=== PATIENT | female | born 1945 | race Caucasian/White ===

== ENCOUNTER 2018-01-29 12:19 | Observation (INO) | payer MEDICARE, OTHER, SELFPAY ==
[2018-01-29] VITALS (11 sets, daily range): BP systolic 115–152; BP diastolic 67–83; PULSE 60–80; RESP 14–18; TEMP 36.8–37.2; O2SAT 95–99; BMI 27.3; BMI 25.8; BMI 25.9
--- NOTE | 2018-01-29 12:25 | NURSING ---
NO OLD EKGS
--- NOTE | 2018-01-29 13:06 | EKG12_ITS ---
Test Reason : CP Blood Pressure : / mmHG Vent. Rate : 065 BPM Atrial Rate : 065 BPM P-R Int : 200 ms QRS Dur : 086 ms QT Int : 440 ms P-R-T Axes : 044 -07 047 degrees QTc Int : 457 ms Normal sinus rhythm Low voltage QRS Borderline ECG Confirmed by RENAY LAGUERRE, MITESH ([id number]), news video editor AG AGUILAR ([id number]) on 02/01/2018 1:21:33 PM Referred By: Mitesh Niño Confirmed By:MITESH NIÑO MD
--- NOTE | 2018-01-29 13:06 | RAD_ITS ---
STUDY: X-RAY CHEST REASON FOR EXAM: Female, 72 years old. Chest pain. TECHNIQUE: Single AP portable view of the chest. COMPARISON: Comparison is made with prior study dated September 09, 2014. FINDINGS: EKG lead which are seen. Hyperinflation. Scattered calcified granulomas. There is no demonstrated pleural abnormality. Normal size heart. Normal mediastinum and bailey. Normal visualized pulmonary arteries. There is atherosclerotic tortuosity of the aortic arch and descending thoracic aorta. There are degenerative changes of the visualized thoracic spine. Normal visualized ribs, clavicles, and shoulders. There is no demonstrated abnormality of the visualized soft tissue structures of the upper abdomen. RAD/Chest 1 View (Portable) IMPRESSION: Hyperinflation. Scattered calcified granulomas. Electronically Signed: Boris Pina MD at 13:26 EDT Tel [phone], Service support ,
[2018-01-29 13:18] LABS: Absolute Lymphocyte Count 2.32 X10^3/ul (0.83-4.51); Absolute Neutrophil Count 4.1 X10^3/uL (2.0-7.7); Basophil# 0.02 X10^3/uL; Basophil% 0.3 % (0-1); Eosinophil# 0.07 X10^3/uL; Hematocrit 42.7 % (37-47); Hemoglobin 13.9 g/dl (12.0-15.0); Lymphocyte # 2.32 X10^3/ul (4.0); Lymphocyte % 32.6 % (19-41); Mean Corp Hgb Conc 32.6 g/gl (32-36); Mean Corpuscular Hgb 32.8 pg (27.0-32.0); Mean Corpuscular Volume 100.7 fL (81-99); Mean Platelet Vol. 10.2 fl (6.2-12.0); Monocyte# 0.59 X10^3/uL; Monocyte% 8.3 % (0-10); Neutrophil # 4.11 X10^3/uL (2.7-7.7); Neutrophil % 57.8 % (47-70); Platelet Count 269 K/mm3 (150-450); RBC Distribution Width SD 47.4 fl (35.1-43.9); Red Blood Count 4.24 M/mm3 (4.2-5.4); White Blood Count 7.1 K/mm3 (4.4-11.0)
[2018-01-29 13:22] LABS: POSITIVE COUNT NO; POSITIVE DIFFERENTIAL NO; POSITIVE MORPHOLOGY NO
[2018-01-29 13:26] LABS: Anion Gap 8 (5-15); BUN 15 mg/dL (7-18); BUN/Creat Ratio 17.7 RATIO (10-20); Chloride 105 mmol/L (98-107); Creatinine, Serum 0.85 mg/dL (0.55-1.02); EST Glomerular Filtration Rate 70 mL/min (>60); Est Glom Filt Rate - Afr Amer 85 mL/min (>60); Estimated Creatinine Clearance 45.81 ml/min; Glucose 93 mg/dL (74-106); Potassium 3.6 mmol/L (3.5-5.1); Sodium Level 141 mmol/L (136-145)
[2018-01-29] MEDS: Nitroglycerin Oint 1 INCH PACKET TRANSDERM. ×2 (14:23→18:52)
[2018-01-29] MEDS: Acetaminophen 500 MG Tablet 1000 MG PO (15:12)
--- NOTE | 2018-01-29 15:18 | NURSING ---
DR SCHWAB IN ER
--- NOTE | 2018-01-29 15:22 | ED.VISSUMM ---
- ER Visit Summary Date of Service: 01/29/18 Chief Complaint: Chest pain History of Present Illness: The patient is a 72 F with intermittent chest pain for 2-3 days. The episodes last about a half an hour. No shortness of breath. No fever or chills she describes the episode of aching. She has a history of PTCA 3 years ago, as well as hypertension hypercholesterolemia and a strong family history of cardiac disease. Physical Examination: Not appear in acute distress. Moist mucous membranes, no obvious facial deformity No C-spine tenderness supple neck. Regular rate and rhythm without any obvious murmurs Clear lungs bilaterally speaking in full sentences without any obvious respiratory distress Abdomen soft and nontender no guarding or rebound Moves all extremities without any difficulty or pain. Skin does not show any obvious rashes or lesions, no trauma. Alert oriented ?3 with no gross focal deficit Emergency Department Course and Treatment: Patient has an unremarkable workup, normal EKG and first troponin, nitroglycerin was placed 1 inch, her chest pain is gone she developed a slight headache which was treated with Tylenol. I discussed the patient with cardiology, Dr. Rodriguez patient will be admitted for further workup. Disposition: Stable condition Impression: Chest pain This note was generated with [employer] dictation software. It may contain incorrect words, spelling, and punctuation that were not noted in review of the chart prior to signing ED Disposition - Plan for ED Patient: Chief Complaint: Chest Pain Referrals: Luis Lyons DO [Primary Care Provider] -
--- NOTE | 2018-01-29 15:38 | NURSING ---
CALLED TO GIVE OKAY SEND PT UP
--- NOTE | 2018-01-29 16:02 | PCM.HP.STD ---
Problem List (1) Hypertension Status: Chronic Qualifiers: (2) Hyperlipidemia Status: Chronic Qualifiers: (3) Mitral valve prolapse Status: Chronic (4) Atherosclerotic heart disease of [place] coronary artery without angina pectoris Status: Chronic Qualifiers: (5) Angina pectoris Status: Chronic (6) Postsurgical percutaneous transluminal coronary angioplasty (PTCA) status Status: Chronic Comment: PTCA with ALYSSA to proximal LAD 2004; PCI-ALYSSA LAD 09/18/14 @ [facility] (7) Encounter for long-term current use of high risk medication Status: Chronic (8) Palpitations Status: Chronic (9) Ventricular premature depolarization Status: Chronic (10) Atypical chest pain Status: Acute History of Present Illness Date of Admission: 01/29/18 Chief Complaint: Chest pain for last 1 week The patient is a 72 year old F with history of coronary artery disease status post stent in proximal LAD in 08/2014 in [facility] went to see Kristin Aceves in cardiology office from where she was sent to ED for evaluation of chest heaviness, progressively worsening for last 1 week. Patient said she was doing good after cardiac stent in 2014 until she noticed some chest heaviness and chest pounding on mild exertion/walking for last 1 week. She also gets mild shortness of breath along with chest tightness but denies near syncope or syncope. In ED, she was put on nitro ointment which she gave some relief but got headache. Vital signs are stable in ED. EKG shows normal sinus rhythm at [address]-T changes. [] Basic labs in ED is unremarkable. She further states her blood pressure and cholesterol level are controlled on medications. Chest x-ray does not show acute change. Past Medical History Past Medical History (Chronic Problems): Chronic Problems (Last Updated 10/27/17 @ 11:23 by KRISTIN Gutierrez) Hypertension (Chronic) Hyperlipidemia (Chronic) Mitral valve prolapse (Chronic) Atherosclerotic heart disease of [place] coronary artery without angina pectoris (Chronic) Angina pectoris (Chronic) Postsurgical percutaneous transluminal coronary angioplasty (PTCA) status (Chronic) PTCA with ALYSSA to proximal LAD 2004; PCI-ALYSSA LAD 09/18/14 @ [facility] Encounter for long-term current use of high risk medication (Chronic) Palpitations (Chronic) Ventricular premature depolarization (Chronic) Medical History: Medical History (Last Updated 10/27/17 @ 11:23 by KRISTIN Gutierrez) Hypertension (Chronic) I10 Hyperlipidemia (Chronic) E78.5 Mitral valve prolapse (Chronic) I34.1 Atherosclerotic heart disease of [place] coronary artery without angina pectoris (Chronic) I25.10 Angina pectoris (Chronic) I20.9 Palpitations (Chronic) R00.2 Ventricular premature depolarization (Chronic) I49.3 Body mass index (bmi) 27.0-27.9, adult Z68.27 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 Allergies lisinopril Allergy (Verified 01/29/18 12:22) Unknown Home Medications: Ambulatory Orders Medication Instructions Recorded Amlodipine Besylate [Amlodipine 5 mg PO DAILY 09/16/14 Besylate] Aspirin [Aspirin, Baby] 81 mg PO DAILY@0800 09/16/14 Atorvastatin Calcium [Lipitor] 80 mg PO QHS 09/16/14 Escitalopram Oxalate [Lexapro] 10 mg PO DAILY 09/16/14 Trazodone HCl 300 mg PO DAILY 09/16/14 hydrocodone 5 mg-acetaminophen 325 PO 7 Days #30 10/27/17 mg tablet ropinirole 0.5 mg tablet PO 90 Days #180 10/27/17 Amiodarone HCl 200 mg PO QDAY 01/29/18 Surgical History: Surgical History (Last Reviewed 01/29/18 @ 11:24 by Isabela Lares) Postsurgical percutaneous transluminal coronary angioplasty (PTCA) status (Chronic) Z98.61 PTCA with ALYSSA to proximal LAD 2004; PCI-ALYSSA LAD 09/18/14 @ [facility] H/O foot surgery Z98.890 H/O total hip arthroplasty Z96.649 right hip 10/2012 H/O: hysterectomy Z90.710 1969's Smoking Status: Never smoker - *Family History Paternal Family History: Family History (Last Reviewed 01/29/18 @ 11:24 by Isabela Lares) Father CAD (coronary artery disease) Cancer Rheumatoid arthritis Mother Cancer Brother Cancer Review of Systems Constitutional: Denies: Chills, Fever, Weight Change HEENT: Denies: Head Aches, Sinus Congestion, Sinus Drainage Cardiovascular: Reports: Heaviness. Denies: Palpitations Respiratory: Reports: Shortness of breath upon exertion. Denies: Cough, Shortness of breath at rest, Sputum production Gastrointestinal: Denies: Abdominal Pain, Nausea, Vomiting Genitourinary: Denies: Dysuria Musculoskeletal: Denies: Joint Pain, Joint Tenderness Skin: Denies: Rash, Wounds Neurological: Denies: Numbness, Tingling, Focal weakness Psychiatric: Denies: Anxiety, Depression, Homicidal Ideations, Suicidal Ideations Hematologic/ Lymphatic: Denies: Easy Bruising, Easy Bleeding VTE Information - Inpt Only VTE Present on Admission: No VTE Mechan Device Prophylaxis: SCD's VTE Pharm Prophylaxis ordered?: Yes Patient Problems: Active and Suspected Problems (Last Updated 10/27/17 @ 11:23 by KRISTIN Gutierrez) Atypical chest pain (Acute) - Physical Exam General: Alert, Oriented x3, Cooperative HEENT: Atraumatic, PERRLA, EOMI, Normocephalic Neck: Supple, No JVD, Negative Carotid Bruits Lungs: Clear to auscultation, Normal air movement Cardiovascular: Regular rate, Normal S1, Normal S2, No murmurs Abdomen: Bowel Sounds Present, Soft, Non Tender Extremities: No edema, Capillary Refill Less than 3 Seconds Skin: No rashes, No breakdown Musculoskeletal: - - She has orthopedic boot on right leg below knee. She has Achilles tendinopathy and was put on boot for last 3 weeks which will be changed to right below knee cast as per her box loader. Neurological: Cranial nerves II-XII grossly intact Psych/Mental Status: Normal Affect, Appropriate Vital Signs Temp Pulse Resp BP Pulse Ox 98.3 F 80 14 126/78 H 99 01/29/18 12:20 01/29/18 15:37 01/29/18 15:37 01/29/18 15:37 01/29/18 15:37 Assessment/Plan All Active Problems (Last Updated 10/27/17 @ 11:23 by KRISTIN Gutierrez) Atypical chest pain (Acute) The patient is a 72 year old F with history of coronary artery disease status post stent in proximal LAD in 08/2014 in [facility] went to see Kristin Aceves in cardiology office from where she was sent to ED for evaluation of chest heaviness, progressively worsening for last 1 week. Patient said she was doing good after cardiac stent in 2014 until she noticed some chest heaviness and chest pounding on mild exertion/walking for last 1 week. She also gets mild shortness of breath along with chest tightness but denies near syncope or syncope. In ED, she was put on nitro ointment which she gave some relief but got headache. Vital signs are stable in ED. EKG shows normal sinus rhythm at [address]-T changes. [] Basic labs in ED is unremarkable. She further states her blood pressure and cholesterol level are controlled on medications. Chest x-ray does not show acute change. 1. Chest pain possible unstable angina pectoris: Patient is being admitted to PCU for evaluation of possible unstable angina. Serial troponin enzymes. EKG if she gets chest pain. Discussed with coating and embossing unit operator Dr. eugene and he suggested possible cardiac cath tomorrow. Fasting lipid profile tomorrow a.m. Continue medical management for now including aspirin, amiodarone, and atorvastatin. Nitro sublingual as needed for chest pain. Patient complain of headaches and required removal of nitro patch 2. Coronary artery disease status post stent in proximal LAD: 3. Right Achilles tendinopathy: The patient has orthopedic boot on right leg below knee. She has Achilles tendinopathy and was put on boot for last 3 weeks which which is supposed to be changed to right below knee cast as per her box loader in the next 1 weeks. Follow box loader as an outpatient. Other comorbidities include hypertension, dyslipidemia, mild anxiety: Home medication reconciliation done. DVT prophylaxis: On heparin 5000 units every 8 hourly and left leg SCDs. This note was generated with [employer] dictation software. Every effort was made to ensure accuracy, however computerized power plant operators supervisor mistakes may persist. Code Visit OBSV E&M: 27616 Initial observation care L3
--- NOTE | 2018-01-29 16:06 | EKG12_ITS ---
Test Reason : Blood Pressure : / mmHG Vent. Rate : 061 BPM Atrial Rate : 061 BPM P-R Int : 214 ms QRS Dur : 082 ms QT Int : 444 ms P-R-T Axes : 042 -13 051 degrees QTc Int : 446 ms Sinus rhythm with 1st degree A-V block Low voltage QRS Nonspecific T wave abnormality Borderline ECG Confirmed by RENAY LAGUERRE, MITESH ([id number]), online content editor AG AGUILAR ([id number]) on 02/01/2018 2:03:56 PM Referred By: Mitesh Niño Confirmed By:MITESH NIÑO MD
--- NOTE | 2018-01-29 16:13 | HP.PCM_ITS ---
Problem List (1) Hypertension Status: Chronic Qualifiers: (2) Hyperlipidemia Status: Chronic Qualifiers: (3) Mitral valve prolapse Status: Chronic (4) Atherosclerotic heart disease of [place] coronary artery without angina pectoris Status: Chronic Qualifiers: (5) Angina pectoris Status: Chronic (6) Postsurgical percutaneous transluminal coronary angioplasty (PTCA) status Status: Chronic Comment: PTCA with ALYSSA to proximal LAD 2004; PCI-ALYSSA LAD @ [facility] (7) Encounter for long-term current use of high risk medication Status: Chronic (8) Palpitations Status: Chronic (9) Ventricular premature depolarization Status: Chronic (10) Atypical chest pain Status: Acute History of Present Illness Date of Admission: 01/29/18 Chief Complaint: Chest pain for last 1 week The patient is a 72 year old F with history of coronary artery disease status post stent in proximal LAD in 08/2014 in [facility] went to see Kristin Aceves in cardiology office from where she was sent to ED for evaluation of chest heaviness, progressively worsening for last 1 week. Patient said she was doing good after cardiac stent in 2014 until she noticed some chest heaviness and chest pounding on mild exertion/walking for last 1 week. She also gets mild shortness of breath along with chest tightness but denies near syncope or syncope. In ED, she was put on nitro ointment which she gave some relief but got headache. Vital signs are stable in ED. EKG shows normal sinus rhythm at [address]-T changes. [] Basic labs in ED is unremarkable. She further states her blood pressure and cholesterol level are controlled on medications. Chest x-ray does not show acute change. Past Medical History Past Medical History (Chronic Problems): Chronic Problems (Last Updated 10/27/17 @ 11:23 by KRISTIN uGtierrez) Hypertension (Chronic) Hyperlipidemia (Chronic) Mitral valve prolapse (Chronic) Atherosclerotic heart disease of [place] coronary artery without angina pectoris (Chronic) Angina pectoris (Chronic) Postsurgical percutaneous transluminal coronary angioplasty (PTCA) status ( Chronic) PTCA with ALYSSA to proximal LAD 2004; PCI-ALYSSA LAD 09/18/14 @ [facility] Encounter for long-term current use of high risk medication (Chronic) Palpitations (Chronic) Ventricular premature depolarization (Chronic) Medical History: Medical History (Last Updated 10/27/17 @ 11:23 by KRISTIN Gutierrez) Hypertension (Chronic) I10 Hyperlipidemia (Chronic) E78.5 Mitral valve prolapse (Chronic) I34.1 Atherosclerotic heart disease of [place] coronary artery without angina pectoris (Chronic) I25.10 Angina pectoris (Chronic) I20.9 Palpitations (Chronic) R00.2 Ventricular premature depolarization (Chronic) I49.3 Body mass index (bmi) 27.0-27.9, adult Z68.27 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 Allergies lisinopril Allergy (Verified 01/29/18 12:22) Unknown Home Medications: Ambulatory Orders Medication Instructions Recorded Amlodipine Besylate [Amlodipine 5 mg PO DAILY 09/16/14 Besylate] Aspirin [Aspirin, Baby] 81 mg PO DAILY@0800 09/16/14 Atorvastatin Calcium [Lipitor] 80 mg PO QHS 09/16/14 Escitalopram Oxalate [Lexapro] 10 mg PO DAILY 09/16/14 Trazodone HCl 300 mg PO DAILY 09/16/14 hydrocodone 5 mg-acetaminophen 325 PO 7 Days #30 10/27/17 mg tablet ropinirole 0.5 mg tablet PO 90 Days #180 10/27/17 Amiodarone HCl 200 mg PO QDAY 01/29/18 Surgical History: Surgical History (Last Reviewed 01/29/18 @ 11:24 by Isabela Lares) Postsurgical percutaneous transluminal coronary angioplasty (PTCA) status ( Chronic) Z98.61 PTCA with ALYSSA to proximal LAD 2004; PCI-ALYSSA LAD 09/18/14 @ [facility] H/O foot surgery Z98.890 H/O total hip arthroplasty Z96.649 right hip 10/2012 H/O: hysterectomy Z90.710 1969's Smoking Status: Never smoker - *Family History Paternal Family History: Family History (Last Reviewed 01/29/18 @ 11:24 by Isabela Lares) Father CAD (coronary artery disease) Cancer Rheumatoid arthritis Mother Cancer Brother Cancer Review of Systems Constitutional: Denies: Chills, Fever, Weight Change HEENT: Denies: Head Aches, Sinus Congestion, Sinus Drainage Cardiovascular: Reports: Heaviness. Denies: Palpitations Respiratory: Reports: Shortness of breath upon exertion. Denies: Cough, Shortness of breath at rest, Sputum production Gastrointestinal: Denies: Abdominal Pain, Nausea, Vomiting Genitourinary: Denies: Dysuria Musculoskeletal: Denies: Joint Pain, Joint Tenderness Skin: Denies: Rash, Wounds Neurological: Denies: Numbness, Tingling, Focal weakness Psychiatric: Denies: Anxiety, Depression, Homicidal Ideations, Suicidal Ideations Hematologic/ Lymphatic: Denies: Easy Bruising, Easy Bleeding VTE Information - Inpt Only VTE Present on Admission: No VTE Mechan Device Prophylaxis: SCD's VTE Pharm Prophylaxis ordered?: Yes Patient Problems: Active and Suspected Problems (Last Updated 10/27/17 @ 11:23 by KRISTIN Gutierrez) Atypical chest pain (Acute) - Physical Exam General: Alert, Oriented x3, Cooperative HEENT: Atraumatic, PERRLA, EOMI, Normocephalic Neck: Supple, No JVD, Negative Carotid Bruits Lungs: Clear to auscultation, Normal air movement Cardiovascular: Regular rate, Normal S1, Normal S2, No murmurs Abdomen: Bowel Sounds Present, Soft, Non Tender Extremities: No edema, Capillary Refill Less than 3 Seconds Skin: No rashes, No breakdown Musculoskeletal: - - She has orthopedic boot on right leg below knee. She has Achilles tendinopathy and was put on boot for last 3 weeks which will be changed to right below knee cast as per her pipe and boiler covers supervisor. Neurological: Cranial nerves II-XII grossly intact Psych/Mental Status: Normal Affect, Appropriate Vital Signs Temp Pulse Resp BP Pulse Ox 98.3 F 80 14 126/78 H 99 01/29/18 12:20 01/29/18 15:37 01/29/18 15:37 01/29/18 15:37 01/29/18 15:37 Assessment/Plan All Active Problems (Last Updated 10/27/17 @ 11:23 by KRISTIN Gutierrez) Atypical chest pain (Acute) The patient is a 72 year old F with history of coronary artery disease status post stent in proximal LAD in 08/2014 in [facility] went to see Kristin Aceves in cardiology office from where she was sent to ED for evaluation of chest heaviness, progressively worsening for last 1 week. Patient said she was doing good after cardiac stent in 2014 until she noticed some chest heaviness and chest pounding on mild exertion/walking for last 1 week. She also gets mild shortness of breath along with chest tightness but denies near syncope or syncope. In ED, she was put on nitro ointment which she gave some relief but got headache. Vital signs are stable in ED. EKG shows normal sinus rhythm at [address]-T changes. [] Basic labs in ED is unremarkable. She further states her blood pressure and cholesterol level are controlled on medications. Chest x-ray does not show acute change. 1. Chest pain possible unstable angina pectoris: Patient is being admitted to PCU for evaluation of possible unstable angina. Serial troponin enzymes. EKG if she gets chest pain. Discussed with repairer cylinder heads Dr. eugene and he suggested possible cardiac cath tomorrow. Fasting lipid profile tomorrow a.m. Continue medical management for now including aspirin, amiodarone, and atorvastatin. Nitro sublingual as needed for chest pain. Patient complain of headaches and required removal of nitro patch 2. Coronary artery disease status post stent in proximal LAD: 3. Right Achilles tendinopathy: The patient has orthopedic boot on right leg below knee. She has Achilles tendinopathy and was put on boot for last 3 weeks which which is supposed to be changed to right below knee cast as per her pipe and boiler covers supervisor in the next 1 weeks. Follow pipe and boiler covers supervisor as an outpatient. Other comorbidities include hypertension, dyslipidemia, mild anxiety: Home medication reconciliation done. DVT prophylaxis: On heparin 5000 units every 8 hourly and left leg SCDs. This note was generated with [employer] dictation software. Every effort was made to ensure accuracy, however computerized all source analyst mistakes may persist. Code Visit OBSV E&M: 45734 Initial observation care L3
[2018-01-29] MEDS: HYDROcodone Bitartrate/Apap 5/325 Tablet PO (16:52)
--- NOTE | 2018-01-29 17:48 | PCM.CONS.C ---
Reason for Consult Date of Consultation: 01/29/18 Reason for Consultation: Chest discomfort. History of Present Illness: The patient is a 72 year old F with a history of known coronary artery disease who says that over the last few days she has been having chest discomfort described as a heaviness across her chest radiating to the left side of her shoulder associated with exertion such as walking and going away with rest. It was also associated with mild shortness of breath and some chest pounding. She presented to the office where she saw the physician bankruptcy assistant and was sent to the emergency room for further evaluation and management. In the emergency room she was giving nitroglycerin ointment with some relief but there was significant headache associated with it cardiology was called to further evaluate her. She has had no dizziness or diaphoresis no near syncope or syncope she has been compliant with her medications. In the emergency room her electrocardiogram demonstrated normal sinus rhythm with rate of 61 bpm and no acute changes. She does have a history of coronary artery disease status post angioplasty and stenting with a drug-eluting stent to the proximal left anterior descending artery in 2004 and PCI with drug-eluting stent to the LAD in August 2014. [] Past Medical History Allergies/Adverse Reactions: Allergies lisinopril Allergy (Verified 01/29/18 12:22) Unknown Home Medications: Ambulatory Orders Medication Instructions Recorded Amlodipine Besylate [Amlodipine 5 mg PO DAILY 09/16/14 Besylate] Aspirin [Aspirin, Baby] 81 mg PO QHS 09/16/14 Atorvastatin Calcium [Lipitor] 80 mg PO DAILY 09/16/14 Escitalopram Oxalate [Lexapro] 10 mg PO DAILY 09/16/14 Trazodone HCl 300 mg PO DAILY 09/16/14 hydrocodone 5 mg-acetaminophen 325 1 tab PO PRN PRN 7 Days #30 10/27/17 mg tablet ropinirole 0.5 mg tablet 1 mg PO QHS 90 Days #180 10/27/17 Amiodarone HCl 200 mg PO QDAY 01/29/18 Past Medical History (Chronic Problems): Chronic Problems (Last Updated 10/27/17 @ 11:23 by KRISTIN Gutierrez) Hypertension (Chronic) Hyperlipidemia (Chronic) Mitral valve prolapse (Chronic) Atherosclerotic heart disease of [place] coronary artery without angina pectoris (Chronic) Angina pectoris (Chronic) Postsurgical percutaneous transluminal coronary angioplasty (PTCA) status (Chronic) PTCA with ALYSSA to proximal LAD 2004; PCI-ALYSSA LAD 09/18/14 @ [facility] Encounter for long-term current use of high risk medication (Chronic) Palpitations (Chronic) Ventricular premature depolarization (Chronic) Surgical History: no surgical history - *Family History Paternal Family History: Family History (Last Reviewed 01/29/18 @ 11:24 by Isabela Lares) Father CAD (coronary artery disease) Cancer Rheumatoid arthritis Mother Cancer Brother Cancer Smoking Status: Never smoker Alcohol: None Drugs: None Review of Systems - Review of Systems General: Denies: Fever, Night Sweats, Fatigue Cardiovascular: Reports: Chest Discomfort, Chest Discomfort at Rest, Chest Discomfort with Exertion, Chest Pressure, Chest Tightness, Shortness of Breath, Shortness of Breath with Exertion. Denies: Orthopnea, PND, Peripheral Edema, Palpitations, Lightheadedness, Dizziness, Near Syncope, Syncope Respiratory: Denies: Cough, Sputum Production, Hemoptysis Gastrointestinal: Denies: Hematemesis, Hematochezia, Melena Genitourinary: Denies: Dysuria, Hematuria Skin: Denies: Rash Subjectve: Pleasant lady in no apparent distress Objective: Vital Signs Temp Pulse Resp BP Pulse Ox 98.8 F 67 18 115/71 95 01/29/18 16:15 01/29/18 16:15 01/29/18 16:15 01/29/18 16:15 01/29/18 16:15 Oxygen Delivery Method Room Air Weight: 146 lb Body Mass Index (BMI) 25.8 General: Awake, Alert, Oriented x 3 HEENT: PERRL, EOMI, Sclera Non Icteric Neck: Supple, Good ROM, No Lymph Node Enlargement Lungs: Clear to auscultation Cardiovascular: Regular Rhythm, Normal S1, Normal S2, No Murmurs, No Rubs, No Gallops Vascular: No Carotid Bruits, Normal Femoral Pulses, Normal Radial Pulses, Normal Dorsalis Pedal Pulse, Normal Posterior Tibial Pulses Abdomen: Bowel Sounds Present, Soft, Non Tender, No HSM, No Organomegaly Extremities: No Cyanosis, No Clubbing, No edema Neurological: No Focal Motor or Sensory Deficit 01/29/18 16:20: Troponin I < 0.015 Rhythm: EKG: Normal sinus rhythm with no acute changes Assessment/Plan 1. New onset angina. Patient presents with exertional chest discomfort which is relieved by rest as well as sublingual nitroglycerin. My recommendation at this time would be for her to continue the medical therapy with aspirin and atorvastatin and amlodipine and to consider a cardiac catheterization in a.m. The risk benefits and alternatives have been discussed with her she understands and agrees to proceed. Will load with clopidogrel Continue aspirin Will hold beta-romeo for now as patient is noted to be rather bradycardic Oral nitrates. 2. Hypertension Her blood pressure appears to be under decent control at this time on the current medical therapy and no changes will be made. Her last echocardiogram in 2017 demonstrated preserved ejection fraction with no wall motion abnormalities. 3. Hyperlipidemia She will continue with her high intensity statin. It is not clear to me why she is on amiodarone at this time but I will suggest holding it for now. Thank you for allowing me to participate in the care of your patient. Please don't hesitate to call if any issues arise
--- NOTE | 2018-01-29 17:54 | CON.PCM_ITS ---
Reason for Consult Date of Consultation: 01/29/18 Reason for Consultation: Chest discomfort. History of Present Illness: The patient is a 72 year old F with a history of known coronary artery disease who says that over the last few days she has been having chest discomfort described as a heaviness across her chest radiating to the left side of her shoulder associated with exertion such as walking and going away with rest. It was also associated with mild shortness of breath and some chest pounding. She presented to the office where she saw the physician service assistant and was sent to the emergency room for further evaluation and management. In the emergency room she was giving nitroglycerin ointment with some relief but there was significant headache associated with it cardiology was called to further evaluate her. She has had no dizziness or diaphoresis no near syncope or syncope she has been compliant with her medications. In the emergency room her electrocardiogram demonstrated normal sinus rhythm with rate of 61 bpm and no acute changes. She does have a history of coronary artery disease status post angioplasty and stenting with a drug-eluting stent to the proximal left anterior descending artery in 2004 and PCI with drug-eluting stent to the LAD in August 2014. [] Past Medical History Allergies/Adverse Reactions: Allergies lisinopril Allergy (Verified 01/29/18 12:22) Unknown Home Medications: Ambulatory Orders Medication Instructions Recorded Amlodipine Besylate [Amlodipine 5 mg PO DAILY 09/16/14 Besylate] Aspirin [Aspirin, Baby] 81 mg PO QHS 09/16/14 Atorvastatin Calcium [Lipitor] 80 mg PO DAILY 09/16/14 Escitalopram Oxalate [Lexapro] 10 mg PO DAILY 09/16/14 Trazodone HCl 300 mg PO DAILY 09/16/14 hydrocodone 5 mg-acetaminophen 325 1 tab PO PRN PRN 7 Days #30 10/27/17 mg tablet ropinirole 0.5 mg tablet 1 mg PO QHS 90 Days #180 10/27/17 Amiodarone HCl 200 mg PO QDAY 01/29/18 Past Medical History (Chronic Problems): Chronic Problems (Last Updated 10/27/17 @ 11:23 by KRISTIN Gutierrez) Hypertension (Chronic) Hyperlipidemia (Chronic) Mitral valve prolapse (Chronic) Atherosclerotic heart disease of [place] coronary artery without angina pectoris (Chronic) Angina pectoris (Chronic) Postsurgical percutaneous transluminal coronary angioplasty (PTCA) status ( Chronic) PTCA with ALYSSA to proximal LAD 2004; PCI-ALYSSA LAD 09/18/14 @ [facility] Encounter for long-term current use of high risk medication (Chronic) Palpitations (Chronic) Ventricular premature depolarization (Chronic) Surgical History: no surgical history - *Family History Paternal Family History: Family History (Last Reviewed 01/29/18 @ 11:24 by Isabela Lares) Father CAD (coronary artery disease) Cancer Rheumatoid arthritis Mother Cancer Brother Cancer Smoking Status: Never smoker Alcohol: None Drugs: None Review of Systems - Review of Systems General: Denies: Fever, Night Sweats, Fatigue Cardiovascular: Reports: Chest Discomfort, Chest Discomfort at Rest, Chest Discomfort with Exertion, Chest Pressure, Chest Tightness, Shortness of Breath, Shortness of Breath with Exertion. Denies: Orthopnea, PND, Peripheral Edema, Palpitations, Lightheadedness, Dizziness, Near Syncope, Syncope Respiratory: Denies: Cough, Sputum Production, Hemoptysis Gastrointestinal: Denies: Hematemesis, Hematochezia, Melena Genitourinary: Denies: Dysuria, Hematuria Skin: Denies: Rash Subjectve: Pleasant lady in no apparent distress Objective: Vital Signs Temp Pulse Resp BP Pulse Ox 98.8 F 67 18 115/71 95 01/29/18 16:15 01/29/18 16:15 01/29/18 16:15 01/29/18 16:15 01/29/18 16:15 Oxygen Delivery Method Room Air Weight: 146 lb Body Mass Index (BMI) 25.8 General: Awake, Alert, Oriented x 3 HEENT: PERRL, EOMI, Sclera Non Icteric Neck: Supple, Good ROM, No Lymph Node Enlargement Lungs: Clear to auscultation Cardiovascular: Regular Rhythm, Normal S1, Normal S2, No Murmurs, No Rubs, No Gallops Vascular: No Carotid Bruits, Normal Femoral Pulses, Normal Radial Pulses, Normal Dorsalis Pedal Pulse, Normal Posterior Tibial Pulses Abdomen: Bowel Sounds Present, Soft, Non Tender, No HSM, No Organomegaly Extremities: No Cyanosis, No Clubbing, No edema Neurological: No Focal Motor or Sensory Deficit 01/29/18 16:20: Troponin I < 0.015 Rhythm: EKG: Normal sinus rhythm with no acute changes Assessment/Plan 1. New onset angina. Patient presents with exertional chest discomfort which is relieved by rest as well as sublingual nitroglycerin. My recommendation at this time would be for her to continue the medical therapy with aspirin and atorvastatin and amlodipine and to consider a cardiac catheterization in a.m. The risk benefits and alternatives have been discussed with her she understands and agrees to proceed. * Will load with clopidogrel * Continue aspirin * Will hold beta-romeo for now as patient is noted to be rather bradycardic * Oral nitrates. 2. Hypertension * Her blood pressure appears to be under decent control at this time on the current medical therapy and no changes will be made. * Her last echocardiogram in 2017 demonstrated preserved ejection fraction with no wall motion abnormalities. 3. Hyperlipidemia * She will continue with her high intensity statin. * It is not clear to me why she is on amiodarone at this time but I will suggest holding it for now. Thank you for allowing me to participate in the care of your patient. Please don't hesitate to call if any issues arise
[2018-01-29] MEDS: Heparin Injection (Vial) 5,000 UNIT/ML VIAL 5000 UNIT SC ×2 (18:27→20:57)
[2018-01-29] MEDS: Acetaminophen 325 MG Tablet 650 MG PO (18:30)
[2018-01-29] MEDS: Clopidogrel Bisulfate 300 MG Tablet PO (18:52)
[2018-01-29] MEDS: 0.9% NaCl Peripheral Flush Adult/Peds IV (20:46)
[2018-01-29] MEDS: Ketorolac 30 MG/ML Syringe IV (20:46)
[2018-01-29] MEDS: Aspirin 81 MG TAB.CHEW PO (20:57)
[2018-01-29] MEDS: Pramipexole Di-HCl 0.5 MG Tablet PO (20:57)
[2018-01-29] MEDS: traZODone 100 MG Tablet 300 MG PO (21:02)
[2018-01-30] VITALS (12 sets, daily range): BP systolic 110–133; BP diastolic 65–80; PULSE 59–68; RESP 16; TEMP 36.9; O2SAT 93–96
[2018-01-30] MEDS: Clopidogrel Bisulfate 75 MG Tablet PO (04:54)
[2018-01-30] MEDS: Aspirin 81 MG TAB.CHEW PO (04:54)
[2018-01-30] MEDS: amLODIPine 5 MG Tablet PO (04:55)
--- NOTE | 2018-01-30 05:55 | EKG12_ITS ---
Test Reason : AM EKG Blood Pressure : / mmHG Vent. Rate : 061 BPM Atrial Rate : 061 BPM P-R Int : 232 ms QRS Dur : 080 ms QT Int : 458 ms P-R-T Axes : 029 001 063 degrees QTc Int : 461 ms Sinus rhythm with 1st degree A-V block Low voltage QRS Nonspecific T wave abnormality Borderline ECG Confirmed by RENAY LAGUERRE, MITESH ([id number]), editorial clerk AG AGUILAR ([id number] on 02/01/2018 2:03:18 PM Referred By: Mitesh Niño Confirmed By:MITESH NIÑO MD
[2018-01-30 06:09] LABS: Prothrombin Time (Protime)PT. 13.5 SECONDS (11.7-14.9)
[2018-01-30 06:10] LABS: Partial Thromboplast Time 47.9 Seconds (24.1-36.2)
[2018-01-30 06:23] LABS: Absolute Lymphocyte Count 1.69 X10^3/ul (0.83-4.51); Absolute Neutrophil Count 3.3 X10^3/uL (2.0-7.7); Basophil# 0.03 X10^3/uL; Basophil% 0.5 % (0-1); Eosinophils% 1.7 % (0-5); Hematocrit 38.9 % (37-47); Hemoglobin 12.8 g/dl (12.0-15.0); Lymphocyte # 1.69 X10^3/ul (4.0); Lymphocyte % 29.2 % (19-41); Mean Corp Hgb Conc 32.9 g/gl (32-36); Mean Corpuscular Hgb 33.1 pg (27.0-32.0); Mean Corpuscular Volume 100.5 fL (81-99); Mean Platelet Vol. 10.2 fl (6.2-12.0); Monocyte# 0.66 X10^3/uL; Monocyte% 11.4 % (0-10); Platelet Count 253 K/mm3 (150-450); RBC Distribution Width CV 12.9 % (11.6-14.6); RBC Distribution Width SD 47.3 fl (35.1-43.9); Red Blood Count 3.87 M/mm3 (4.2-5.4); White Blood Count 5.8 K/mm3 (4.4-11.0)
[2018-01-30 06:26] LABS: POSITIVE COUNT NO; POSITIVE DIFFERENTIAL NO; POSITIVE MORPHOLOGY NO
[2018-01-30 06:36] LABS: Anion Gap 10 (5-15); BUN 18 mg/dL (7-18); BUN/Creat Ratio 24.3 RATIO (10-20); Calcium,Total 8.2 mg/dL (8.5-10.1); Chloride 109 mmol/L (98-107); Cholesterol 149 mg/dL (200); Creatinine, Serum 0.74 mg/dL (0.55-1.02); EST Glomerular Filtration Rate 82 mL/min (>60); Est Glom Filt Rate - Afr Amer 99 mL/min (>60); Estimated Creatinine Clearance 42.68 ml/min; Glucose 82 mg/dL (74-106); High Density Lipoprotein 69 mg/dL; Potassium 3.6 mmol/L (3.5-5.1); Sodium Level 144 mmol/L (136-145); Thyroid Stim Hormone (TSH) 2.08 uIU/mL (0.358-3.74); Triglycerides 68 mg/dL; Very Low Density Lipoprotein 14 mg/dL (5-40)
--- NOTE | 2018-01-30 08:23 | PCM.PN.CARD ---
Subjectve: The patient is now status post diagnostic cardiac catheterization. She has no new acute complaints. Objective: Vital Signs Temp Pulse Resp BP Pulse Ox 98.4 F 68 16 128/80 H 96 01/30/18 04:15 01/30/18 07:17 01/30/18 04:15 01/30/18 04:15 01/30/18 04:15 Oxygen Delivery Method Room Air Weight: 146 lb Body Mass Index (BMI) 25.8 Intake and Output for Last 24 Hours 01/28/18 01/29/18 01/30/18 23:59 23:59 23:59 Intake Total 480 / 480 270 / 270 Balance 480 / 480 270 / 270 General: Awake, Alert, Oriented x 3, Cooperative, No Acute Distress HEENT: Atraumatic, Normocephalic, PERRL, EOMI, Sclera Non Icteric Oral: Moist Mucosa Neck: Supple, Good ROM Lungs: Clear to auscultation Cardiovascular: Regular Rhythm, Normal S1, Normal S2 Vascular: No Carotid Bruits Abdomen: Bowel Sounds Present, Soft, Non Tender Extremities: No Cyanosis, No Clubbing, No edema Neurological: No Focal Motor or Sensory Deficit Psych/Mental Status: Appropriate, Normal Affect 01/29/18 16:20: Troponin I < 0.015 01/29/18 18:57: Troponin I < 0.015 01/30/18 05:29: Sodium 144, Potassium 3.6, Chloride 109 H, Carbon Dioxide 25.0, Anion Gap 10, BUN 18, Creatinine 0.74, Est GFR (MDRD) Af Amer 99, Est GFR (MDRD) Non-Af 82, BUN/Creatinine Ratio 24.3 H, Glucose 82, Calcium 8.2 L, Triglycerides 68, Cholesterol 149, LDL Cholesterol 66, VLDL Cholesterol 14, HDL Cholesterol 69 01/30/18 05:29: WBC 5.8, RBC 3.87 L, Hgb 12.8, Hct 38.9, MCV 100.5 H, MCH 33.1 H, MCHC 32.9, RDW 12.9, RDW Differential 47.3 H, Plt Count 253, MPV 10.2, Immature Gran % (Auto) 0.200, Neut % (Auto) 57.0, Lymph % (Auto) 29.2, [place] % (Auto) 11.4 H, Eos % (Auto) 1.7, Baso % (Auto) 0.5, Absolute Neuts (auto) 3.3, Total Counted Not Reportable 01/30/18 05:29: PT 13.5, INR 1.0, APTT 47.9 H Rhythm: Sinus rhythm EKG: Sinus rhythm; first-degree AV block; borderline low voltage QRS Cardiac Cath: Please see official report Medical Necessity - Tobacco Use Smoking Status: Never smoker Assessment/Plan 1. CAD status post LAD PCI-remote The patient presented with chest discomfort. Her cardiac enzymes have been negative. Her ECG has demonstrated no new acute ECG changes. She is now status post diagnostic cardiac catheterization. This appear to demonstrate overall preserved left ventricular size, wall motion, and systolic function. The LAD stent is patent without obvious angiographically significant appearing in-stent restenosis. The remainder of her coronary artery anatomy appear to be without obvious angiographically significant appearing stenosis. Thus there is a concern that her ongoing symptoms are not related to her underlying CAD process and/or a cardiovascular process. She should be considered for noncardiovascular evaluation at this time. 2. Mitral valve disorder The patient has been given a diagnosis in the past of mitral valve prolapse/mitral valve regurgitation. She appears to be without acute symptoms related to this at this time. Her last transthoracic echocardiogram performed on 10/31/2016 suggested that her mitral valve appeared to be normal with mild to moderate MR. This can be followed by history, exam, and echocardiogram as deemed appropriate. 3. Hyperlipidemia The patient should continue lipid-lowering medication and adjustment as deemed appropriate. 4. Hypertension The patient's blood pressure can be followed. Her medications can be adjusted as deemed appropriate. Comment: The above was discussed and reviewed with the patient and her spouse. This note was generated with [employer] software. It may contain incorrect words, spelling, and punctuation that were not noted in checking the note before signing.
--- NOTE | 2018-01-30 08:28 | PN.CARD_ITS ---
Subjectve: The patient is now status post diagnostic cardiac catheterization. She has no new acute complaints. Objective: Vital Signs Temp Pulse Resp BP Pulse Ox 98.4 F 68 16 128/80 H 96 01/30/18 04:15 01/30/18 07:17 01/30/18 04:15 01/30/18 04:15 01/30/18 04:15 Oxygen Delivery Method Room Air Weight: 146 lb Body Mass Index (BMI) 25.8 Intake and Output for Last 24 Hours 01/28/18 01/29/18 01/30/18 23:59 23:59 23:59 Intake Total 480 / 480 270 / 270 Balance 480 / 480 270 / 270 General: Awake, Alert, Oriented x 3, Cooperative, No Acute Distress HEENT: Atraumatic, Normocephalic, PERRL, EOMI, Sclera Non Icteric Oral: Moist Mucosa Neck: Supple, Good ROM Lungs: Clear to auscultation Cardiovascular: Regular Rhythm, Normal S1, Normal S2 Vascular: No Carotid Bruits Abdomen: Bowel Sounds Present, Soft, Non Tender Extremities: No Cyanosis, No Clubbing, No edema Neurological: No Focal Motor or Sensory Deficit Psych/Mental Status: Appropriate, Normal Affect 01/29/18 16:20: Troponin I < 0.015 01/29/18 18:57: Troponin I < 0.015 01/30/18 05:29: Sodium 144, Potassium 3.6, Chloride 109 H, Carbon Dioxide 25.0, Anion Gap 10, BUN 18, Creatinine 0.74, Est GFR (MDRD) Af Amer 99, Est GFR (MDRD ) Non-Af 82, BUN/Creatinine Ratio 24.3 H, Glucose 82, Calcium 8.2 L, Triglycerides 68, Cholesterol 149, LDL Cholesterol 66, VLDL Cholesterol 14, HDL Cholesterol 69 01/30/18 05:29: WBC 5.8, RBC 3.87 L, Hgb 12.8, Hct 38.9, MCV 100.5 H, MCH 33.1 H , MCHC 32.9, RDW 12.9, RDW Differential 47.3 H, Plt Count 253, MPV 10.2, Immature Gran % (Auto) 0.200, Neut % (Auto) 57.0, Lymph % (Auto) 29.2, [place] % ( Auto) 11.4 H, Eos % (Auto) 1.7, Baso % (Auto) 0.5, Absolute Neuts (auto) 3.3, Total Counted Not Reportable 01/30/18 05:29: PT 13.5, INR 1.0, APTT 47.9 H Rhythm: Sinus rhythm EKG: Sinus rhythm; first-degree AV block; borderline low voltage QRS Cardiac Cath: Please see official report Medical Necessity - Tobacco Use Smoking Status: Never smoker Assessment/Plan 1. CAD status post LAD PCI-remote The patient presented with chest discomfort. Her cardiac enzymes have been negative. Her ECG has demonstrated no new acute ECG changes. She is now status post diagnostic cardiac catheterization. This appear to demonstrate overall preserved left ventricular size, wall motion, and systolic function. The LAD stent is patent without obvious angiographically significant appearing in-stent restenosis. The remainder of her coronary artery anatomy appear to be without obvious angiographically significant appearing stenosis. Thus there is a concern that her ongoing symptoms are not related to her underlying CAD process and/or a cardiovascular process. She should be considered for noncardiovascular evaluation at this time. 2. Mitral valve disorder The patient has been given a diagnosis in the past of mitral valve prolapse/ mitral valve regurgitation. She appears to be without acute symptoms related to this at this time. Her last transthoracic echocardiogram performed on 10/31/2016 suggested that her mitral valve appeared to be normal with mild to moderate MR. This can be followed by history, exam, and echocardiogram as deemed appropriate. 3. Hyperlipidemia The patient should continue lipid-lowering medication and adjustment as deemed appropriate. 4. Hypertension The patient's blood pressure can be followed. Her medications can be adjusted as deemed appropriate. Comment: The above was discussed and reviewed with the patient and her spouse. This note was generated with [employer] software. It may contain incorrect words, spelling, and punctuation that were not noted in checking the note before signing.
--- NOTE | 2018-01-30 08:41 | CL.D_ITS ---
Patient Name: JACKIE BAUTISTA Study Date: 01/30/2018 Performing: Mitesh Santillan MD Ht: 63 inches 160 cm : 1945 Wt: 145.7 lbs 66 kg Age: 72 Gender: female BSA: 1.69 PROCEDURE(S) PERFORMED [id number]/LV CLINICAL PROFILE AND INDICATIONS Indications: Worsening Angina Heart Failure: None Stress/Imaging Stress/Image Study Performed: No Angina Classification Anginal Classification w/in 2 Weeks: CCS IV CAD Presentations: Unstable angina. CONCLUSIONS Elevated Left Ventricular End Diastolic Pressure Normal LV size, wall motion,and systolic function LVEF: by LV gram 65 % [place] Multivessel CAD (LAD Stent: patent) RECOMMENDATIONS Risk factor modification Medical therapy DESCRIPTION OF PROCEDURE The patient arrived to the procedure lab. The risks and benefits of the procedure as well as a full d escription of our services here and current unavailability of surgical backup were fully explained to the patient and/or their significant other prior to the catheterization. The Timeout was completed, verifying the correct patient and procedure. The patient's procedural site was prepped and draped in the usual fashion. Local anesthetic was given subcutaneously to right radial region with Lidocaine 2% . Using a modified Seldinger technique, arterial access was obtained via the right radial artery, a 6 Fr sheath was inserted. Left Coronary Artery selective angiography was performed in multiple views u sing a 5 Fr. 4.0 [place] catheter. Right Coronary Artery selective angiography was then performed in mu ltiple views using a 5 Fr. 4.0 [place] catheter. Left Ventriculography was performed in BERMEO projection using a 4 Fr. Pigtail catheter. LV to AO pullback pressures were then recorded.The arterial sheath wa s pulled and a TR Band was applied for hemostasis- 15cc air CORONARY ANGIOGRAPHY DOMINANCE: Right Dominant LEFT HEART ASSESSMENT Left Ventricular Ejection Fraction: by LV Gram 65 % Normal LV wall motion Elevated Left Ventricular End Diastolic Pressure LVEDP: 16 mmHg LEFT MAIN: Angiographically normal LEFT ANTERIOR DECENDING ARTERY: PROX LAD: Previously placed stent is patent MID LAD: Mild luminal irregularities CIRCUMFLEX ARTERY: OM 1: Mid - Mild luminal irregularities RIGHT CORONARY ARTERY: Mild luminal irregularities Diffuse: Eccentric: 10-25 % Stenosis PROX RCA: Mild calcification VALVE FINDINGS: Normal Aortic Valve function Normal Mitral Valve function AORTIC ROOT: Angiographically normal COMPLICATIONS No Complications PROCEDURE MEDICATIONS Versed 1 mg IV Fentanyl 50 mcg IV Versed 1 mg IV Fentanyl 50 mcg IV Oxygen: 2 L/min via nasal cannula Heparin diluted in 23cc Heparinized saline. Patient given 10cc IA of this solution. 01/30/2018 08:00: 12 Verapamil 2.5mg, Ntg 100mcgs, 2000 units of Heparin diluted in 23cc Heparinized saline. Patient give n 10cc IA of this solution. 01/30/2018 08:00:12 SUMMARY OF HEMODYNAMIC DATA Time AIR REST ECG 07:40:33 AO 112/73 (90) SA 08:02:38 LV 133/8, 16 08:08:53 LV 130/7, 17 08:08:59 LV 137/10, 19 08:10:07 LVp 135/4, 15 08:10:13 AOp 133/71 (99) 08:10:18 Signed By Mitesh Santillan MD On 01/30/2018 08:41:03 Mitesh Santillan MD
[2018-01-30] MEDS: 0.9% Normal Saline 1,000 ML 75 ML IV (09:16)
[2018-01-30] MEDS: Escitalopram Oxalate 10 MG Tablet PO (09:18)
--- NOTE | 2018-01-30 10:13 | PCM.DC ---
- Discharge Diagnoses Current Active Problems: Current Active and Chronic Problems (Last Updated 10/27/17 @ 11:23 by KRISTIN Gutierrez) Atypical chest pain (Acute) You will use the following diet at home:: No restrictions Your food should be the consistency of: Regular Your liquids should be the consistency of: Regular/Thin Discharge Activity: Return to Normal Activity Weight Bearing Status: Full weight bearing Allergies/Adverse Reactions: Allergies lisinopril Allergy (Verified 01/29/18 12:22) Unknown Medications to take at Discharge Amlodipine Besylate 5 mg PO DAILY 09/16/14 Aspirin [Aspirin, Baby] 81 mg PO QHS 09/16/14 Atorvastatin Calcium [Lipitor] 80 mg PO DAILY 09/16/14 Escitalopram Oxalate [Lexapro] 10 mg PO DAILY 09/16/14 Trazodone HCl 300 mg PO QHS 09/16/14 hydrocodone 5 mg-acetaminophen 325 mg tablet 1 tab PO PRN PRN 7 Days #30 10/27/17 ropinirole 0.5 mg tablet 1 mg PO QHS 90 Days #180 10/27/17 Amiodarone HCl 200 mg PO QDAY 01/29/18 Primary Care Physician: Luis Lyons DO [Primary Care Provider] - Please follow up with your Primary Care Physician in: 1=2 weeks Test Results: Test results from this visit will be discussed in further detail at your follow-up appointment, if applicable.
--- NOTE | 2018-01-30 10:16 | DCINST_ITS ---
- Discharge Diagnoses Current Active Problems: Current Active and Chronic Problems (Last Updated 10/27/17 @ 11:23 by KRISTIN Gutierrez) Atypical chest pain (Acute) You will use the following diet at home:: No restrictions Your food should be the consistency of: Regular Your liquids should be the consistency of: Regular/Thin Discharge Activity: Return to Normal Activity Weight Bearing Status: Full weight bearing Allergies/Adverse Reactions: Allergies lisinopril Allergy (Verified 01/29/18 12:22) Unknown Medications to take at Discharge Amlodipine Besylate 5 mg PO DAILY 09/16/14 Aspirin [Aspirin, Baby] 81 mg PO QHS 09/16/14 Atorvastatin Calcium [Lipitor] 80 mg PO DAILY 09/16/14 Escitalopram Oxalate [Lexapro] 10 mg PO DAILY 09/16/14 Trazodone HCl 300 mg PO QHS 09/16/14 hydrocodone 5 mg-acetaminophen 325 mg tablet 1 tab PO PRN PRN 7 Days #30 ropinirole 0.5 mg tablet 1 mg PO QHS 90 Days #180 10/27/17 Amiodarone HCl 200 mg PO QDAY 01/29/18 Primary Care Physician: Luis Lyons DO [Primary Care Provider] - Please follow up with your Primary Care Physician in: 1=2 weeks Test Results: Test results from this visit will be discussed in further detail at your follow- up appointment, if applicable.
--- NOTE | 2018-01-30 18:20 | PCM.DC.SUM ---
Discharge Date and Diagnosis Date of Admission: 01/29/18 Date of Discharge: 01/30/18 - Primary Discharge Diagnosis #1 chest pain-etiology unclear #2 coronary artery disease #3 hypertension - Secondary Discharge Diagnosis Chronic Problems (Last Updated 10/27/17 @ 11:23 by KRISTIN Gutierrez) Hypertension (Chronic) Hyperlipidemia (Chronic) Mitral valve prolapse (Chronic) Atherosclerotic heart disease of [place] coronary artery without angina pectoris (Chronic) Angina pectoris (Chronic) Postsurgical percutaneous transluminal coronary angioplasty (PTCA) status (Chronic) PTCA with ALYSSA to proximal LAD 2004; PCI-ALYSSA LAD 09/18/14 @ [facility] Encounter for long-term current use of high risk medication (Chronic) Palpitations (Chronic) Ventricular premature depolarization (Chronic) Hospital Course and Treatment Operations: None Procedures: Cardiac catheterization Summary of Care Provided: The patient is a 72 year old F who was seen in the emergency room at [facility] with chief complaint of intermittent chest pain for 2-3 days. This chest pain was precordial in nature and patient had a history of coronary artery disease with stent placement approximately 3 years prior. Workup in the emergency room included an EKG which showed a normal sinus rhythm without evidence of ischemia, troponin was unremarkable, and chest x-ray showed hyperinflation with scattered calcified granulomas. Cardiology was contacted, patient was placed in observation status on PCU and seen in consultation by cardiology who recommended serial enzymes and a cardiac catheterization. Patient's cardiac enzymes remain normal, on 01/30/18, patient underwent a cardiac catheterization which showed no evidence of occlusive coronary disease. The exact etiology of the patient's chest pain was undetermined. On 01/30/18, patient was seen and examined felt to be in stable condition for discharge home Discharge Activity: Return to Normal Activity Weight Bearing Status: Full weight bearing Home Medications: Medications to take at Discharge Amlodipine Besylate 5 mg PO DAILY 09/16/14 Aspirin [Aspirin, Baby] 81 mg PO QHS 09/16/14 Atorvastatin Calcium [Lipitor] 80 mg PO DAILY 09/16/14 Escitalopram Oxalate [Lexapro] 10 mg PO DAILY 09/16/14 Trazodone HCl 300 mg PO QHS 09/16/14 hydrocodone 5 mg-acetaminophen 325 mg tablet 1 tab PO PRN PRN 7 Days #30 10/27/17 ropinirole 0.5 mg tablet 1 mg PO QHS 90 Days #180 10/27/17 Amiodarone HCl 200 mg PO QDAY 01/29/18 Primary Care Physician: Luis Lyons DO [Primary Care Provider] - Please follow up with your Primary Care Physician in: 1=2 weeks Disposition: Home Minutes spent on discharge:: 25 Patient Condition:: Stable Medical Necessity - Tobacco Use Smoking Status: Never smoker Meaningful Use Info Meaningful Use Diagnoses (Choose all that apply): None applicable Code Visit OBSV E&M: 88337 Observation care discharge
--- NOTE | 2018-01-30 18:24 | DS.PCM_ITS ---
Discharge Date and Diagnosis Date of Admission: 01/29/18 Date of Discharge: 01/30/18 - Primary Discharge Diagnosis #1 chest pain-etiology unclear #2 coronary artery disease #3 hypertension - Secondary Discharge Diagnosis Chronic Problems (Last Updated 10/27/17 @ 11:23 by KRISTIN Gutierrez) Hypertension (Chronic) Hyperlipidemia (Chronic) Mitral valve prolapse (Chronic) Atherosclerotic heart disease of [place] coronary artery without angina pectoris (Chronic) Angina pectoris (Chronic) Postsurgical percutaneous transluminal coronary angioplasty (PTCA) status ( Chronic) PTCA with ALYSSA to proximal LAD 2004; PCI-ALYSSA LAD 09/18/14 @ [facility] Encounter for long-term current use of high risk medication (Chronic) Palpitations (Chronic) Ventricular premature depolarization (Chronic) Hospital Course and Treatment Operations: None Procedures: Cardiac catheterization Summary of Care Provided: The patient is a 72 year old F who was seen in the emergency room at [facility] with chief complaint of intermittent chest pain for 2-3 days. This chest pain was precordial in nature and patient had a history of coronary artery disease with stent placement approximately 3 years prior. Workup in the emergency room included an EKG which showed a normal sinus rhythm without evidence of ischemia, troponin was unremarkable, and chest x-ray showed hyperinflation with scattered calcified granulomas. Cardiology was contacted, patient was placed in observation status on PCU and seen in consultation by cardiology who recommended serial enzymes and a cardiac catheterization. Patient's cardiac enzymes remain normal, on 01/30/18, patient underwent a cardiac catheterization which showed no evidence of occlusive coronary disease. The exact etiology of the patient's chest pain was undetermined. On 01/30/18, patient was seen and examined felt to be in stable condition for discharge home Discharge Activity: Return to Normal Activity Weight Bearing Status: Full weight bearing Home Medications: Medications to take at Discharge Amlodipine Besylate 5 mg PO DAILY 09/16/14 Aspirin [Aspirin, Baby] 81 mg PO QHS 09/16/14 Atorvastatin Calcium [Lipitor] 80 mg PO DAILY 09/16/14 Escitalopram Oxalate [Lexapro] 10 mg PO DAILY 09/16/14 Trazodone HCl 300 mg PO QHS 09/16/14 hydrocodone 5 mg-acetaminophen 325 mg tablet 1 tab PO PRN PRN 7 Days #30 ropinirole 0.5 mg tablet 1 mg PO QHS 90 Days #180 10/27/17 Amiodarone HCl 200 mg PO QDAY 01/29/18 Primary Care Physician: Luis Lyons DO [Primary Care Provider] - Please follow up with your Primary Care Physician in: 1=2 weeks Disposition: Home Minutes spent on discharge:: 25 Patient Condition:: Stable Medical Necessity - Tobacco Use Smoking Status: Never smoker Meaningful Use Info Meaningful Use Diagnoses (Choose all that apply): None applicable Code Visit OBSV E&M: 75194 Observation care discharge
== END 2018-01-30 10:15 | disposition home or self-care (01) ==
LOC: ED 13:23 → PCU 15:45
PROVIDERS: Internal Medicine Cardiovascular Disease; Admitting Provider Internal Medicine; Emergency Provider Emergency Medicine; Family Provider Preventive Medicine Occupational Medicine; PCP Preventive Medicine Occupational Medicine; Visit Provider Internal Medicine
DX: R07.89 Other chest pain (principal); I25.10 Atherosclerotic heart disease of native coronary artery without angina pectoris; R06.02 Shortness of breath; R51 Headache; Z95.5 Presence of coronary angioplasty implant and graft; Z79.82 Long term (current) use of aspirin; Z79.899 Other long term (current) drug therapy; E78.5 Hyperlipidemia, unspecified; I10 Essential (primary) hypertension; F41.9 Anxiety disorder, unspecified
CPT/HCPCS: 36415; 71045; 80048; 80061; 84443; 84484; 85025; 85610; 85730; 93005; 93458; 96361; 96372; 96374; 99152; 99153; 99218; 99285; J7030; J7040; Q9967; A4216; C1769; C1894; G0378

== ENCOUNTER → 2018-03-14 09:37 | Outpatient (CLI) | payer MEDICARE, OTHER, SELFPAY | PROVIDERS: Family Provider Preventive Medicine Occupational Medicine; PCP Preventive Medicine Occupational Medicine; Visit Provider Specialist | DX: M16.12 Unilateral primary osteoarthritis, left hip (principal) | CPT/HCPCS: 20610; 77002; J0702 ==

== ENCOUNTER → 2019-07-23 09:22 | Outpatient (CLI) | payer MEDICARE, OTHER, SELFPAY ==
[2018-11-05 09:35] VITALS: BMI 26.6
--- NOTE | 2019-07-23 09:24 | RAD_ITS ---
Procedure: Fluoroscopically guided instillation of anesthetic agent and steroid into the right shoulder. INDICATIONS: Synovitis. CONSENT: The entire procedure, risks, benefits and alternatives (including doing nothing) were discussed with the patient preprocedure. Risks presented included (but were not limited to) infection/abscess/septic joint, bleeding, pain, and reaction to medications. All patient questions were answered satisfactorily. Written consent was obtained, witnessed and placed on the patient''s chart. TECHNIQUE: The patient was taken into the fluoroscopy suite and placed in the supine position with right upper extremity externally rotated. A short time out was observed. Limited and directed fluoroscopy was performed of the right shoulder and an intended percutaneous site identified and marked. The anterior right shoulder soft tissues were then thoroughly prepped and draped in the usual sterile manner. Local superficial and deep anesthesia was obtained utilizing approximately 1.8 cc of 2% lidocaine without epinephrine. Next, a 20-gauge spinal needle was advanced from anterior to posterior approach and tip of the needle placed on bone within the joint capsule. Appropriate needle tip placement was verified by instillation of a small quantity of iodinated contrast. From this needle tip positioning, 4 cc of 1% lidocaine without epinephrine and 2 cc of betamethasone were instilled into the right shoulder joint. All devices were removed, the soft tissues cleansed and a Band-Aid applied. RAD/Inj/Asp Alirio Jt Should/Hip/Knee IMPRESSION: Successful instillation of betamethasone and lidocaine into the right shoulder. Complications: The patient tolerated the procedure well. There was no evident immediate post procedure complication. Electronically Signed: Wm Rubio MD at 11:13 EST , Service support ,
== END ==
PROVIDERS: Family Provider Preventive Medicine Occupational Medicine; PCP Preventive Medicine Occupational Medicine; Referring Provider Specialist; Visit Provider Specialist
DX: M65.811 Other synovitis and tenosynovitis, right shoulder (principal)
CPT/HCPCS: 20610; 77002; J0702

== ENCOUNTER → 2020-01-21 06:44 | Outpatient (CLI) | payer MEDICARE, OTHER, SELFPAY ==
[2020-01-09 10:41] VITALS: BMI 28.1
--- NOTE | 2020-01-21 16:05 | STRESSREP_ITS ---
Stress Test Report Date: 01-21-2020 Procedure: Pharmacologic stress nuclear imaging study Indications: Chest pain; CAD; PCI Consent: Per the patient Procedure: The patient underwent pharmacologic (Regadenoson) evaluation with a peak heart rate of 86 beats per minute (58 %predicted maximal heart rate) and a peak blood pressure of 132/74 mmHg. The baseline ECG demonstrated normal sinus rhythm; low voltage QRS. The peak pharmacologic ECG demonstrated no obvious ECG changes. There were no cardiac dysrhythmias pretest, during pharmacologic infusion, or recovery. There was no complaint of chest discomfort during pharmacologic infusion or recovery. The examination was discontinued secondary to completion of protocol. Impression: 1. Pharmacologic (Regadenoson) evaluation 2. Peak pharmacologic ECG with no obvious ECG changes. 3. There were no cardiac dysrhythmias pretest, during pharmacologic infusion, or recovery. 4. Nuclear images pending Myocardial perfusion imaging study: Technique: The patient was injected with 11.6 millicuries of technetium 99m Cardiolite and subsequently rest SPECT Cardiolite nuclear imaging was obtained in the horizontal long, vertical long, and short axis views. The patient underwent pharmacologic (Regadenoson) evaluation with a peak heart rate of 86 beats per minute (58 % percent predicted maximal heart rate) and a peak blood pressure of 132/74 mmHg. The patient was injected with 32.5 millicuries of technetium 99m Cardiolite and subsequently stress SPECT Cardiolite nuclear imaging was obtained in the horizontal long, vertical long, and short axis views. A gated Cardiolite study at peak stress was obtained. Interpretation: Rest and stress SPECT Cardiolite nuclear imaging status post realignment, normalization, and attenuation correction demonstrate relative uniform tracer uptake and myocardial perfusion appearing within normal limits. There is end systolic thickening and brightening. The gated Cardiolite study demonstrates myocardial thickening and inward wall motion. The reported LVEF is 76 %. Impression: 1. Rest and stress SPECT Cardiolite nuclear imaging demonstrate relative uniform tracer uptake and myocardial perfusion appearing within normal limits. 2. The gated Cardiolite study reports an LVEF of 76 %. This note was generated with [employer] software. It may contain incorrect words, spelling, and punctuation that were not noted in checking the note before signing.
== END ==
PROVIDERS: PCP Preventive Medicine Occupational Medicine; Referring Provider Physician Assistant Medical; Visit Provider Physician Assistant Medical
DX: I25.119 Atherosclerotic heart disease of native coronary artery with unspecified angina pectoris (principal)
CPT/HCPCS: 78452; 93017; A9500; A4216; J2785

== ENCOUNTER → 2020-04-10 10:40 | Outpatient (CLI) | payer MEDICARE, OTHER, SELFPAY ==
[2020-02-25 09:45] VITALS: BMI 27.2
--- NOTE | 2020-04-10 10:41 | RAD_ITS ---
STUDY: X-RAY CHEST REASON FOR EXAM: Female, 74 years old. MCC MEDICATION, CHEST PAIN, MITRAL VALVE PROLAPSE TECHNIQUE: PA and lateral views of the chest. COMPARISON: Comparison is made with prior study dated 01/29/2018. FINDINGS: Hyperinflation. Scattered calcified granulomas. There is no demonstrated pleural abnormality. Normal size heart. Normal mediastinum and bailey. Normal visualized pulmonary arteries. There is atherosclerotic calcification of the aortic arch with tortuosity. There is demineralization of the osseous structures. Normal visualized ribs, clavicles, and shoulders. There is no demonstrated abnormality of the visualized soft tissue structures of the upper abdomen. RAD/Chest PA and Lateral IMPRESSION: Hyperinflation. No acute abnormality is seen. Electronically Signed: Boris Pina, at 13:47 EDT , Service support ,
[2020-04-10 12:36] LABS: AST(SGOT) 14 U/L (15-37); Alanine Aminotransfer ALT/SGPT 32 U/L (13-56); Alkaline Phosphatase 47 U/L (45-117); Bilirubin, Direct 0.17 mg/dL (0.00-0.30); Globulin 3.6 g/dL (2.2-4.2); Protein, Total 7.6 g/dL (6.4-8.2); Thyroid Stim Hormone (TSH) 2.16 uIU/mL (0.358-3.74)
--- NOTE | 2020-04-10 14:29 | PFTCOMP_ITS ---
COMPLETE PULMONARY FUNCTION TEST INTERPRETATION Brief HPI: Patient is a 74 year old female, currently under the care of Dr. Santillan, who presents to [facility] for complete pulmonary function tests secondary to diagnosis of high risk med use. Respiratory therapist reports good effort and reproducible results. Interpretation: Forced expiration spirometry shows no large airways obstructive ventilatory defect with an FEV1 of 127% predicted. There is no significant bronchodilator response by strict ATS criteria. Spirograms are of good quality and plateau normally. The respiratory flow volume loop shows a normal pattern. Lung volumes by body plethysmography show an elevated total lung capacity at 5.71 L, 119% predicted. All other lung volumes are increased symmetrically. Diffusion capacity by carbon monoxide is normal at 106% predicted. The airway resistance is normal. Compared to previous pulmonary function tests from 04/20/2017, there is been normalization of lung volumes with preserved diffusion capacity. Impression: These pulmonary function tests are within normal limits and show significant improvement compared to 2017.
== END ==
PROVIDERS: PCP Preventive Medicine Occupational Medicine; Referring Provider Physician Assistant Medical; Visit Provider Physician Assistant Medical
DX: Z79.899 Other long term (current) drug therapy (principal); I34.1 Nonrheumatic mitral (valve) prolapse; I25.10 Atherosclerotic heart disease of native coronary artery without angina pectoris; E78.00 Pure hypercholesterolemia, unspecified; R00.2 Palpitations
CPT/HCPCS: 36415; 71046; 80076; 84443; 94060; 94726; 94729

== ENCOUNTER 2020-05-25 10:40 | Day surgery (SDC) | payer MEDICARE, OTHER, SELFPAY ==
[2020-02-25 09:45] VITALS: BMI 27.2
[2020-05-25] VITALS (8 sets, daily range): BP systolic 128–151; BP diastolic 66–108; PULSE 65–76; RESP 16–18; TEMP 36.6–36.9; O2SAT 94–100; BMI 25.3
[2020-05-25] MEDS: Lactated Ringers 1,000 ML 100 ML IV (11:30)
[2020-05-25] MEDS: Cefazolin 2 GM in 0.9% Normal Saline 100 ML IV (12:59)
--- NOTE | 2020-05-25 13:20 | RAD_ITS ---
PROCEDURE: Spinal cord stimulator insertion. DATE OF EXAMINATION: 05/25/2020. INDICATION: Female, 74 years old. Back pain. FLUOROSCOPY TIME (if supplied): (1 minute and 13 seconds) minutes/seconds. 8 images were obtained intraoperatively. Intraoperative fluoroscopic services provided for spinal cord insertion. The tip of the electrodes is at the T7-T8 level. RAD/Lumbar Spine 2 or 3 Views IMPRESSION: Intraoperative imaging provided for spinal cord stimulator insertion. Electronically Signed: Boris Pina, at 14:46 EST , Service support ,
[2020-05-25] MEDS: Bupivacaine 0.25% 30 ML Vial (13:24)
[2020-05-25] MEDS: Bacitracin 500 UNITS/GM PACKET (14:12)
--- NOTE | 2020-05-25 15:14 | PCM.OPRPT ---
Report of Operation Date of Procedure: 05/25/20 Description of Surgical Findings:: Pre-Operative Diagnosis: Lumbosacral radiculopathy, lumbosacral degenerative disc disease, lumbosacral spinal stenosis Post-Operative Diagnosis: Lumbosacral radiculopathy, lumbosacral degenerative disc disease, lumbosacral spinal stenosis Surgery/Procedure Performed:: 1. Spinal cord stimulator thoracolumbar leads placement x2 #2 spinal cord stimulator Medtronic intellus generator placement #3 spinal cord stimulator generator pocket creation at the right gluteal region #4 spinal cord stimulator simple programming, 5-intraoperative fluoroscopic interpretation Description of Surgical Findings:: PROCEDURES: 1. Spinal cord stimulator thoracolumbar leads placement x2 #2 spinal cord stimulator Medtronic intellus generator placement #3 spinal cord stimulator generator pocket creation at the right gluteal region #4 spinal cord stimulator simple programming 5-intraoperative fluoroscopic interpretation PREOPERATIVE DIAGNOSES: Lumbosacral radiculopathy, lumbosacral degenerative disc disease, lumbosacral spinal stenosis POSTOPERATIVE DIAGNOSES: Lumbosacral radiculopathy, lumbosacral degenerative disc disease, lumbosacral spinal stenosis ANESTHESIA: MAC COMPLICATIONS: None BLOOD LOSS: Minimal <25 CC Implanted device: Spinal cord stimulator lead [id number] lot number [id number], lead #2 lot number [id number], Medtronic spinal cord stimulator generator intellus serial number [id number] PROCEDURE IN DETAIL: History and physical today was reviewed. Risks and benefits of procedure explained. The patient understood, agreed to procedure, informed consent was obtained. IV inserted per routine protocol. The patient was taken to the operating room, placed in the prone position with a pillow positioned underneath the abdomen. A 2 g of Ancef IV piggyback was infused per anesthesia. The lower back and right gluteal area was prepped and draped in a sterile fashion using iodine x3. The C-arm was brought in position for AP view at the L1-2 vertebral bodies under direct visualization with fluoroscopy on a true AP view the L1-2 interlaminar space was identified skin and subcutaneous tissue and size approximately 10 cc of a mix of 2% lidocaine and 0.25% Marcaine using a 25-gauge regular needle followed by a 25-gauge 3 inch spinal needle towards the interlaminar space at L1-2, the skin and subcutaneous tissue were then incised using an 11-gauge blade was then taken down to the skin and subcutaneous tissue using a 14-gauge 3.5 inch Touhy needle provided by the [employer] kit the needle was passed through the skin towards the interlaminar space at L1-2 and a paramedian approach the needle was then advanced under direct visualization fluoroscopy towards the interlaminar space at L1-2 [id number] technique was then carried to air towards the interlaminar space at L1-2 once the tip of the needle was in the epidural space and loss of resistance was encountered to air and after confirmation of AP as well as oblique view of the spinal cord stimulator lead was then advanced under direct visualization fluoroscopy to be at the tip of the lead at T8 and the bottom of the lead around mid T10 after confirmation of AP as well as lateral view to confirm correct placement of the lead in the posterior compartment of the epidural space the previous procedure was then repeated to a level above at L2-3 interlaminar space the second lead was then inserted under direct visualization with fluoroscopy to be at the mid T8 and upper T11 area to the right of the previous lead, the leads were were then connected to the external neurostimulator and patient was then awakened to confirm satisfactory coverage of the painful area once satisfactory coverage was then achieved the stylette of each needle was then removed and the skin and subcutaneous tissue on to the left of the paramedian needles was then anesthetized with a total of 10 cc of the previous mixture of 0.25% Marcaine and 2% lidocaine using a 25-gauge regular needle the incision was then taken down through the skin and subcutaneous tissue towards the fascia making sure hemostasis was then maintained via cautery, the spinal cord stimulator leads were then passed through the above incision and secured using the a wing anchor and sutured down with a 2-0 silk to the fascia at that level the spinal cord stimulator leads were then tunneled via a tunneler provided by the [employer] kit towards the previously incised spinal cord stimulator battery at the right gluteal region skin and subcutaneous tissue were anesthetized with approximately 10 cc of a mix of 2% lidocaine and 0.25% Marcaine using a 25 gauge regular needle, skin and subcutaneous tissue was then taken down with the 11-gauge blade hemostasis was maintained with Bovie and direct pressure the incision was then taken down to the fascia and the battery was then secured with the 2-0 silk sutures that were the spinal cord stimulator leads the upper lead was then marked the new until spinal cord stimulator battery was then provided Via [email or web address] kit the battery was then reattached of the spinal cord stimulator make ensure that the top lead is attached to the top position from 0-7 electrodes and the bottom from 8-15 electrodes once impedance was then checked to be in the proper average range the intellus battery was then inserted into the pocket and impedance with when checked again the pocket was then inspected to confirm hemostasis in place, the intellus battery was then secured to the fascia using a 2-0 silk to the upper eyes of the battery confirming an upward writing of the intellus facing posterior, once complete confirmation the battery was then placed in the position and the the mid paramedian and the gluteal incisions were then closed primarily through a 3-0 Vicryl in a interrupted fashion followed by a 4-0 chromic to the skin, hemostasis was then maintained during the procedure the skin was then covered with a Steri-Strips and bacitracin patient was then returned into the supine position in a stable condition and returned to recovery in a stable condition patient experienced no signs or symptoms of intrathecal or intravascular injection patient experienced no paresthesia the procedure was completed without any apparent difficulty any complication the patient appeared to tolerate well, motor as well as sensory exam was unchanged from prior to the procedure. ESTIMATED BLOOD LOSS: Minimal less than 25 mL ASSESSMENT AND PLAN: This is a 74-year-old female with lumbosacral radiculopathy lumbosacral degenerative disc disease lumbosacral spinal stenosis,, status post 1. Spinal cord stimulator thoracolumbar leads placement x2 #2 spinal cord stimulator Medtronic intellus generator placement #3 spinal cord stimulator generator pocket creation at the right gluteal region #4 spinal cord stimulator simple programming, 5-intraoperative fluoroscopic interpretation patient will continue her current medications a prescription was provided to the patient for Keflex 500 mg 1 p.o. every 8 hours for 7 days postop instruction were given in writing to the patient as well as verbally and in writing to her . the patient will follow approximately 1 week for reevaluation.
[2020-05-25] MEDS: oxyCODONE 5 MG Tablet PO (16:28)
== END 2020-05-25 16:58 | disposition home or self-care (01) ==
LOC: SDC 10:40 → AC 10:42
PROVIDERS: Anesthesiology; PCP Preventive Medicine Occupational Medicine; Referring Provider Anesthesiology Pain Medicine; Visit Provider Anesthesiology Pain Medicine
PROC: (CPT 63685; principal; 2020-05-25 11:55)
DX: M51.17 Intervertebral disc disorders with radiculopathy, lumbosacral region (principal); M48.07 Spinal stenosis, lumbosacral region; M51.16 Intervertebral disc disorders with radiculopathy, lumbar region; M48.061 Spinal stenosis, lumbar region without neurogenic claudication; Z11.59 Encounter for screening for other viral diseases; I10 Essential (primary) hypertension; M70.61 Trochanteric bursitis, right hip; M16.0 Bilateral primary osteoarthritis of hip; G25.81 Restless legs syndrome; E78.00 Pure hypercholesterolemia, unspecified; I25.10 Atherosclerotic heart disease of native coronary artery without angina pectoris; M81.0 Age-related osteoporosis without current pathological fracture; Z78.0 Asymptomatic menopausal state; Z87.19 Personal history of other diseases of the digestive system; Z86.718 Personal history of other venous thrombosis and embolism; Z79.891 Long term (current) use of opiate analgesic; Z79.899 Other long term (current) drug therapy
CPT/HCPCS: 01992; 63650 ×2; 63685; 95971; 72100; 76000; 87635; C1778; C1820; C9803; J7120; U0003

== ENCOUNTER 2020-06-01 11:58 | Emergency (ER) | payer MEDICARE, OTHER, SELFPAY ==
[2020-05-25 11:15] VITALS: BMI 25.3
[2020-06-01 11:59] VITALS: BP 119/83; PULSE 83; RESP 20; TEMP 36.6; O2SAT 96; BMI 24.7
--- NOTE | 2020-06-01 12:39 | ED.DCSUM_ITS ---
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 Occasionally gets a little short of breath but that is not new and she denies any change in her breathing in the past week. No chest pain. Some chronic abdominal issues, scheduled to have a colonoscopy later this week, and she has chronic low back pain with sciatica down the right leg that she had a spinal stimulator placed 1 week ago and was scheduled to see Dr. Gordon back again today to have it turned on. When they called her to see how she was doing prior to her appointment, she discussed the symptoms and they referred her to the ER for evaluation and to cancel her appointment. - Past Medical History (1) Nonrheumatic mitral (valve) prolapse Status: Chronic (2) Atherosclerotic heart disease of [place] coronary artery without angina pectoris Status: Chronic (3) Essential hypertension Status: Chronic (4) Nonrheumatic mitral (valve) insufficiency Status: Chronic (5) Pure hypercholesterolemia Status: Chronic Past Medical History - Allergies and Home Meds Allergies/Adverse Reactions: Allergies lisinopril Allergy (Verified 06/01/20 12:36) Unknown sotalol Adverse Reaction (Verified 06/01/20 12:36) Upset Stomach Primary Care Physician: Luis Lyons DO [Primary Care Provider] - Doctors: Evan - PM&R Surgical History: - - Coronary stent Smoking Status: Never smoker Review of Systems General: Reports: Chills, Fever, Malaise. Denies: Sweats Eyes: Denies: Visual changes - bilaterally, Diplopia ENT: Denies: Bilateral ear pain, Rhinorrhea, Sore throat Cardiovascular: Denies: Chest pain, Palpitations Respiratory: Reports: Dyspnea - Chronic mild intermittent unchanged, Cough. Denies: Sputum, Orthopnea Gastrointestinal: Reports: Abdominal pain - Chronic unchanged. Denies: Nausea, Vomiting, Diarrhea, Melena, Hematochezia Genitourinary: Denies: Dysuria, Hematuria, Frequency Musculoskeletal: Reports: Myalgias, Back pain - Chronic unchanged with radiation down the right lower extremity. Denies: Swelling Skin: Denies: Rash, Wounds Neurological: Reports: Headache. Denies: Weakness, Numbness Physical Exam Vital Signs/Narrative: Vital Signs Temp Pulse Resp BP Pulse Ox 06/01/20 11:59 97.8 F 83 20 H 119/83 H 96 Inital Vital Signs reviewed: Yes General: Well nourished, Well developed, No Acute Distress - Well-appearing. Conversive in full sentences. Head: Normocephalic, Atraumatic Eyes: Perrl, EOMI ENT: Moist mucous membranes, No rhinorrhea Neck: Supple, Nontender, No lymphadenopathy, No JVD Cardiovascular: Regular rate, Regular rhythm, No murmurs. Negative for: Tachycardia Respiratory: No distress, CTA bilaterally, Chest nontender Abdomen: Soft, Nontender, Nondistended, Normal bowel sounds Back: Nontender, Normal Inspection. Negative for: CVA tenderness Extremities: Nontender, No edema Skin: Normal color, No rash, No Trauma Neurological: Alert, Oriented x3, Cranial nerves II-XII grossly intact, Normal Strength, Normal Sensation, Normal Gait Psychological: Normal affect, Normal Mood Diagnostic/Tx/Re-eval - Medical Decision Making Vital signs are normal, she has no hypoxemia. I think it is reasonable to obtain a send out Covid swab and advised her to quarantine until the results are back. She understands. Discussed reasons to return. ED Disposition - Plan for ED Patient: Disposition: Home or Assisted Living Diagnosis: Suspected COVID-19 virus infection, Upper respiratory tract infection Instructions: ED URI Viral Referrals: Luis Lyons DO [Primary Care Provider] - As Needed Additional Instructions: You were tested for COVID-19, however it is sent to an offsite laboratory, and will likely take 3-5 days to come back. Reference the pamphlet including with your discharge papers for information on setting up an online portal account to check the results yourself.
[2020-06-01 13:25] VITALS: PULSE 96; RESP 18
== END 2020-06-01 13:24 | disposition home or self-care (01) ==
PROVIDERS: Emergency Provider Emergency Medicine; PCP Preventive Medicine Occupational Medicine
DX: U07.1 COVID-19 (principal); J06.9 Acute upper respiratory infection, unspecified; I10 Essential (primary) hypertension; I34.0 Nonrheumatic mitral (valve) insufficiency; I34.1 Nonrheumatic mitral (valve) prolapse; I25.10 Atherosclerotic heart disease of native coronary artery without angina pectoris; E78.00 Pure hypercholesterolemia, unspecified; Z95.5 Presence of coronary angioplasty implant and graft; Z79.82 Long term (current) use of aspirin; Z79.899 Other long term (current) drug therapy
CPT/HCPCS: 87635; 99282; U0003

== ENCOUNTER 2020-11-06 06:57 | Day surgery (SDC) | payer MEDICARE, OTHER, SELFPAY ==
[2020-10-23 14:03] VITALS: BMI 24.2
--- NOTE | 2020-10-28 11:25 | RAD_ITS ---
STUDY: X-RAY CHEST REASON FOR EXAM: Female, 75 years old. pre-operative TECHNIQUE: Frontal and lateral views COMPARISON: 04/10/2020 FINDINGS: The lungs are expanded. There are pulmonary granulomas. Normal size heart. Normal mediastinum and bailey. Normal visualized pulmonary arteries. Normal visualized aortic arch and descending thoracic aorta. Stimulator electrodes are noted at the mid thoracic spine. Degenerative vertebral changes. Normal visualized ribs, clavicles, and shoulders. There is no demonstrated abnormality of the visualized soft tissue structures of the upper abdomen. RAD/Chest PA and Lateral IMPRESSION: No acute pulmonary pathology. Bilateral pulmonary granulomas. Electronically Signed: Alexander Box DO at 16:52 EDT Tel [phone], Service support ,
[2020-10-28 11:54] LABS: Absolute Neutrophil Count 3.7 X10^3/uL (2.0-7.7); Basophil# 0.02 X10^3/uL; Basophil% 0.3 % (0-1); Eosinophil# 0.09 X10^3/uL; Eosinophils% 1.4 % (0-5); Hematocrit 42.1 % (37-47); Hemoglobin 13.4 g/dL (12.0-15.0); Lymphocyte % 31.7 % (19-41); Mean Corp Hgb Conc 31.8 g/dL (32-36); Mean Corpuscular Hgb 32.4 pg (27.0-32.0); Mean Corpuscular Volume 101.7 fL (81-99); Mean Platelet Vol. 10.1 fl (6.2-12.0); Monocyte# 0.46 X10^3/uL; Monocyte% 7.3 % (0-10); NRBC Flagged by Analyzer 0 % (0-5); Neutrophil # 3.71 X10^3/uL (2.7-7.7); Platelet Count 267 K/mm3 (150-450); RBC Distribution Width CV 12.9 % (11.6-14.6); RBC Distribution Width SD 48.3 fl (35.1-43.9); Red Blood Count 4.14 M/mm3 (4.2-5.4); White Blood Count 6.3 K/mm3 (4.4-11.0)
[2020-10-28 12:02] LABS: Prothrombin Time (Protime)PT. 12.6 SECONDS (11.7-14.9)
[2020-10-28 12:03] LABS: Partial Thromboplast Time 28.2 Seconds (24.1-36.2)
[2020-10-28 12:35] LABS: Anion Gap 2 (5-15); BUN 17 mg/dL (7-18); BUN/Creat Ratio 26.4 RATIO (10-20); Calcium,Total 8.6 mg/dL (8.5-10.1); Chloride 108 mmol/L (98-107); Creatinine, Serum 0.64 mg/dL (0.55-1.02); EST Glomerular Filtration Rate 96 mL/min (>60); Est Glom Filt Rate - Afr Amer 116 mL/min (>60); Glucose 95 mg/dL (74-106); Potassium 3.7 mmol/L (3.5-5.1); Sodium Level 140 mmol/L (136-145)
[2020-11-05 09:57] VITALS: BMI 24.2
[2020-11-06] VITALS (17 sets, daily range): BP systolic 98–141; BP diastolic 54–102; PULSE 61–77; RESP 16–18; TEMP 36.6–36.8; O2SAT 94–99; BMI 24.1; BMI 24.2
--- NOTE | 2020-11-06 06:00 | HP_ITS ---
HPI HPI History of Present Illness Surgical H&P: Yes Details: This is a 75-year-old white female who presents today for outpatient cardiovascular follow-up of her history of underlying CAD status post previous PCI, mitral valve disorder with mitral valve prolapse, palpitations but secondary to PVCs, hyperlipidemia, and hypertension. She states intermittent chest pain that occurs randomly. This is sharp on the left side of her chest. This is also a heavy feeling. She feel this has been worse since April, when exposed to COVID-19. She has utilized NTG to assist with pain. This has waken her. This does not necessarily occur with activity. This can radiate into left shoulder. She feels this to be happening more frequently. This can be associated with SOB. She denies arm, jaw, or neck discomfort. Her exercise tolerance is stable. She denies symptoms of lightheadedness, dizziness, or near syncope. She denies claudication issues. She denies orthopnea, PND, fever, chills, cough, blood in urine, blood in stool, or myalgia. She states unchanged SOB with activity. She states feeling heart jump out of my chest. She states her palpitations are unchanged. She states recent syncope when walking from bathroom to bedroom. She did not seek medical attention. She states intermittent bilateral lower extremity edema. She states less activity and more fatigue since last office visit. She states fluctuating blood pressure at home, but notes it to be higher than usual lately. 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 Is patient in pain?: No Allergies lisinopril Allergy (Verified 10/23/20 14:00) Unknown sotalol Adverse Reaction (Verified 10/23/20 14:00) Upset Stomach Medications Amlodipine Besylate 5 mg PO DAILY 09/16/14 [History Confirmed 10/23/20] Aspirin [Aspirin, Baby] 81 mg PO QHS 09/16/14 [History Confirmed 10/23/20] Atorvastatin Calcium [Lipitor] 80 mg PO DAILY 09/16/14 [History Confirmed 10/23/20] ropinirole 0.5 mg tablet 1 mg PO QHS 90 Days #180 10/27/17 [History Confirmed 10/23/20] alendronate 70 mg tablet 70 mg PO QWEEK 11/05/18 [History Confirmed 10/23/20] nitroglycerin 0.4 mg sublingual tablet 0.4 mg SUBLINGUAL Q5M PRN #25 tab 01/09/20 [Rx Confirmed 10/23/20] trazodone 300 mg tablet 150 mg PO QHS tab 01/09/20 [History Confirmed 10/23/20] amiodarone 200 mg tablet 200 mg PO QDAY #90 tab 09/15/20 [Rx Confirmed 10/23/20] calcium carbonate 500 mg calcium (1,250 mg) tablet 1,200 mg PO DAILY tablet 10/23/20 [History Confirmed 10/23/20] escitalopram oxalate 10 mg tablet 10 mg PO DAILY 10/23/20 [History Confirmed 10/23/20] gabapentin 100 mg capsule 100 mg PO TID 10/23/20 [History Confirmed 10/23/20] [facility] Medical History (Updated 06/02/20 @ 00:00 by Taylor Bhardwaj) Nonrheumatic mitral (valve) prolapse (Chronic) Presence of stent in coronary artery (Chronic ~09/18/14) Nonrheumatic mitral (valve) insufficiency (Chronic) Pure hypercholesterolemia (Chronic) Essential hypertension (Chronic) Atherosclerotic heart disease of [place] coronary artery without angina pectoris (Chronic) Angina pectoris (Chronic) Palpitations (Chronic) Ventricular premature depolarization (Chronic) Body mass index (bmi) 27.0-27.9, adult (Chronic) Merino's neuroma (Resolved) Hyperlipidemia (Inactive) Hypertension (Inactive) Surgical History (Updated 05/25/20 @ 15:[address] Rasta Summers MD) Presence of coronary angioplasty implant and graft (Chronic ~09/18/14) H/O foot surgery (Resolved) H/O total hip arthroplasty (Resolved) H/O: hysterectomy (Resolved) History of left hip replacement (Resolved) Postsurgical percutaneous transluminal coronary angioplasty (PTCA) status (Inactive) Family History Father CAD (coronary artery disease) Cancer Rheumatoid arthritis Mother Cancer Brother Cancer prostate Social History (Updated 10/26/20 @ 16:31 by Jr Noguera PUBLIC RECORDS OFFICER, PUBLIC RECORDS OFFICER-C) Smoking Status: Never smoker alcohol intake: never substance use type: does not use caffeine: Yes Type: coffee Number of servings: 1 what type of physical activity do you participate in: walking frequency: 3-4 times per week duration: 15-30 minutes/day seatbelt use: always do you feel safe at home: Yes ROS Const Const: Positive for fatigue; negative for weakness, body ache, fever(s) or chills ENT ENT: Negative for dizziness Cardio Chest Pain: Yes Palpitations: Yes Edema: Bilateral Muscle aches with walking: None Resp Respiratory: Positive for SOB with activity; negative for SOB at rest, SOB orthopnea\SOB lying down or paroxysmal nocturnal dyspnea GI GI: Negative nausea, vomiting blood/hematemesis, bright, red blood in stools or black,tarry stools : Negative for hematuria or frequent nighttime urination/ nocturia Musc Musc: Negative for muscle aches/ myalgia Skin Skin: Negative non-healing lesions or rash Neuro Neuro: Positive for syncope; negative for dizziness, lightheadedness, near syncope, orthostatic symptoms or weakness Endo Endo: Positive for fatigue Allergy Allergy/Immunology: Negative for rash Assessment & Plan 1. Atherosclerosis of [place] coronary artery of [place] heart without angina pectoris I25.10 Plan Patient continues to have chest pain. Exact etiology is unclear. There are typical and atypical features in respect to coronary artery disease. Her heart catheterization January 2018 showed patent previous placed stent and minimal coronary artery disease. Her last stress test in December 2019 was negative for ischemia. It will be reviewed with Dr. Santillan in regards to proceeding with heart catheterization to further rule out coronary artery disease component given unknown etiology of chest pain that appears to be occurring more frequently and secondary symptoms such as fatigue, decreased activity level, syncope, shortness of breath, and currently on antianginal/amlodipine therapy. Patient will proceed with heart catheterization to assess further. Orders Orders: Lipid Profile 10/23/20 Liver Profile 10/23/20 2. Presence of stent in coronary artery Z95.5 PTCA/ALYSSA to proximal LAD 2004; PCI-ALYSSA LAD 09/18/14 @ [facility] Plan She will continue current medical therapy which includes amiodarone, amlodipine, and aspirin. Given her history of coronary artery disease, such medications as beta-romeo and ARB are feasible options. Her most recent echocardiogram in 2016 showed a preserved ejection fraction and thus his medications will be considered on an ongoing basis. 3. Nonrheumatic mitral (valve) insufficiency I34.0 Plan Her most recent echocardiogram from October 2016 showed mild?moderate mitral valve insufficiency. Her shortness of breath and palpitations have not worsened since last office visit. This appears stable on exam. She will continue current medical therapy and we will continue to monitor. 4. Essential hypertension I10 Plan Her blood pressure is slightly elevated today in office. This may be contributory source of her chest pain. However, she acknowledged that she might have lower readings at home. This challenges medication adjustment. We will consider adjusting amlodipine therapy or additional agent such as isosorbide or losartan to assist with further based on long-term response/plan 5. Palpitations R00.2 Plan She does not describe this as worsening. She will continue risk factor and lifestyle modification. She will continue amiodarone therapy to assist with PVCs. Plan Detail Other Orders Orders: Lipid Profile 10/23/20 E78.00 Liver Profile 10/23/20 E78.00 Additional Comments Thank you for allowing us to participate in the patients plan of care, if you have any questions please do not hesitate to call. This note was generated using a voice recognition system and there may be incorrect words, spelling or punctuation that were not noted when reviewing the office note prior to saving. Coding Level of Care Code Off vis,est,level 3 Diagnoses Atherosclerosis of [place] coronary artery of [place] heart without angina pectoris I25.10 ??[place] vs. transplanted heart: [place] heart Presence of stent in coronary artery Z95.5 Nonrheumatic mitral (valve) insufficiency I34.0 Essential hypertension I10 Palpitations R00.2 Coding Level of Care Code Off vis,est,level 3 Diagnoses Atherosclerosis of [place] coronary artery of [place] heart without angina pectoris I25.10 ??[place] vs. transplanted heart: [place] heart Presence of stent in coronary artery Z95.5 Nonrheumatic mitral (valve) insufficiency I34.0 Essential hypertension I10 Palpitations R00.2 Supplemental Info Supplemental Information Transthoracic Echocardiogram from 10/31/2016: Interpretation Summary The study was technically difficult. Left ventricular systolic function is normal. The estimated ejection fraction is 60%. The left atrium is mildly enlarged. Mild?moderate (1?2+) mitral valve insufficiency. Trivial tricuspid valve insufficiency. Moderate focal aortic valve thickening. Right ventricular systolic pressure estimated to be 26 mmHg. Stress Test Report Date: 01-21-2020 Procedure: Pharmacologic stress nuclear imaging study Indications: Chest pain; CAD; PCI Consent: Per the patient Procedure: The patient underwent pharmacologic (Regadenoson) evaluation with a peak heart rate of 86 beats per minute (58 %predicted maximal heart rate) and a peak blood pressure of 132/74 mmHg. The baseline ECG demonstrated normal sinus rhythm; low voltage QRS. The peak pharmacologic ECG demonstrated no obvious ECG changes. There were no cardiac dysrhythmias pretest, during pharmacologic infusion, or recovery. There was no complaint of chest discomfort during pharmacologic infusion or recovery. The examination was discontinued secondary to completion of protocol. Impression: 1. Pharmacologic (Regadenoson) evaluation 2. Peak pharmacologic ECG with no obvious ECG changes. 3. There were no cardiac dysrhythmias pretest, during pharmacologic infusion, or recovery. 4. Nuclear images pending Myocardial perfusion imaging study: Technique: The patient was injected with 11.6 millicuries of technetium 99m Cardiolite and subsequently rest SPECT Cardiolite nuclear imaging was obtained in the horizontal long, vertical long, and short axis views. The patient underwent pharmacologic (Regadenoson) evaluation with a peak heart rate of 86 beats per minute (58 % percent predicted maximal heart rate) and a peak blood pressure of 132/74 mmHg. The patient was injected with 32.5 millicuries of technetium 99m Cardiolite and subsequently stress SPECT Cardiolite nuclear imaging was obtained in the horizontal long, vertical long, and short axis views. A gated Cardiolite study at peak stress was obtained. Interpretation: Rest and stress SPECT Cardiolite nuclear imaging status post realignment, normalization, and attenuation correction demonstrate relative uniform tracer uptake and myocardial perfusion appearing within normal limits. There is end systolic thickening and brightening. The gated Cardiolite study demonstrates myocardial thickening and inward wall motion. The reported LVEF is 76 %. Impression: 1. Rest and stress SPECT Cardiolite nuclear imaging demonstrate relative uniform tracer uptake and myocardial perfusion appearing within normal limits. 2. The gated Cardiolite study reports an LVEF of 76 %. CORONARY ANGIOGRAPHY 01/30/2018: DOMINANCE: Right Dominant LEFT HEART ASSESSMENT Left Ventricular Ejection Fraction: by LV Gram 65 % Normal LV wall motion Elevated Left Ventricular End Diastolic Pressure LVEDP: 16 mmHg LEFT MAIN: Angiographically normal LEFT ANTERIOR DECENDING ARTERY: PROX LAD: Previously placed stent is patent MID LAD: Mild luminal irregularities CIRCUMFLEX ARTERY: OM 1: Mid - Mild luminal irregularities RIGHT CORONARY ARTERY: Mild luminal irregularities Diffuse: Eccentric: 10-25 % Stenosis PROX RCA: Mild calcification VALVE FINDINGS: Normal Aortic Valve function Normal Mitral Valve function AORTIC ROOT: Angiographically normal 24-hour Holter monitor from October 2016: Normal sinus rhythm. Minimum heart rate 66 bpm. Maximum heart rate 109 beats minute. Average heart rate 70 bpm. Ventricular ectopy 2.4%. Supraventricular ectopy 0.0%. The patient kept a 24-hour diary and noted fluttering twice which correlated with PVCs. 30-day event monitor from October 2016 showed sinus rhythm with PVCs. Diagnostics Electrocardiogram 02/25/20 Stress Test Nuclear Medicine 01/21/20 Stress Test 01/21/20 Chest X-Ray 04/10/20 Pulmonary Pulmonary Function Test 04/10/20 COVID (Procedure Consent) Procedure Criteria Procedure Criteria: Yes Elective The surgeon/proceduralist and patient have discussed in detail the risk of exposure to and/or potential harm posed by the COVID-19 virus with having a surgery/procedure at this time versus the risk of? delaying the surgery/procedure. It is not possible to know either the risk of delaying the surgery or procedure or chance of getting an infection with perfect accuracy, but a joint decision was made between the patient and the surgeon/proceduralist ?to proceed at this time with the scheduled surgery/procedure as indicated on the consent form. I have re-examined the patient. There are no clinical changes since date of exam.
--- NOTE | 2020-11-06 10:19 | DCINST_ITS ---
- Discharge Diagnoses Current Active Problems: CAD Reason(s) for Visit for Discharge Instructions: CAD. PCI. Worsening Angina. Syncope. For cardiac cath You will use the following diet at home:: Cardiac Your food should be the consistency of: Regular Discharge Activity: May Not Drive - May not drive for 48 hours, May Shower - May shower in 1 day, May Take a Tub Bath - May not take a tub bath for 7 days May resume sexual activity in: 2 weeks Weight Bearing Status: - - Avoid heavy exertional activity for 2 weeks Call your doctor if your incision/area has: Continuous Slow Oozing, Sudden Increased Bleeding, Increased Pain/ Swelling, Increased Redness, Foul Smelling Discharge, Swelling at the incision site Call your doctor if you observe: Fever of 101 or Higher, Shortness of breath, Dizziness, Fainting spells, Chest pain, Increased palpitations (irregular heartbeat), Uncontrolled pain Change Dressing in (Days):: 1 Remove Dressing in (days):: 1 Cleanse incision/area with: Soap & Water Additional Instructions: [facility] to arrange outpatient follow up Allergies/Adverse Reactions: Allergies lisinopril Allergy (Verified 10/23/20 14:00) Unknown sotalol Adverse Reaction (Verified 10/23/20 14:00) Upset Stomach Medications to take at Discharge Amlodipine Besylate 5 mg PO DAILY 09/16/14 Aspirin [Aspirin, Baby] 81 mg PO QHS 09/16/14 Atorvastatin Calcium [Lipitor] 80 mg PO DAILY 09/16/14 ropinirole 0.5 mg tablet 1 mg PO QHS 90 Days #180 10/27/17 alendronate 70 mg tablet 70 mg PO QWEEK 11/05/18 nitroglycerin 0.4 mg sublingual tablet 0.4 mg SUBLINGUAL Q5M PRN #25 tab 01/09/20 trazodone 300 mg tablet 150 mg PO QHS tab 01/09/20 amiodarone 200 mg tablet 200 mg PO QDAY #90 tab 09/15/20 calcium carbonate 500 mg calcium (1,250 mg) tablet 1,200 mg PO DAILY tablet 10/23/20 escitalopram oxalate 10 mg tablet 10 mg PO DAILY 10/23/20 clopidogrel 75 mg tablet 75 mg PO QDAY #30 tablet 10/27/20 Orders to be completed after discharge: Phase II, Outpatient Cardiac Rehab Location: None Selected Primary Care Physician: Luis Lyons DO [Primary Care Provider] - Test Results: Test results from this visit will be discussed in further detail at your follow- up appointment, if applicable. Please Follow Up With: Mitesh Santillan MD When: Follow up to be arrange Proposed Discharge Date: 11/07/20
--- NOTE | 2020-11-06 10:24 | PCM.DC.SUM ---
Discharge Date and Diagnosis Date of Admission: 11/06/20 Date of Discharge: 11/07/20 - Primary Discharge Diagnosis Acute Problems: CAD - Secondary Discharge Diagnosis Chronic Problems: Chronic Problems (Last Reviewed 01/09/20 @ 10:57 by Kristin Aceves PA, PA) Nonrheumatic mitral (valve) prolapse (Chronic) Presence of stent in coronary artery (Chronic ~09/18/14) PTCA/ALYSSA to proximal LAD 2004; PCI-ALYSSA LAD 09/18/14 @ [facility] Nonrheumatic mitral (valve) insufficiency (Chronic) Pure hypercholesterolemia (Chronic) Essential hypertension (Chronic) Atherosclerotic heart disease of [place] coronary artery without angina pectoris (Chronic) Angina pectoris (Chronic) Encounter for long-term current use of high risk medication (Chronic) Palpitations (Chronic) Ventricular premature depolarization (Chronic) Hospital Course and Treatment Operations: None Procedures: Cardiac catheterization, - - Cardiac Intervention Summary of Care Provided: The patient is a 75 year old with a past medical history of underlying CAD status post LAD PCI who presented in the outpatient setting for ongoing concerning chest discomfort and a history of syncope. Her cardiac history was reviewed. Based upon the ongoing concerns it was recommended she have further evaluation with repeat diagnostic cardiac catheterization. This was performed on 11-06-2020. She was noted to have the LAD stent to be patent, however, just distal to the stent she had an angiographically significant eccentric appearing calcified lesion. She subsequently underwent PTCA/ALYSSA under the direction of Dr. Peters. The patient was subsequently evaluated by Dr. Peters on 11-07-2020. He deemed her stable for release home for continued outpatient cardiovascular follow-up. [] Objective: Please see [id number] Peters. - Physical Exam Vitals/I&O's: Weight: 141 lb Body Mass Index (BMI) 24.2 CONCLUSIONS Elevated Left Ventricular End Diastolic Pressure Normal LV size, wall motion,and systolic function LVEF: by LV gram 65 % [place] Multivessel CAD LAD: stent: patent: distal to the stent: eccentric: calcified: 90 % stenosis RECOMMENDATIONS Medical therapy Risk factor modification Referred for immediate PCI DESCRIPTION OF PROCEDURE The patient arrived to the procedure lab. The risks and benefits of the procedure as well as a full description of our services here and current unavailability of surgical backup were fully explained to the patient and/or their significant other prior to the catheterization. The Timeout was completed, verifying the correct patient and procedure. The patient's procedural site was prepped and draped in the usual fashion. Local anesthetic was given subcutaneously to right radial region with Lidocaine 2%. Using a modified Seldinger technique, and ultrasound guidance,arterial access was obtained via the right radial artery, a 6Fr sheath was inserted. Left Coronary Artery selective angiography was performed in multiple views using a 5 Fr. 4.0 [place] catheter. Right Coronary Artery selective angiography was then performed in multiple views using a 5 Fr. 4.0 [place] catheter. Left Ventriculography was performed in BERMEO projection using a 5 Fr. Pigtail catheter. LV to AO pullback pressures were then recorded.The arterial sheath was pulled and a TR Band was applied for hemostasis 15cc air CORONARY ANGIOGRAPHY LEFT HEART ASSESSMENT Left Ventricular Ejection Fraction: by LV Gram 65 % Normal LV wall motion Elevated Left Ventricular End Diastolic Pressure LVEDP: 17 mmHg LEFT MAIN: Angiographically normal LEFT ANTERIOR DESCENDING ARTERY: PROX LAD: Previously placed stent is patent MID LAD: just distal to the stent: eccentric: calcified: 90 % Stenosis CIRCUMFLEX ARTERY: Mild calcification, Mild luminal irregularities RIGHT CORONARY ARTERY: Mild luminal irregularities PROX RCA: Mild calcification DISTAL RCA: 25 % Stenosis AORTIC ROOT: Angiographically normal PCI Cardiac Cath Report PCI Report: Procedure performed; 1. Successful PCI of high-grade eccentric calcified 90% stenosis/mid LAD distal to prior stent With predilatation multiple times using NC balloon 3 x 15 mm followed by placement of drug-eluting stent in synergy MR drug-eluting stent 3 x 16 mm overlap with the prior stent and postdilated using 3 x 15 mm NC balloon and achievement of 0% stenosis post procedure and maintaining MEMO-3 flow in the LAD. 2. Placement of TR band to the right radial artery arteriotomy site. Consent; Risk and benefits of the procedure explained detail to the patient elected to proceed informed consent obtained. Preprocedure diagnosis 75-year-old patient underwent cardiac catheterization by her primary e commerce manager Dr. Saw marin, patient had symptoms of increasing angina with chest pain and syncopal episode She is known to have history of CAD with prior PCI and stent of the proximal/mid LAD Angiographic views were restarted, patient has preserved LV systolic function Left main normal angiographically, left circumflex is no obstructive atherosclerosis, RCA is large dominant with mid nonobstructive atherosclerosis The target lesion involve severe eccentric stenosis distal to the mid LAD stent 90%. With increasing angina and symptoms of chest pain with syncopal episode. Interventional plan and guide catheters, wires and balloon; We used 6 [place] 3.5 XB guide, engaged the left coronary ostium without difficulty, then will proceed with 0.014 run-through extra floppy 180 cm straight wire Then will proceed with the balloon dilatation using 2.5 x 12 mm emerge MR balloon still the lesion is very calcified and difficult to dilate with rupture of the balloon, we change the plan and then will proceed with the placement of another wire 0.014 BMW universal straight 190 cm wire and then will proceed with the using the cutting balloon which was unable to deliver therefore we changed to 2.5 x 50 mm NC Emerge balloon and we are unable to deliver the stent with that and we proceed with another NC Emerge 3 x 15 mm balloon and were able to dilate the stent as well as the lesion still there is eccentric calcification, then we are able to deliver the Synergy drug-eluting stent 3 x 16 with no evidence of dissection or limitation of flow still were able to maintain MEMO-3 flow and were able to reduce the stenosis to 0. Anticoagulation use in this case is heparin is accepted ACT due to the prior stent and overlapping of the stent and the risk of in-stent thrombosis we will start the patient on Integrilin patient was given 2 doses of Integrilin Renal function creatinine is within normal Followed with 2 mcg of Integrilin infusion. Patient was given a total of 300 Plavix in the Furniture Finisher Helper as well as the regular aspirin and will continue on dual antiplatelets with Plavix and aspirin in addition to the rest of the medication atorvastatin and amlodipine and rest of her cardiac medication. Following this a TR band applied to right radial artery arteriotomy site with no complication in the Furniture Finisher Helper Conclusion recommendations; 1 patient will continue medical treatment with dual antiplatelet as a specified Plavix/aspirin 2. Patient will be admitted to progressive care unit overnight. 2. We will follow up with the primary e commerce manager Dr. Santillan as outpatient for continuation of cardiac care. Elodia Peters MD,[facility] Discharge Diet: Low fat/ Low Cholesterol Discharge Activity: May Not Drive - May not drive for 48 hours, May Shower - May shower in 1 day, May Take a Tub Bath - May not take a tub bath for 7 days May resume sexual activity in: 2 weeks Weight Bearing Status: - - Avoid heavy exertional activity for 2 weeks Call your doctor if your incision/area has: Continuous Slow Oozing, Sudden Increased Bleeding, Increased Pain/ Swelling, Increased Redness, Foul Smelling Discharge, Swelling at the incision site Call your doctor if you observe: Fever of 101 or Higher, Shortness of breath, Dizziness, Fainting spells, Chest pain, Increased palpitations (irregular heartbeat), Uncontrolled pain Change Dressing in (Days):: 1 Remove Dressing in (days):: 1 Cleanse incision/area with: Soap & Water Home Medications: Medications to take at Discharge Amlodipine Besylate 5 mg PO DAILY 09/16/14 Aspirin [Aspirin, Baby] 81 mg PO QHS 09/16/14 Atorvastatin Calcium [Lipitor] 80 mg PO DAILY 09/16/14 ropinirole 0.5 mg tablet 1 mg PO QHS 90 Days #180 10/27/17 alendronate 70 mg tablet 70 mg PO QWEEK 11/05/18 nitroglycerin 0.4 mg sublingual tablet 0.4 mg SUBLINGUAL Q5M PRN #25 tab 01/09/20 trazodone 300 mg tablet 150 mg PO QHS tab 01/09/20 amiodarone 200 mg tablet 200 mg PO QDAY #90 tab 09/15/20 calcium carbonate 500 mg calcium (1,250 mg) tablet 1,200 mg PO DAILY tablet 10/23/20 escitalopram oxalate 10 mg tablet 10 mg PO DAILY 10/23/20 clopidogrel 75 mg tablet 75 mg PO QDAY #30 tablet 10/27/20 Other Amb Orders: Phase II, Outpatient Cardiac Rehab Location: None Selected Primary Care Physician: Luis Lyons DO [Primary Care Provider] - Please Follow Up With: Mitesh Santillan MD When: Follow up to be arrange Disposition: Home Minutes spent on discharge:: 45 Patient Condition:: Stable Medical Necessity - Tobacco Use Smoking Status: Never smoker Meaningful Use Info Meaningful Use Diagnoses (Choose all that apply): None applicable
--- NOTE | 2020-11-06 11:00 | EKG12_ITS ---
Test Reason : PCI Blood Pressure : / mmHG Vent. Rate : 060 BPM Atrial Rate : 060 BPM P-R Int : 216 ms QRS Dur : 078 ms QT Int : 446 ms P-R-T Axes : 026 006 060 degrees QTc Int : 446 ms Sinus rhythm with 1st degree A-V block Low Voltage QRS (Limb Leads) Confirmed by RENAY LAGUERRE, ELBERT ([id number]), restaurant expeditor MARIE GARCIA ([id number]) on 11/09/2020 8:50:11 AM Referred By: Elbert Niño Confirmed By:ELBERT NIÑO MD
--- NOTE | 2020-11-06 11:03 | CL.PCI_ITS ---
PCI Cardiac Cath Report PCI Report: Procedure performed; 1. Successful PCI of high-grade eccentric calcified 90% stenosis/mid LAD distal to prior stent With predilatation multiple times using NC balloon 3 x 15 mm followed by placement of drug-eluting stent in synergy MR drug-eluting stent 3 x 16 mm overlap with the prior stent and postdilated using 3 x 15 mm NC balloon and achievement of 0% stenosis post procedure and maintaining MEMO-3 flow in the LAD. 2. Placement of TR band to the right radial artery arteriotomy site. Consent; Risk and benefits of the procedure explained detail to the patient elected to proceed informed consent obtained. Preprocedure diagnosis 75-year-old patient underwent cardiac catheterization by her primary financial planning advisor Dr. Saw marin, patient had symptoms of increasing angina with chest pain and syncopal episode She is known to have history of CAD with prior PCI and stent of the proximal/mid LAD Angiographic views were restarted, patient has preserved LV systolic function Left main normal angiographically, left circumflex is no obstructive atherosclerosis, RCA is large dominant with mid nonobstructive atherosclerosis The target lesion involve severe eccentric stenosis distal to the mid LAD stent 90%. With increasing angina and symptoms of chest pain with syncopal episode. Interventional plan and guide catheters, wires and balloon; We used 6 [place] 3.5 XB guide, engaged the left coronary ostium without difficulty, then will proceed with 0.014 run-through extra floppy 180 cm straight wire Then will proceed with the balloon dilatation using 2.5 x 12 mm emerge MR balloon still the lesion is very calcified and difficult to dilate with rupture of the balloon, we change the plan and then will proceed with the placement of another wire 0.014 BMW universal straight 190 cm wire and then will proceed with the using the cutting balloon which was unable to deliver therefore we changed to 2.5 x 50 mm NC Emerge balloon and we are unable to deliver the stent with that and we proceed with another NC Emerge 3 x 15 mm balloon and were able to dilate the stent as well as the lesion still there is eccentric calcification, then we are able to deliver the Synergy drug-eluting stent 3 x 16 with no evidence of dissection or limitation of flow still were able to maintain MEMO-3 flow and were able to reduce the stenosis to 0. Anticoagulation use in this case is heparin is accepted ACT due to the prior stent and overlapping of the stent and the risk of in-stent thrombosis we will start the patient on Integrilin patient was given 2 doses of Integrilin Renal function creatinine is within normal Followed with 2 mcg of Integrilin infusion. Patient was given a total of 300 Plavix in the Eight Arm Operator as well as the regular aspirin and will continue on dual antiplatelets with Plavix and aspirin in addition to the rest of the medication atorvastatin and amlodipine and rest of her cardiac medication. Following this a TR band applied to right radial artery arteriotomy site with no complication in the Eight Arm Operator Conclusion recommendations; 1 patient will continue medical treatment with dual antiplatelet as a specified Plavix/aspirin 2. Patient will be admitted to progressive care unit overnight. 2. We will follow up with the primary financial planning advisor Dr. Santillan as outpatient for continuation of cardiac care. Elodia Peters MD,FAC,[facility]
[2020-11-06] MEDS: Acetaminophen 325 MG Tablet 650 MG PO ×2 (11:15→18:58)
[2020-11-06 11:22] LABS: Hematocrit 37.4 % (37-47); Hemoglobin 12.2 g/dL (12.0-15.0); Mean Corp Hgb Conc 32.6 g/dL (32-36); Mean Corpuscular Hgb 32.9 pg (27.0-32.0); Mean Corpuscular Volume 100.8 fL (81-99); Mean Platelet Vol. 9.8 fl (6.2-12.0); Platelet Count 255 K/mm3 (150-450); RBC Distribution Width CV 12.6 % (11.6-14.6); RBC Distribution Width SD 47.3 fl (35.1-43.9); Red Blood Count 3.71 M/mm3 (4.2-5.4)
[2020-11-06] MEDS: 0.9% Normal Saline 1,000 ML 75 ML IV ×2 (11:22→21:12)
--- NOTE | 2020-11-06 11:54 | CRPHASE1 ---
Patient Communication Former Patient:: Phase I PHII Cardiac Rehab Discussed with Patient:: Yes Guide to Cardiac Rehab Given to Patient:: Yes Cardiac Rehab Facility Choice List Given to Patient:: Yes Choice Program Other:: Communication Given to LETICIA Romero [employer]:: Elodia Peters Refer Phase II Cardiac Rehab:: Yes Sessions:: 36 sessions - 3 days/wk, 12 weeks Cardiac Rehabilitation Info Cardiac Rehabilitation Program Information: Cardiac Rehabilitation is important for patients like you who are recovering from a heart problem. Cardiac rehabilitation programs are recognized as integral to the continued care of the patient with coronary heart disease. The cardiac rehabilitation program is designed to optimize a patient's physical, psychological, and social functioning. Health memory care program director work in cardiac rehabilitation programs and assist you with getting the treatments you need to get stronger and healthier - like exercise, healthy eating habits, and medications. Cardiac rehabilitation has been show to help people with heart problems live longer and have better life enjoyment than people who do not go to cardiac rehabilitation. Please contact the Cardiac Rehabilitation Program at [facility] at in two weeks if you have not heard from them.
--- NOTE | 2020-11-06 11:55 | CRPH1.INSTRU ---
General Education CAD and cardiac anatomy and function:: Patient communicates acknowledgment, Family communicates acknowledgment Explanation of diagnoses and procedures:: Patient communicates acknowledgment, Family communicates acknowledgment Sign/Symptoms of MS:: Patient communicates acknowledgment, Family communicates acknowledgment Antiplatelet therapy: Patient communicates acknowledgment, Family communicates acknowledgment Proper use of NTG-SL: Patient communicates acknowledgment, Family communicates acknowledgment Emergency procedures and activation of EMS: Patient communicates acknowledgment, Family communicates acknowledgment Compliance of all prescribed medications: Patient communicates acknowledgment, Family communicates acknowledgment Smoking Patient Nicotine/Smoking Risk Factors Are:: Never smoked Dyslipidemia Patient Dyslipidemia Risk Factors Are:: Total Cholesterol, Triglycerides, HDL, LDL Recommendations Include:: Lipid profile provided, Therapeutic Lifestyle Change dietary guidelines Dyslipidemia Response Code:: Patient communicates acknowledgment, Family communicates acknowledgment Overweight/Obesity Patient Overweight/Obesity Risk Factors Are:: BMI Normal [24-29 & > 65 years old] Recommendations Include:: Weight loss of 5-10%, Reduced calorie diet, Exercise 5-7 times/week Overweight/Obesity:: Patient communicates acknowledgment, Family communicates acknowledgment Hypertension Recommendations Include:: Maintain BP <130/85, DASH dietary guidelines, Decrease/maintain normal body weight Hypertension:: Patient communicates acknowledgment, Family communicates acknowledgment Heart Disease Patient Heart Disease Risk Factors Are:: Previous cardiac event Recommendations Include:: Educated family members of their risk, Educated family members of importance of prevention of heart disease Heart Disease Response Code:: Patient communicates acknowledgment, Family communicates acknowledgment Sedentary Patient Sedentary Risk Factors Are:: Lack of regular exercise Recommendations Include:: Aerobic exercise 5-7 times/week for 20-30 minutes continuously, Benefits of regular exercise, Discussed home walking program, Monitored Outpatient Cardiac Rehab Sedentary Response Code:: Patient communicates acknowledgment, Family communicates acknowledgment Stress Patient Stress Risk Factors Are:: Patient denies stress as a risk factor
--- NOTE | 2020-11-06 16:31 | CL.D_ITS ---
Patient Name: JACKIE BAUTISTA Study Date: 11/06/2020 Performing: Mitesh Santillan MD Ht: 64 inches 163 cm : 1945 Wt: 141.3 lbs 64 kg Age: 75 Gender: female BSA: 1.69 PROCEDURE(S) PERFORMED [id number]/LV [id number] GUIDED ACCESS [id number] W OR WO PTCA, SINGLE CORONARY ARTERY CLINICAL PROFILE AND INDICATIONS Indications: Worsening Angina, Suspected CAD Heart Failure: None Stress/Imaging Date: 01/21/2020Stress Test with SPECT MPI: Negative Angina Classification Anginal Classification w/in 2 Weeks: CCS III CAD Presentations: Other: worsening angina and syncope CONCLUSIONS Elevated Left Ventricular End Diastolic Pressure Normal LV size, wall motion,and systolic function LVEF: by LV gram 65 % [place] Multivessel CAD LAD: stent: patent: distal to the stent: eccentric: calcified: 90 % stenosis RECOMMENDATIONS Medical therapy Risk factor modification Referred for immediate PCI DESCRIPTION OF PROCEDURE The patient arrived to the procedure lab. The risks and benefits of the procedure as well as a full d escription of our services here and current unavailability of surgical backup were fully explained to the patient and/or their significant other prior to the catheterization. The Timeout was completed, verifying the correct patient and procedure. The patient's procedural site was prepped and draped in the usual fashion. Local anesthetic was given subcutaneously to right radial region with Lidocaine 2% . Using a modified Seldinger technique, and ultrasound guidance,arterial access was obtained via the right radial artery, a 6Fr sheath was inserted. Left Coronary Artery selective angiography was perfo rmed in multiple views using a 5 Fr. 4.0 [place] catheter. Right Coronary Artery selective angiography was then performed in multiple views using a 5 Fr. 4.0 [place] catheter. Left Ventriculography was perf ormed in BERMEO projection using a 5 Fr. Pigtail catheter. LV to AO pullback pressures were then recorded.The arterial sheath was pulled and a TR Band was applied for hemostasis 15cc air CORONARY ANGIOGRAPHY LEFT HEART ASSESSMENT Left Ventricular Ejection Fraction: by LV Gram 65 % Normal LV wall motion Elevated Left Ventricular End Diastolic Pressure LVEDP: 17 mmHg LEFT MAIN: Angiographically normal LEFT ANTERIOR DESCENDING ARTERY: PROX LAD: Previously placed stent is patent MID LAD: just distal to the stent: eccentric: calcified: 90 % Stenosis CIRCUMFLEX ARTERY: Mild calcification, Mild luminal irregularities RIGHT CORONARY ARTERY: Mild luminal irregularities PROX RCA: Mild calcification DISTAL RCA: 25 % Stenosis AORTIC ROOT: Angiographically normal COMPLICATIONS No Complications PROCEDURE MEDICATIONS Versed 1 mg IV Fentanyl 50 mcg IV Versed 1 mg IV Fentanyl 50 mcg IV Versed 1 mg IV Versed 1 mg IV Oxygen: 2 L/min via nasal cannula Heparin diluted in 23cc Heparinized saline. Patient given 10cc IA of this solution. 11/06/2020 08:42: 42 Heparin 5000 unit(s) IV 11/06/2020 09:24:34 Heparin 3000 unit(s) IV 11/06/2020 10:03:43 Nitro 200 mcg IC 11/06/2020 09:57:42 Plavix 300 mg PO 11/06/2020 09:17:18 Verapamil 2.5mg, Ntg 100mcgs, 2000 units of Heparin diluted in 23cc Heparinized saline. Patient give n 10cc IA of this solution. 11/06/2020 08:42:42 SUMMARY OF HEMODYNAMIC DATA Time AIR REST ECG 07:14:43 AO 133/77 (103) SA 08:45:55 LV 147/4, 19 08:50:32 LV 149/3, 17 08:50:45 LV 149/-12, 14 08:51:40 LVp 150/-15, 14 08:51:49 AOp 146/67 (102) 08:51:54 Signed By Mitesh Santillan MD On 11/06/2020 16:30:31 Mitesh Santillan MD
--- NOTE | 2020-11-06 16:32 | PCM.PN.CARD ---
Subjectve: The patient is status post diagnostic cardiac catheterization. She appears to be resting comfortably. Objective: Vital Signs Temp Pulse Resp BP Pulse Ox 97.8 F 67 18 105/57 L 97 11/06/20 16:00 11/06/20 16:00 11/06/20 16:00 11/06/20 16:00 11/06/20 16:00 Oxygen Delivery Method Room Air Weight: 140 lb 14.006 oz Body Mass Index (BMI) 24.1 Intake and Output for Last 24 Hours 11/04/20 11/05/20 11/06/20 23:59 23:59 23:59 Intake Total 400 / 400 Balance 400 / 400 General: Awake, Alert, Oriented x 3, Cooperative, No Acute Distress HEENT: Atraumatic, Normocephalic, PERRL, EOMI, Sclera Non Icteric Neck: Supple, Good ROM, No JVD Lungs: Clear to auscultation Cardiovascular: Regular Rhythm, Irregular Rhythm Vascular: Normal Radial Pulses Abdomen: Bowel Sounds Present, Soft Extremities: No edema Neurological: No Focal Motor or Sensory Deficit Psych/Mental Status: Appropriate 11/06/20 11:14: WBC 7.0, RBC 3.71 L, Hgb 12.2, Hct 37.4, MCV 100.8 H, MCH 32.9 H, MCHC 32.6, Plt Count 255, MPV 9.8 Rhythm: Sinus rhythm CONCLUSIONS Elevated Left Ventricular End Diastolic Pressure Normal LV size, wall motion,and systolic function LVEF: by LV gram 65 % [place] Multivessel CAD LAD: stent: patent: distal to the stent: eccentric: calcified: 90 % stenosis RECOMMENDATIONS Medical therapy Risk factor modification Referred for immediate PCI DESCRIPTION OF PROCEDURE The patient arrived to the procedure lab. The risks and benefits of the procedure as well as a full description of our services here and current unavailability of surgical backup were fully explained to the patient and/or their significant other prior to the catheterization. The Timeout was completed, verifying the correct patient and procedure. The patient's procedural site was prepped and draped in the usual fashion. Local anesthetic was given subcutaneously to right radial region with Lidocaine 2%. Using a modified Seldinger technique, and ultrasound guidance,arterial access was obtained via the right radial artery, a 6Fr sheath was inserted. Left Coronary Artery selective angiography was performed in multiple views using a 5 Fr. 4.0 [place] catheter. Right Coronary Artery selective angiography was then performed in multiple views using a 5 Fr. 4.0 [place] catheter. Left Ventriculography was performed in BERMEO projection using a 5 Fr. Pig[place] catheter. LV to AO pullback pressures were then recorded.The arterial sheath was pulled and a TR Band was applied for hemostasis 15cc air CORONARY ANGIOGRAPHY LEFT HEART ASSESSMENT Left Ventricular Ejection Fraction: by LV Gram 65 % Normal LV wall motion Elevated Left Ventricular End Diastolic Pressure LVEDP: 17 mmHg LEFT MAIN: Angiographically normal LEFT ANTERIOR DESCENDING ARTERY: PROX LAD: Previously placed stent is patent MID LAD: just distal to the stent: eccentric: calcified: 90 % Stenosis CIRCUMFLEX ARTERY: Mild calcification, Mild luminal irregularities RIGHT CORONARY ARTERY: Mild luminal irregularities PROX RCA: Mild calcification DISTAL RCA: 25 % Stenosis AORTIC ROOT: Angiographically normal Medical Necessity - Tobacco Use Smoking Status: Never smoker Assessment/Plan 1. CAD status post LAD PCI/stent-remote and now status post additional LAD PTCI/stent The patient presented with symptoms and events concerning for her underlying CAD process. She underwent diagnostic cardiac catheterization. Her LAD stent was patent, however, just distal to the stent it appeared she had developed a new angiographically significant calcified eccentric stenosis. She subsequently underwent PTCA/ALYSSA under the direction of Dr. Peters The patient will continue to be monitored. She will continue medical management as deemed appropriate. Hopefully if the patient remains symptomatically and hemodynamically stable she will be able to be released home tomorrow for continued outpatient cardiovascular follow-up. 2. 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 3. PVCs The patient has history of PVCs. She will continue medical management and follow-up. 4. Hyperlipidemia The patient will continue risk factor evaluation and care and medical management/adjustment as needed. 5. Hypertension The patient's blood pressure will be monitored. Her medications can be adjusted accordingly. Comment: The patient's case has been previously discussed and reviewed with the patient, her spouse, and Dr. Peters. This note was generated using a voice recognition system and there may be incorrect words, spelling or punctuation that were not noted when reviewing the office note prior to saving.
[2020-11-06] MEDS: Atorvastatin Calcium 80 MG Tablet PO (21:09)
[2020-11-06] MEDS: traZODone 50 MG Tablet 150 MG PO (21:09)
[2020-11-06] MEDS: Pramipexole Di-HCl 0.25 MG Tablet PO (21:09)
[2020-11-07 02:53] VITALS: PULSE 60
[2020-11-07 03:30] VITALS: BP 129/67; PULSE 69; RESP 16; TEMP 36.6; O2SAT 95
--- NOTE | 2020-11-07 05:55 | EKG12_ITS ---
Test Reason : AM EKG Blood Pressure : / mmHG Vent. Rate : 064 BPM Atrial Rate : 064 BPM P-R Int : 244 ms QRS Dur : 080 ms QT Int : 446 ms P-R-T Axes : 035 026 079 degrees QTc Int : 460 ms Sinus rhythm with 1st degree A-V block Low voltage QRS Nonspecific T wave abnormality Abnormal ECG Confirmed by RENAY LAGUERRE, ELBERT ([id number]), market editor MARIE GARCIA ([id number]) on 11/11/2020 1:10:32 PM Referred By: Elbert Niño Confirmed By:ELBERT NIÑO MD
[2020-11-07 07:00] VITALS: PULSE 75
[2020-11-07 07:10] VITALS: O2SAT 93
[2020-11-07 07:12] LABS: Absolute Lymphocyte Count 1.56 X10^3/uL (0.83-4.51); Absolute Neutrophil Count 5.1 X10^3/uL (2.0-7.7); Basophil# 0.02 X10^3/uL; Basophil% 0.3 % (0-1); Eosinophil# 0.12 X10^3/uL; Eosinophils% 1.6 % (0-5); Hematocrit 35.9 % (37-47); Hemoglobin 11.7 g/dL (12.0-15.0); Lymphocyte # 1.56 X10^3/ul (0.83-4.51); Lymphocyte % 21.1 % (19-41); Mean Corp Hgb Conc 32.6 g/dL (32-36); Mean Corpuscular Hgb 33.2 pg (27.0-32.0); Mean Platelet Vol. 9.9 fl (6.2-12.0); Monocyte# 0.56 X10^3/uL; Monocyte% 7.6 % (0-10); NRBC Flagged by Analyzer 0 % (0-5); Neutrophil # 5.13 X10^3/uL (2.7-7.7); Neutrophil % 69.1 % (47-70); Platelet Count 234 K/mm3 (150-450); RBC Distribution Width SD 48.8 fl (35.1-43.9); Red Blood Count 3.52 M/mm3 (4.2-5.4); White Blood Count 7.4 K/mm3 (4.4-11.0)
[2020-11-07] MEDS: Acetaminophen 325 MG Tablet 650 MG PO (07:24)
[2020-11-07 07:43] LABS: ALB/GLOB Ratio 1.2 RATIO (0.9-2.4); AST(SGOT) 10 U/L (15-37); Alanine Aminotransfer ALT/SGPT 22 U/L (13-56); Albumin, Serum 3.2 g/dL (3.2-5.0); Alkaline Phosphatase 30 U/L (45-117); Anion Gap 4 (5-15); BUN 16 mg/dL (7-18); BUN/Creat Ratio 24.7 RATIO (10-20); Calcium,Total 7.6 mg/dL (8.5-10.1); Chloride 114 mmol/L (98-107); Creatinine, Serum 0.65 mg/dL (0.55-1.02); EST Glomerular Filtration Rate 95 mL/min (>60); Est Glom Filt Rate - Afr Amer 115 mL/min (>60); Estimated Creatinine Clearance 42.62 ml/min; Globulin 2.7 g/dL (2.2-4.2); Glucose 95 mg/dL (74-106); Potassium 3.7 mmol/L (3.5-5.1); Protein, Total 5.9 g/dL (6.4-8.2); Sodium Level 142 mmol/L (136-145)
[2020-11-07 08:10] VITALS: BP 149/77; PULSE 67; RESP 16; TEMP 36.4; O2SAT 98
[2020-11-07] MEDS: amLODIPine 5 MG Tablet PO (08:16)
[2020-11-07] MEDS: Clopidogrel Bisulfate 75 MG Tablet PO (08:17)
[2020-11-07] MEDS: Escitalopram Oxalate 10 MG Tablet PO (08:17)
[2020-11-07] MEDS: Aspirin E.C. 81 MG Tablet PO (08:18)
[2020-11-07] MEDS: Amiodarone 200 MG Tablet PO (08:18)
--- NOTE | 2020-11-07 09:41 | DCINST_ITS ---
Discharge Diet: Low fat/ Low Cholesterol Discharge Activity: May Not Drive - May not drive for 48 hours, May Shower - May shower in 1 day, May Take a Tub Bath - May not take a tub bath for 7 days Return to work on:: 11/19/20 May resume sexual activity in: 2 weeks Weight Bearing Status: - - Avoid heavy exertional activity for 2 weeks Call your doctor if your incision/area has: Continuous Slow Oozing, Sudden Increased Bleeding, Increased Pain/ Swelling, Increased Redness, Foul Smelling Discharge, Swelling at the incision site Call your doctor if you observe: Fever of 101 or Higher, Shortness of breath, Dizziness, Fainting spells, Chest pain, Increased palpitations (irregular heartbeat), Uncontrolled pain Change Dressing in (Days):: 1 Remove Dressing in (days):: 1 Cleanse incision/area with: Soap & Water Allergies/Adverse Reactions: Allergies lisinopril Allergy (Verified 10/23/20 14:00) Unknown sotalol Adverse Reaction (Verified 10/23/20 14:00) Upset Stomach Medications to take at Discharge Amlodipine Besylate 5 mg PO DAILY 09/16/14 Aspirin [Aspirin, Baby] 81 mg PO QHS 09/16/14 Atorvastatin Calcium [Lipitor] 80 mg PO DAILY 09/16/14 ropinirole 0.5 mg tablet 1 mg PO QHS 90 Days #180 10/27/17 alendronate 70 mg tablet 70 mg PO QWEEK 11/05/18 nitroglycerin 0.4 mg sublingual tablet 0.4 mg SUBLINGUAL Q5M PRN #25 tab 01/09/20 trazodone 300 mg tablet 150 mg PO QHS tab 01/09/20 amiodarone 200 mg tablet 200 mg PO QDAY #90 tab 09/15/20 calcium carbonate 500 mg calcium (1,250 mg) tablet 1,200 mg PO DAILY tablet 10/23/20 escitalopram oxalate 10 mg tablet 10 mg PO DAILY 10/23/20 clopidogrel 75 mg tablet 75 mg PO QDAY #30 tablet 10/27/20 Orders to be completed after discharge: Phase II, Outpatient Cardiac Rehab Location: None Selected Primary Care Physician: Luis Lyons DO [Primary Care Provider] - Test Results: Test results from this visit will be discussed in further detail at your follow- up appointment, if applicable. Please Follow Up With: Moodispaw,Mitesh, MD When: Follow up to be arrange Proposed Discharge Date: 11/07/20 Cardiac Rehabilitation Info Cardiac Rehabilitation Program Information: Cardiac Rehabilitation is important for patients like you who are recovering from a heart problem. Cardiac rehabilitation programs are recognized as integral to the continued care of the patient with coronary heart disease. The cardiac rehabilitation program is designed to optimize a patient's physical, psychological, and social functioning. Health disabilities caregiver work in cardiac rehabilitation programs and assist you with getting the treatments you need to get stronger and healthier - like exercise, healthy eating habits, and medications. Cardiac rehabilitation has been show to help people with heart problems live longer and have better life enjoyment than people who do not go to cardiac rehabilitation. Please contact the Cardiac Rehabilitation Program at [facility] at in two weeks if you have not heard from them.
[2020-11-07 10:00] VITALS: BP 149/77; PULSE 67; RESP 16; TEMP 36.4; O2SAT 98
== END 2020-11-07 09:43 | disposition home or self-care (01) ==
LOC: CLSP 06:59 → PCU 10:53
PROVIDERS: Internal Medicine Interventional Cardiology; Nurse Practitioner Family; PCP Preventive Medicine Occupational Medicine; Referring Provider Internal Medicine Cardiovascular Disease; Visit Provider Internal Medicine Cardiovascular Disease
DX: I25.119 Atherosclerotic heart disease of native coronary artery with unspecified angina pectoris (principal); E78.5 Hyperlipidemia, unspecified; I10 Essential (primary) hypertension; I34.0 Nonrheumatic mitral (valve) insufficiency; I34.1 Nonrheumatic mitral (valve) prolapse; I49.3 Ventricular premature depolarization; E78.00 Pure hypercholesterolemia, unspecified; Z95.5 Presence of coronary angioplasty implant and graft; Z79.82 Long term (current) use of aspirin; Z79.02 Long term (current) use of antithrombotics/antiplatelets; Z79.899 Other long term (current) drug therapy
CPT/HCPCS: 36415; 71046; 76937; 80048; 80053; 85025; 85027; 85610; 85730; 92928; 93005; 93458; 94762; 99152; 99153; C1725; J7030; J7040; Q9967; C1769; C1874; C1887; C1894; C9600; J1327

== ENCOUNTER 2021-03-24 06:50 | Day surgery (SDC) | payer MEDICARE, OTHER, SELFPAY ==
[2021-03-02 11:24] VITALS: BMI 26.0
[2021-03-23 08:37] VITALS: BMI 25.0
--- NOTE | 2021-03-23 12:04 | HP.PCM_ITS ---
History and Physical Date of Admission: 03/24/21 [facility] [id number] [place], [place] [id number] OFFICE VISITDate of Service: 03/02/21 MR#:[id number]: JACKIE BAUTISTA [facility] #:[id number]:[id number] Provider: KRISTIN Valero/Sex: 75/F Loc ation:BMS.WHGStatus:Signed HPI HPI History of Present Illness Details: This is a 75-year-old white female who presents today for outpatient cardiovascular follow-up of her history of underlying CAD status post previous PCI (most recent 10/2020), mitral valve disorder with mitral valve prolapse, palpitations but secondary to PVCs, hyperlipidemia, and hypertension. Pt notes that over the last month she has not been feeling well. She notes that this is similar to what she had prior to her heart cath with stenting in October. She felt good after her stent. She has had chest pain that is similar to what she had prior to her stenting. She tells me that she has needed to use nitroglycerin on an as-needed basis however she does not like to do this because it causes headaches. She does not necessarily have any worsening shortness of breath she just does not feel well. She does not have any palpitations. She does not have any lightheadedness dizziness. She does not have any lower extremity edema. She was unable to complete cardiac rehab due to her back pain. 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 Required: No Is patient in pain?: No Allergies lisinopril Allergy (Verified 03/02/21 11:24) Unknown sotalol Adverse Reaction (Verified 03/02/21 11:24) Upset Stomach Medications aspirin 81 mg PO QHS 09/16/14 [History Confirmed 03/02/21] atorvastatin 80 mg PO DAILY 09/16/14 [History Confirmed 03/02/21] ropinirole 0.5 mg tablet 1 mg PO QHS 90 Days #180 10/27/17 [History Confirmed 03/02/21] alendronate 70 mg tablet 70 mg PO QWEEK 11/05/18 [History Confirmed 03/02/21] nitroglycerin 0.4 mg sublingual tablet 0.4 mg SUBLINGUAL Q5M PRN #25 tab 01/09/20 [Rx Confirmed 03/02/21] trazodone 300 mg tablet 150 mg PO QHS tab 01/09/20 [History Confirmed 03/02/21] amiodarone 200 mg tablet 200 mg PO QDAY #90 tab 09/15/20 [Rx Confirmed 03/02/21] calcium carbonate 500 mg calcium (1,250 mg) tablet 1,200 mg PO DAILY tablet 10/23/20 [History Confirmed 03/02/21] clopidogrel 75 mg tablet 75 mg PO QDAY #30 tablet 10/27/20 [Rx Confirmed 03/02/21] hydrocodone-acetaminophen 5-325mg 5mg-325mg 1 tab PO QHS PRN 11/30/20 [History Confirmed 03/02/21] amlodipine 2.5 mg tablet 2.5 mg PO DAILY #30 tab 03/02/21 [Rx Confirmed 03/02/21] valsartan 160 mg tablet 160 mg PO DAILY 03/02/21 [History Confirmed 03/02/21] [facility] Medical History Angina pectoris Atherosclerotic heart disease of [place] coronary artery without angina pectoris Body mass index (bmi) 27.0-27.9, adult Essential hypertension Hyperlipidemia Hypertension Merino's neuroma Nonrheumatic mitral (valve) insufficiency Nonrheumatic mitral (valve) prolapse Palpitations Presence of stent in coronary artery (~11/06/20) Pure hypercholesterolemia Ventricular premature depolarization Surgical History H/O foot surgery H/O total hip arthroplasty H/O: hysterectomy History of left hip replacement Postsurgical percutaneous transluminal coronary angioplasty (PTCA) status Presence of coronary angioplasty implant and graft (~11/06/20) Family History Father CAD (coronary artery disease) Cancer Rheumatoid arthritis Mother Cancer Brother Cancer prostate Social History Smoking Status: Never smoker alcohol intake: never substance use type: does not use caffeine: Yes Type: coffee Number of servings: 1 what type of physical activity do you participate in: walking frequency: 3-4 times per week duration: 15-30 minutes/day seatbelt use: always do you feel safe at home: Yes ROS Const Const: Positive for fatigue, weakness and headache(s); Negative for frequent falls, excessive sweating, weight gain or weight loss Eyes Eyes: Negative for blind spots, loss of peripheral vision, transient loss of vision, blurry vision, change in vision or double vision ENT ENT: Positive for headache(s); Negative for dizziness, tinnitus, Nosebleed/epistaxis or balance problems Cardio Chest Pain: Yes Palpitations: No Edema: None Muscle aches with walking: None Resp Respiratory: Negative for SOB with activity, SOB at rest, SOB orthopnea\SOB lying down or Cough GI GI: Negative nausea, vomiting, heartburn, bloating, vomiting blood/hematemesis, bright, red blood in stools or black,tarry stools : Negative for hematuria Musc Musc: Negative for muscle aches/ myalgia, muscle weakness, joint pain or balance problems Skin Skin: Negative rash or wounds Neuro Neuro: Positive for headache(s) and weakness; Negative for dizziness, lightheadedness, near syncope, syncope, orthostatic symptoms, frequent falls, confusion, memory loss, restless legs, blurry vision or double vision Maikel Hematologic/Lymphatic: Negative for easy bleeding or easy bruising Endo Endo: Positive for fatigue; Negative for cold intolerance, heat intolerance or excessive sweating Psych Psych: Negative for anxiety or depression Allergy Allergy/Immunology: Negative for rash Cardiology Exam Const Appearance: cooperative, healthy appearing, comfortable, no acute distress and well developed Orientation: alert, awake and oriented x3 Head Head: normal to inspection Ears: hearing grossly normal bilaterally Nose: external nose normal Face and Sinus: face symmetric Mouth: oral mucosae normal, lip normal and moist mucous membranes Eyes General: appearance normal, both eyes and all related structures Eyelids: eyelids normal Conjunctivae: conjunctivae normal Pupils: PERRL EOM: EOM intact bilaterally Neck Neck: normal visual inspection and trachea midline; Negative no JVD Carotids: Negative bruit Chest Chest inspection: normal inspection of the chest Auscultation: Bilateral: Clear to Auscultation Cardio Palpation: normal PMI Rate: regular rate Rhythm: regular rhythm Heart sounds: S1 normal and S2 normal; Negative rub, gallop or murmur GI GI: soft, no hepatosplenomegaly and bowel sounds present Neuro General: patient alert, patient awake, patient oriented x3 and CN's II-XI intact bilaterally Extremities Pulses: Normal: Right Posterior Tibial Pulse, Left Posterior Tibial Pulse, Right Radial Pulse and Left Radial Pulse Lower Extremity Edema: None: Bilateral Psych Psychological: normal affect Assessment and Plan Assessment and Plan (1) Angina pectoris: Status: Chronic Orders: Orders: Left Heart Cath/COR/LV Percut 03/02/21 Basic Metabolic Profile (BMP) 03/02/21 Partial Thromboplast Time 03/02/21 Prothrombin Time w/INR 03/02/21 CBC W/Diff, Automated 03/02/21 Plan - Kristin Aceves PA, PA: Patient symptoms are concerning for angina. Did review case with Dr. Santillan. As her symptoms are similar and she recently had stenting would like to pursue a diagnostic heart catheterization to assure that her stent did not restenosis as it has in the past. For her angina hesitant to start her on Imdur as she does complain of headaches with this. Cannot start her on Ranexa due to interaction with trazodone. We will start her on amlodipine. She was advised that if her symptoms are concerning she should go to the em ergency room. Patient Instructions: I will call you with a date and time of your heart cath Nothing to eat or drink after midnight You will need a company driver, if you have a stent you will spend the night In the morning with a sip of water take: amiodarone, ASA, Clopidogrel, valsartan I am starting you on ranexa to help with the chest pain (2) Presence of stent in coronary artery: Status: Chronic Comment: Successful PCI of high-grade eccentric calcified 90% stenosis/mid LAD distal to prior stent...With predilatation multiple times using NC balloon 3 x 15 mm followed by placement of drug-eluting stent in synergy MR drug-eluting stent 3 x 16 mm overlap with the prior stent and postdilated using 3 x 15 mm NC balloon and achievement of 0% stenosis post procedure and maintaining MEMO-3 flow in the LAD per cardiac cath 11/06/20 - PCI-ALYSSA LAD 09/18/14 @ [facility]; PTCA/ALYSSA to proximal LAD 2004 Orders: Orders: 12 Lead EKG performed by BMS 03/02/21 Left Heart Cath/COR/LV Percut 03/02/21 Basic Metabolic Profile (BMP) 03/02/21 Partial Thromboplast Time 03/02/21 Prothrombin Time w/INR 03/02/21 CBC W/Diff, Automated 03/02/21 Monica FOSTER, PA: Patient does have a history of in-stent stenosis. Her symptoms are concerning for this with her recent heart catheterization and stenting that she had. Would like to pursue a diagnostic heart catheterization. Do not feel that a stress test would be reasonable as she had a false negative stress test prior to her heart catheterization. (3) Essential hypertension: Status: Chronic Orders: Orders: Left Heart Cath/COR/LV Percut 03/02/21 Basic Metabolic Profile (BMP) 03/02/21 Partial Thromboplast Time 03/02/21 Prothrombin Time w/INR 03/02/21 CBC W/Diff, Automated 03/02/21 Monica - Kristin FOSTER, PA: Blood pressure is stable however will monitor this closely as I am adding amlodipine for her chest discomfort. (4) Pure hypercholesterolemia: Status: Chronic Orders: Orders: Left Heart Cath/COR/LV Percut 03/02/21 Basic Metabolic Profile (BMP) 03/02/21 Partial Thromboplast Time 03/02/21 Prothrombin Time w/INR 03/02/21 CBC W/Diff, Automated 03/02/21 Monica FOSTER PA: Patient will continue with current dose of statin. (5) Nonrheumatic mitral (valve) insufficiency: Status: Chronic Orders: Orders: Left Heart Cath/COR/LV Percut 03/02/21 Basic Metabolic Profile (BMP) 03/02/21 Partial Thromboplast Time 03/02/21 Prothrombin Time w/INR 03/02/21 CBC W/Diff, Automated 03/02/21 Monica FOSTER PA: Stable, will continue to monitor with echocardiograms as deemed appropriate. Plan Details Other Medications: New: amlodipine 2.5 mg PO DAILY 30 tabs 0RF Other Orders: Orders: 12 Lead EKG performed by BMS 03/02/21 R00.2 Left Heart Cath/COR/LV Percut 03/02/21 I25.10 Partial Thromboplast Time 03/02/21 R07.89 Prothrombin Time w/INR 03/02/21 I49.3 CBC W/Diff, Automated 03/02/21 I49.3 Follow Up: 3 Months (mmm) Coding Level of Care Code Off vis,est,level 4 Diagnoses Angina pectoris I20.9 Presence of stent in coronary artery Z95.5 Essential hypertension I10 Pure hypercholesterolemia E78.00 Nonrheumatic mitral (valve) insufficiency I34.0 Coding Level of Care Code Off vis,est,level 4 Diagnoses Angina pectoris I20.9 Presence of stent in coronary artery Z95.5 Essential hypertension I10 Pure hypercholesterolemia E78.00 Nonrheumatic mitral (valve) insufficiency I34.0 Supplemental Info Supplemental Information Transthoracic echocardiogram: 03-13-2014 Interpretation Summary The estimated ejection fraction is 65 %. Stage 1 diastolic dysfunction. Mild (1+) mitral valve insufficiency. Mild (1+) tricuspid valve insufficiency. Right ventricular systolic pressure estimated to be 29 mmHg. There is no comparison study available. Stress Test Report Date: 01-21-2020 Procedure: Pharmacologic stress nuclear imaging study Indications: Chest pain; CAD; PCI Consent: Per the patient Procedure: The patient underwent pharmacologic (Regadenoson) evaluation with a peak heart rate of 86 beats per minute (58 %predicted maximal heart rate) and a peak blood pressure of 132/74 mmHg. The baseline ECG demonstrated normal sinus rhythm; low voltage QRS. The peak pharmacologic ECG demonstrated no obvious ECG changes. There were no cardiac dysrhythmias pretest, during pharmacologic infusion, or recovery. There was no complaint of chest discomfort during pharmacologic infusion or recovery. The examination was discontinued secondary to completion of protocol. Impression: 1. Pharmacologic (Regadenoson) evaluation 2. Peak pharmacologic ECG with no obvious ECG changes. 3. There were no cardiac dysrhythmias pretest, during pharmacologic infusion, or recovery. 4. Nuclear images pending Myocardial perfusion imaging study: Technique: The patient was injected with 11.6 millicuries of technetium 99m Cardiolite and subsequently rest SPECT Cardiolite nuclear imaging was obtained in the horizontal long, vertical long, and short axis views. The patient underwent pharmacologic (Regadenoson) evaluation with a peak heart rate of 86 beats per minute (58 % percent predicted maximal heart rate) and a peak blood pressure of 132/74 mmHg. The patient was injected with 32.5 millicuries of technetium 99m Cardiolite and subsequently stress SPECT Cardiolite nuclear imaging was obtained in the horizontal long, vertical long, and short axis views. A gated Cardiolite study at peak stress was obtained. Interpretation: Rest and stress SPECT Cardiolite nuclear imaging status post realignment, normalization, and attenuation correction demonstrate relative uniform tracer uptake and myocardial perfusion appearing within normal limits. There is end systolic thickening and brightening. The gated Cardiolite study demonstrates myocardial thickening and inward wall motion. The reported LVEF is 76 %. Impression: 1. Rest and stress SPECT Cardiolite nuclear imaging demonstrate relative uniform tracer uptake and myocardial perfusion appearing within normal limits. 2. The gated Cardiolite study reports an LVEF of 76 %. Cardiac catheterization: 11-06-2020 CONCLUSIONS Elevated Left Ventricular End Diastolic Pressure Normal LV size, wall motion,and systolic function LVEF: by LV gram 65 % [place] Multivessel CAD LAD: stent: patent: distal to the stent: eccentric: calcified: 90 % stenosis RECOMMENDATIONS Medical therapy Risk factor modification Referred for immediate PCI DESCRIPTION OF PROCEDURE The patient arrived to the procedure lab. The risks and benefits of the procedure as well as a full description of our services here and current unavailability of surgical backup were fully explained to the patient and/or their significant other prior to the catheterization. The Timeout was completed, verifying the correct patient and procedure. The patient's procedural site was prepped and draped in the usual fashion. Local anesthetic was given subcutaneously to right radial region with Lidocaine 2%. Using a modified Seldinger technique, and ultrasound guidance,arterial access was obtained via the right radial artery, a 6Fr sheath was inserted. Left Coronary Artery selective angiography was performed in multiple views using a 5 Fr. 4.0 [place] catheter. Right Coronary Artery selective angiography was then performed in multiple views using a 5 Fr. 4.0 [place] catheter. Left Ventriculography was performed in BERMEO projection using a 5 Fr. [place] catheter. LV to AO pullback pressures were then recorded.The arterial sheath was pulled and a TR Band was applied for hemostasis 15cc air CORONARY ANGIOGRAPHY LEFT HEART ASSESSMENT Left Ventricular Ejection Fraction: by LV Gram 65 % Normal LV wall motion Elevated Left Ventricular End Diastolic Pressure LVEDP: 17 mmHg LEFT MAIN: Angiographically normal LEFT ANTERIOR DESCENDING ARTERY: PROX LAD: Previously placed stent is patent MID LAD: just distal to the stent: eccentric: calcified: 90 % Stenosis CIRCUMFLEX ARTERY: Mild calcification, Mild luminal irregularities RIGHT CORONARY ARTERY: Mild luminal irregularities PROX RCA: Mild calcification DISTAL RCA: 25 % Stenosis AORTIC ROOT: Angiographically normal PCI Cardiac Cath Report: 11/06/2020 PCI Report: Procedure performed; 1. Successful PCI of high-grade eccentric calcified 90% stenosis/mid LAD distal to prior stent With predilatation multiple times using NC balloon 3 x 15 mm followed by kerry cement of drug-eluting stent in synergy MR drug-eluting stent 3 x 16 mm overlap with the prior stent and postdilated using 3 x 15 mm NC balloon and achievement of 0% stenosis post procedure and maintaining MEMO-3 flow in the LAD. 2. Placement of TR band to the right radial artery arteriotomy site. Consent; Risk and benefits of the procedure explained detail to the patient elected to proceed informed consent obtained. Preprocedure diagnosis 75-year-old patient underwent cardiac catheterization by her primary indoor sports centre manager Dr. Saw marin, patient had symptoms of increasing angina with chest pain and syncopal episode She is known to have history of CAD with prior PCI and stent of the proximal/mid LAD Angiographic views were restarted, patient has preserved LV systolic function Left main normal angiographically, left circumflex is no obstructive atherosclerosis, RCA is large dominant with mid nonobstructive atherosclerosis The target lesion involve severe eccentric stenosis distal to the mid LAD stent 90%. With increasing angina and symptoms of chest pain with syncopal episode. Interventional plan and guide catheters, wires and balloon; We used 6 [place] 3.5 XB guide, engaged the left coronary ostium without difficulty, then will proceed with 0.014 run-through extra floppy 180 cm straight wire Then will proceed with the balloon dilatation using 2.5 x 12 mm emerge MR balloon still the lesion is very calcified and difficult to dilate with rupture of the balloon, we change the plan and then will proceed with the placement of another wire 0.014 BMW universal straight 190 cm wire and then will proceed with the using the cutting balloon which was unable to deliver therefore we changed to 2.5 x 50 mm NC Emerge balloon and we are unable to deliver the stent with that and we proceed with another NC Emerge 3 x 15 mm balloon and were able to dilate the stent as well as the lesion still there is eccentric calcification, then we are able to deliver the Synergy drug-eluting stent 3 x 16 with no evidence of dissection or limitation of flow still were able to maintain MEMO-3 flow and were able to reduce the stenosis to 0. Anticoagulation use in this case is heparin is accepted ACT due to the prior stent and overlapping of the stent and the risk of in-stent thrombosis we will start the patient on Integrilin patient was given 2 doses of Integrilin Renal function creatinine is within normal Followed with 2 mcg of Integrilin infusion. Patient was given a total of 300 Plavix in the Motor Brakeman as well as the regular aspirin and will continue on dual antiplatelets with Plavix and aspirin in addition to the rest of the medication atorvastatin and amlodipine and rest of her cardiac medication. Following this a TR band applied to right radial artery arteriotomy site with no complication in the Motor Brakeman Conclusion recommendations; 1 patient will continue medical treatment with dual antiplatelet as a specified Plavix/aspirin 2. Patient will be admitted to progressive care unit overnight. 2. We will follow up with the primary indoor sports centre manager Dr. Santillan as outpatient for continuation of cardiac care. Elodia Peters MD,[facility] Labs: No Data to Display Diagnostics: Electrocardiogram Stress Test NM Stress Test Cardiac Catheterization Chest X-Ray Pulmonary: Pulmonary Function Test 03/03/21 0849<Electronically signed by Kristin FOSTER>Date Kristin FOSTER Cosigner Signature:Date (if applicable) CC: Dr. Luis Lyons, DO ~ Assessment & Plan Addt'l Comments I have re-examined the patient. There are no clinical changes since date of exam.
[2021-03-24] VITALS (17 sets, daily range): BP systolic 97–149; BP diastolic 55–101; PULSE 61–85; RESP 16–18; TEMP 36.6–36.7; O2SAT 93–100; BMI 25.0
--- NOTE | 2021-03-24 10:30 | EKG12_ITS ---
Test Reason : MORNING EKG Blood Pressure : / mmHG Vent. Rate : 068 BPM Atrial Rate : 068 BPM P-R Int : 206 ms QRS Dur : 088 ms QT Int : 428 ms P-R-T Axes : 022 010 056 degrees QTc Int : 455 ms Normal sinus rhythm Normal ECG When compared with ECG of 24-MAR-2021 22:08, MANUAL COMPARISON REQUIRED, DATA IS UNCONFIRMED Confirmed by MELVIN LAGUERRE, BRANDON ([id number]), business editor HARVEY PORTER ([id number]) on 03/25/2021 1:02:14 PM Referred By: Mitesh Santillan Confirmed By:KERRY CHARLES MD
--- NOTE | 2021-03-24 10:39 | CRPHASE1 ---
Patient Communication Former Patient:: Phase I PHII Cardiac Rehab Discussed with Patient:: Yes Guide to Cardiac Rehab Given to Patient:: Yes Cardiac Rehab Facility Choice List Given to Patient:: Yes Choice Program [facility] PHII:: Communication Given to CR, Refer to [facility] Technical Service Rep:: Vanessa Rae Phase II Cardiac Rehab:: Yes Sessions:: 36 sessions - 3 days/wk, 12 weeks Cardiac Rehabilitation Info Cardiac Rehabilitation Program Information: Cardiac Rehabilitation is important for patients like you who are recovering from a heart problem. Cardiac rehabilitation programs are recognized as integral to the continued care of the patient with coronary heart disease. The cardiac rehabilitation program is designed to optimize a patient's physical, psychological, and social functioning. Health healthcare account manager work in cardiac rehabilitation programs and assist you with getting the treatments you need to get stronger and healthier - like exercise, healthy eating habits, and medications. Cardiac rehabilitation has been show to help people with heart problems live longer and have better life enjoyment than people who do not go to cardiac rehabilitation. Please contact the Cardiac Rehabilitation Program at [facility] at in two weeks if you have not heard from them.
--- NOTE | 2021-03-24 10:40 | CRPH1.INSTRU ---
General Education CAD and cardiac anatomy and function:: Patient communicates acknowledgment Explanation of diagnoses and procedures:: Patient communicates acknowledgment Sign/Symptoms of [place]:: Patient communicates acknowledgment Antiplatelet therapy: Patient communicates acknowledgment Proper use of NTG-SL: Patient communicates acknowledgment Emergency procedures and activation of EMS: Patient communicates acknowledgment Compliance of all prescribed medications: Patient communicates acknowledgment - Patient previously instructed on 11/06/2020 by CR staff with previous PCI.
--- NOTE | 2021-03-24 11:00 | CL.D_ITS ---
Patient Name: JACKIE BAUTISTA Study Date: 03/24/2021 Performing: Mitesh Santillan MD Ht: 62 inches 157 cm : 1945 Wt: 136.9 lbs 62 kg Age: 75 Gender: female BSA: 1.62 PROCEDURE(S) PERFORMED IC70-YVS/COR/LV [id number], SINGLE CORONARY ARTERY CLINICAL PROFILE AND INDICATIONS Indications: Worsening Angina Heart Failure: None Stress/Imaging Stress/Image Study Performed: No Angina Classification Anginal Classification w/in 2 Weeks: CCS IV CAD Presentations: Unstable angina. CONCLUSIONS Elevated Left Ventricular End Diastolic Pressure Normal LV size, wall motion,and systolic function LVEF: by LV gram 65 % [place] Multivessel CAD RECOMMENDATIONS Risk factor modification Medical therapy Referred for immediate PCI DESCRIPTION OF PROCEDURE The patient arrived to the procedure lab. The risks and benefits of the procedure as well as a full d escription of our services here and current unavailability of surgical backup were fully explained to the patient and/or their significant other prior to the catheterization. The Timeout was completed, verifying the correct patient and procedure. The patient's procedural site was prepped and draped in the usual fashion. Local anesthetic was given subcutaneously to right radial region with Lidocaine 2% . Using a modified Seldinger technique, arterial access was obtained via the right radial artery, a 6 Fr sheath was inserted. Left Coronary Artery selective angiography was performed in multiple views u sing a 5 Fr. 4.0 [place] catheter. Right Coronary Artery selective angiography was then performed in mu ltiple views using a 5 Fr. 4.0 [place] catheter. Left Ventriculography was performed in BERMEO projection using a 5 Fr. Pigtail catheter. LV to AO pullback pressures were then recorded.The arterial sheath was pulled and a TR Band was applied for hemostasis CORONARY ANGIOGRAPHY DOMINANCE: Right Dominant LEFT HEART ASSESSMENT Left Ventricular Ejection Fraction: by LV Gram 65 % Normal LV wall motion Elevated Left Ventricular End Diastolic Pressure LVEDP: 17 mmHg LEFT MAIN: Angiographically normal LEFT ANTERIOR DESCENDING ARTERY: PROX LAD: Previously placed stent has an instent hazy: 75 % restenosis MID LAD: Previously placed stent has an instent eccentric: 25 % restenosis CIRCUMFLEX ARTERY: Mild luminal irregularities RIGHT CORONARY ARTERY: Mild luminal irregularities AORTIC ROOT: Angiographically normal COMPLICATIONS No Complications PROCEDURE MEDICATIONS Versed 1 mg IV Fentanyl 50 mcg IV Fentanyl 50 mcg IV Versed 1 mg IV Versed 1 mg IV Oxygen: 2 L/min via nasal cannula Heparin given IA 03/24/2021 08:24:12 Heparin 4000 unit(s) IV 03/24/2021 09:20:58 Verapamil 2.5mg, Ntg 100mcgs, 3000 units of Heparin given IA 03/24/2021 08:24:12 SUMMARY OF HEMODYNAMIC DATA Time AIR REST ECG 07:10:12 ECG 07:46:04 AO 167/77 (115) SA 08:17:43 LV 154/-15, 12 08:36:34 LV 148/-9, 17 08:36:40 LV 154/-10, 19 08:37:28 LVp 149/-12, 20 08:37:36 AOp 152/68 (107) 08:37:41 AO 154/73 (110) 08:37:44 Signed By Mitesh Santillan MD On 03/24/2021 10:59:34 Mitesh Santillan MD
[2021-03-24] MEDS: 0.9% Normal Saline 1,000 ML 60 ML IV (11:06)
--- NOTE | 2021-03-24 11:57 | CL.I_ITS ---
Patient Name: JACKIE BAUTISTA Study Date: 03/24/2021 Performing: Caty Rae MD Ht: 62 inches 157 cm : 1945 Wt: 136.9 lbs 62 kg Age: 75 Gender: female BSA: 1.62 PROCEDURE(S) PERFORMED [id number], SINGLE CORONARY ARTERY CLINICAL PROFILE AND CO-MORBIDITIES Indications: Worsening Angina Heart Failure: None Stress/Imaging Stress/Image Study Performed: No Angina Classification Anginal Classification w/in 2 Weeks: CCS IV CAD Presentations: Unstable angina. CONCLUSIONS Successful PCI with PTCA to the ISR of proximal LAD RECOMMENDATIONS DESCRIPTION OF PROCEDURE The patient arrived to the procedure lab. The risks and benefits of the procedure as well as a full d escription of our services here and current unavailability of surgical backup were fully explained to the patient and/or their significant other prior to the catheterization. The Timeout was completed, verifying the correct patient and procedure. The patient's procedural site was prepped and draped in the usual fashion. Local anesthetic was given subcutaneously to right radial region with Lidocaine 2% Using a modified Seldinger technique,arterial access was obtained via the right radial artery, a 6Fr sheath was inserted. Left Coronary Artery selective angiography was performed in multiple views usin g a 5 Fr. 4.0 [place] catheter. Right Coronary Artery selective angiography was then performed in multi ple views using a 5 Fr. 4.0 [place] catheter. Left Ventriculography was performed in BERMEO projection usi ng a 5 Fr. Pigtail catheter. LV to AO pullback pressures were then recorded.The images were reviewed and options discussed. A decision was then made to proceed with an Intervention, IVUS o r other adjunct procedure. XB 3.0 Guide catheter was inserted and engaged into the LCA. Angiogram performed pre balloon dila tation. [employer] Guide wire was advanced to the LAD. 3.0 x 12 [place] Balloon catheter was advanced across lesion in the LAD, proximal. PTCA balloon inflated at 10 atms for 20 secs. PTCA balloon inflated at 1 0 atms for 32 secs. PTCA balloon inflated at 6 atms for 10 secs. PTCA balloon inflated at 12 atms for 67 secs. 3.0 x 12 [place] Emerge Balloon catheter was advanced across lesion in the LAD, proximal. PTCA b alloon inflated at 22 atms for 88 secs. Angiogram performed post balloon dilatation. 3.0 X 10 [place] Cutting balloon catheter was advanced to the lesion in the LAD, proximal. 3.0 X 10 [place] Cutti ng balloon catheter was advanced to the lesion in the LAD, proximal. 3.0 [place] Emerge Balloon catheter w as advanced across lesion in the LAD, proximal. PTCA balloon inflated at 12 atms for 8 secs. PTCA bal loon inflated at 20 atms for 11 secs. Angiogram performed post balloon dilatation. PTCA balloon inflated at 12 atms for 8 secs. PTCA balloon inflated at 20 atms for 19 secs. PTCA balloon in flated at 12 atms for 6 secs. PTCA balloon inflated at 18 atms for 14 secs. Angiogram performed post balloon dilatation. 3.0 x 10 [place] Cutting balloon catheter was advanced to the lesion in the LAD , proximal. 3.0 x 10 [place] Cutting balloon catheter was advanced to the lesion in the LAD, proxim al. Angiogram performed post balloon dilatation. The arterial sheath was pulled and a TR Band was a pplied for hemostasis INTERVENTION INFORMATION LESION SITE: LAD (Proximal) Lesion Complexity: High/C, chronic total occlusion: No, lesion at bifurcation: No, thrombus present: No, lesion length: 28 mm, culprit lesion: Yes, Previously treated lesion: Yes, In-stent restenosis: Y es, Timeframe of previous treatment: >2 years, Previously treated with a stent: Yes Stent Type: with stent type unknown Pre Stenosis: 80 % Pre intervention MEMO flow: 3 PROCEDURE: Balloon Angioplasty, Cutting Balloon Angioplasty The lesion was predilated multiple times with initially a compliant balloon and then a noncompliant b alloon and then with a cutting balloon. The proximal part of the prior stent did not fully expand.So we felt that it will be better to treat this lesion with just PTCA and cutting balloon angioplasty wi thout deploying another stent that would also end up being underexpanded increasing the risk of stent thrombosis. If patient has restenosis then she may need CABG. Post Stenosis: 30 % Post intervention MEMO flow: 3 Lesion Devices: Cardinal 6 Fr XB3.0 100cm Guide Catheter Us .014 BMW [place] Straight 190cm [place] [employer] EMERGE MR 3.00x12 BALLOON [place] [employer] [place] EMERGE MR 3.00x12 BALLOON [place] [employer] [place] cutting balloon 3.0x10 COMPLICATIONS No Complications PROCEDURE MEDICATIONS Versed 1 mg IV Fentanyl 50 mcg IV Fentanyl 50 mcg IV Versed 1 mg IV Versed 1 mg IV Oxygen: 2 L/min via nasal cannula Heparin given IA 03/24/2021 08:24:12 Heparin 4000 unit(s) IV 03/24/2021 09:20:58 Verapamil 2.5mg, Ntg 100mcgs, 3000 units of Heparin given IA 03/24/2021 08:24:12 SUMMARY OF HEMODYNAMIC DATA Time AIR REST ECG 07:10:12 ECG 07:46:04 AO 167/77 (115) SA 08:17:43 LV 154/-15, 12 08:36:34 LV 148/-9, 17 08:36:40 LV 154/-10, 19 08:37:28 LVp 149/-12, 20 08:37:36 AOp 152/68 (107) 08:37:41 AO 154/73 (110) 08:37:44 Signed By Caty Rae MD On 03/24/2021 11:56:33 Caty Rae MD
[2021-03-24] MEDS: Acetaminophen 325 MG Tablet 650 MG PO ×2 (12:08→20:07)
--- NOTE | 2021-03-24 12:43 | NURSING ---
VS machine did not go off as programed to obtain pt VS
--- NOTE | 2021-03-24 15:47 | EKG12_ITS ---
Test Reason : CP Blood Pressure : / mmHG Vent. Rate : 062 BPM Atrial Rate : 062 BPM P-R Int : 216 ms QRS Dur : 074 ms QT Int : 430 ms P-R-T Axes : 037 004 081 degrees QTc Int : 436 ms Sinus rhythm with 1st degree A-V block with Premature atrial complexes Low voltage QRS Borderline ECG When compared with ECG of 07-NOV-2020 05:31, Premature atrial complexes are now Present Nonspecific T wave abnormality, improved in Anterior leads Confirmed by MELVIN LAGUERRE, BRANDON ([id number]), news copy editor HARVEY PORTER ([id number]) on 03/25/2021 1:02:48 PM Referred By: Mitesh Santillan Confirmed By:KERRY CHARLES MD
[2021-03-24] MEDS: Nitroglycerin (INPATIENT USE) 0.4 MG TAB.SUBL SL ×4 (16:03→21:52)
--- NOTE | 2021-03-24 17:58 | PCM.PN.CARD ---
Subjective Subjective This is a 75-year-old white female who is now status post diagnostic cardiac catheterization and LAD PTCA/cutting balloon (no stent). Since her procedure earlier this morning she states she had one episode where she felt her chest discomfort. She did undergo evaluation with an ECG that demonstrated no new acute ECG changes. She did receive nitroglycerin sublingual x1 and stated she felt better. She has had no other new acute symptoms. Objective Data Vital Signs: Vital Signs Temp Pulse Resp BP Pulse Ox 97.8 F 65 18 100/61 93 03/24/21 14:00 03/24/21 16:40 03/24/21 14:00 03/24/21 16:40 03/24/21 14:00 Oxygen Delivery Method Room Air Weight: 136 lb 15.994 oz Body Mass Index (BMI) 25.0 Intake & Output: Intake and Output for Last 24 Hours 03/22/21 03/23/21 03/24/21 23:59 23:59 23:59 Intake Total 559 / 559 Balance 559 / 559 Cardiology Labs/Tests Rhythm: Sinus rhythm Cardiac Cath: . .CONCLUSIONS Elevated Left Ventricular End Diastolic Pressure Normal LV size, wall motion,and systolic function LVEF: by LV gram 65 % [place] Multivessel CAD RECOMMENDATIONS Risk factor modification Medical therapy Referred for immediate PCI DESCRIPTION OF PROCEDURE The patient arrived to the procedure lab. The risks and benefits of the procedure as well as a full description of our services here and current unavailability of surgical backup were fully explained to the patient and/or their significant other prior to the catheterization. The Timeout was completed, verifying the correct patient and procedure. The patient's procedural site was prepped and draped in the usual fashion. Local anesthetic was given subcutaneously to right radial region with Lidocaine 2%. Using a modified Seldinger technique, arterial access was obtained via the right radial artery, a 6Fr sheath was inserted. Left Coronary Artery selective angiography was performed in multiple views using a 5 Fr. 4.0 [place] catheter. Right Coronary Artery selective angiography was then performed in multiple views using a 5 Fr. 4.0 [place] catheter. Left Ventriculography was performed in BERMEO projection using a 5 Fr. Pigtail catheter. LV to AO pullback pressures were then recorded.The arterial sheath was pulled and a TR Band was applied for hemostasis CORONARY ANGIOGRAPHY DOMINANCE: Right Dominant LEFT HEART ASSESSMENT Left Ventricular Ejection Fraction: by LV Gram 65 % Normal LV wall motion Elevated Left Ventricular End Diastolic Pressure LVEDP: 17 mmHg LEFT MAIN: Angiographically normal LEFT ANTERIOR DESCENDING ARTERY: PROX LAD: Previously placed stent has an instent hazy: 75 % restenosis MID LAD: Previously placed stent has an instent eccentric: 25 % restenosis CIRCUMFLEX ARTERY: Mild luminal irregularities RIGHT CORONARY ARTERY: Mild luminal irregularities AORTIC ROOT: Angiographically normal PCI: LAD PTCA/cutting balloon (3.0x10 [place] Cutting Balloon)/no stent Physical Exam Const alert, oriented x3 and no apparent distress Orientation / Consciousness: awake HEENT normocephalic, head/scalp atraumatic and hearing grossly normal bilaterally Eyes PERRL, EOMs intact bilaterally and conjunctivae normal Neck full ROM, supple and no JVD Resp clear to auscultation bilaterally Cardio regular rate, regular rhythm, S1 normal heart sound and S2 normal heart sound GI normal to inspection, nondistended, normoactive bowel sounds Extremity no pedal edema Peripheral Pulses: Yes radial pulses present right (No bruit: No hematoma) 2+ Skin no rashes or lesions noted Psych mental status grossly normal Assessment & Plan Assessment/Plan (1) Angina pectoris: PLAN: The patient presented based upon concerns of symptoms of angina pectoris. She underwent reevaluation with diagnostic cardiac catheterization. Based upon the findings she subsequently underwent LAD PTCA/cutting balloon (no stent). She is going to continue medical management. Depending upon her symptoms this may include the addition of nitrates. If she has recurrence of her LAD lesion then, based upon a previous conversation with Dr. Rae, she will need to be considered for CT surgery consultation for possible CABG to the LAD system. At the same time she does need to be considered for further noncardiac evaluation of chest discomfort which could come from a gastrointestinal etiology such as esophageal spasm which would also be relieved with nitrates. (2) Atherosclerotic heart disease of [place] coronary artery without angina pectoris: QUALIFIERS: [place] vs. transplanted heart: [place] heart Qualified Code(s): I25.10 - Atherosclerotic heart disease of [place] coronary artery without angina pectoris PLAN: Again she did undergo evaluation of her CAD status as noted above. She will continue to be monitored. She will continue medical therapy. (3) Presence of stent in coronary artery: PLAN: Her LAD stent was open. There was an element of concern of in-stent restenosis. Thus she underwent PCI/Cutting Balloon angioplasty-no stent. She received what appeared to be a good angiographic result. She is, continue medical management. (4) Pure hypercholesterolemia: PLAN: She should continue risk factor evaluation care as deemed appropriate. (5) Essential hypertension: PLAN: Her blood pressure will be monitored. She will continue medical therapy. Addt'l Comments Of note, she states she was told by her other physicians that she should remain off of amlodipine therapy as they were concerned that she was not tolerating this from a gastrointestinal standpoint. The patient's case was discussed and reviewed with the patient with her spouse present. This note was generated using a voice recognition system and there may be incorrect words, spelling or punctuation that were not noted when reviewing the office note prior to saving.
[2021-03-24] MEDS: traZODone 50 MG Tablet 150 MG PO (21:37)
[2021-03-24] MEDS: Atorvastatin Calcium 80 MG Tablet PO (21:37)
[2021-03-24] MEDS: Pramipexole Di-HCl 0.25 MG Tablet PO (21:37)
--- NOTE | 2021-03-24 21:38 | NURSING ---
pt stated she feels like she is getting the chest heaviness to the center of her chest, rating it a 3/10
--- NOTE | 2021-03-24 22:35 | EKG12_ITS ---
Test Reason : CP ADMIT Blood Pressure : / mmHG Vent. Rate : 060 BPM Atrial Rate : 060 BPM P-R Int : 216 ms QRS Dur : 082 ms QT Int : 462 ms P-R-T Axes : 034 -13 063 degrees QTc Int : 462 ms Sinus rhythm with 1st degree A-V block Otherwise normal ECG When compared with ECG of 07-NOV-2020 05:31, No significant change was found Confirmed by MELVIN LAGUERRE, BRANDON ([id number]), assistant editor HARVEY PORTER ([id number]) on 03/25/2021 1:03:01 PM Referred By: Mitesh Santillan Confirmed By:KERRY CHARLES MD
[2021-03-24] MEDS: Mag Hydrox/Al Hydrox/Simeth 30 ML UDC PO (22:47)
[2021-03-24] MEDS: HYDROcodone Bitartrate/Apap 5/325 Tablet PO (22:50)
[2021-03-25 02:00] VITALS: PULSE 54
[2021-03-25 03:00] VITALS: BP 105/53; RESP 16; TEMP 36.4; O2SAT 96
[2021-03-25 06:50] LABS: Absolute Lymphocyte Count 1.89 X10^3/uL (0.83-4.51); Absolute Neutrophil Count 4.3 X10^3/uL (2.0-7.7); Basophil# 0.02 X10^3/uL; Basophil% 0.3 % (0-1); Eosinophil# 0.11 X10^3/uL; Eosinophils% 1.6 % (0-5); Hematocrit 37.7 % (37-47); Hemoglobin 12.1 g/dL (12.0-15.0); Lymphocyte # 1.89 X10^3/ul (0.83-4.51); Lymphocyte % 27.8 % (19-41); Mean Corp Hgb Conc 32.1 g/dL (32-36); Mean Corpuscular Hgb 32.4 pg (27.0-32.0); Mean Corpuscular Volume 100.8 fL (81-99); Monocyte% 7.4 % (0-10); NRBC Flagged by Analyzer 0 % (0-5); Neutrophil # 4.25 X10^3/uL (2.7-7.7); Neutrophil % 62.6 % (47-70); Platelet Count 239 K/mm3 (150-450); RBC Distribution Width CV 12.8 % (11.6-14.6); RBC Distribution Width SD 47.7 fl (35.1-43.9); Red Blood Count 3.74 M/mm3 (4.2-5.4); White Blood Count 6.8 K/mm3 (4.4-11.0)
[2021-03-25 07:00] VITALS: PULSE 61
[2021-03-25 07:25] VITALS: O2SAT 96
[2021-03-25 07:26] LABS: ALB/GLOB Ratio 1.3 RATIO (0.9-2.4); AST(SGOT) 13 U/L (15-37); Alanine Aminotransfer ALT/SGPT 27 U/L (13-56); Albumin, Serum 3.4 g/dL (3.2-5.0); Alkaline Phosphatase 29 U/L (45-117); Anion Gap 6 (5-15); BUN 17 mg/dL (7-18); BUN/Creat Ratio 30.1 RATIO (10-20); Calcium,Total 8.1 mg/dL (8.5-10.1); Chloride 111 mmol/L (98-107); Creatinine, Serum 0.56 mg/dL (0.55-1.02); EST Glomerular Filtration Rate 111 mL/min (>60); Est Glom Filt Rate - Afr Amer 135 mL/min (>60); Estimated Creatinine Clearance 39.04 ml/min; Globulin 2.7 g/dL (2.2-4.2); Glucose 92 mg/dL (74-106); Potassium 3.8 mmol/L (3.5-5.1); Protein, Total 6.1 g/dL (6.4-8.2); Sodium Level 143 mmol/L (136-145)
--- NOTE | 2021-03-25 08:23 | CT_ITS ---
EXAM: CT ANGIOGRAPHY CHEST WITH INTRAVENOUS CONTRAST : 1945 CLINICAL INDICATION: chest pain TECHNIQUE: Helically acquired angiography images were obtained of the chest with intravenous contrast. This CT exam was performed using one or more of the following dose reduction techniques: automated exposure control, adjustment of the mA and/or kV according to patient size, and/or use of iterative reconstruction technique. This report was created using [employer] Prep report generation technology. MIP reconstructed images were created and reviewed. CONTRAST: IV 100mL Isovue-370 COMPARISON: None. FINDINGS: PULMONARY ARTERIES: Unremarkable. Normal in caliber. No evidence of pulmonary embolism. AORTA: Unremarkable. Normal in caliber. No evidence of dissection. GREAT VESSELS OF AORTIC ARCH: Unremarkable. Normal in caliber. No evidence of dissection. LUNGS AND PLEURAL SPACES: Unremarkable. No mass. No consolidation or edema. No pleural effusion or thickening. No pneumothorax. HEART: Unremarkable. Heart size is normal. No pericardial effusion. No signs of right heart strain, ratio of right ventricle to left ventricle measures less than 1. MEDIASTINUM: Unremarkable. No mediastinal or hilar adenopathy. Esophagus is unremarkable. No hiatal hernia. THYROID: Unremarkable. No thyroid lesions. BONES/JOINTS: Unremarkable. No suspicious lytic or blastic abnormality. CT/CTA Chest W/WO Contrast IMPRESSION: Negative CTA chest. Individualized dose optimization techniques were used for this CT. at 0929 Reported and signed by: Braden Kearney MD Electronically Signed: Braden Kearney MD at 9:28 EDT Tel , Service support ,
[2021-03-25 08:40] VITALS: BP 139/69; PULSE 68; RESP 18; TEMP 36.6; O2SAT 98
[2021-03-25] MEDS: Aspirin 81 MG TAB.CHEW PO (08:45)
[2021-03-25] MEDS: Amiodarone 200 MG Tablet PO (08:45)
[2021-03-25] MEDS: Clopidogrel Bisulfate 75 MG Tablet PO (08:45)
[2021-03-25] MEDS: Losartan Potassium 50 MG Tablet PO (08:45)
[2021-03-25 09:30] VITALS: PULSE 64
[2021-03-25] MEDS: Pantoprazole Sodium 40 MG Tablet PO (09:49)
--- NOTE | 2021-03-25 10:05 | PCM.DC ---
Discharge Instructions Diet Discharge Diet: Low fat / Low cholesterol Activity Discharge Activity: Return to Normal Activity May shower in (days): 1 May resume sexual activity in: 1-2 weeks Lifting Restrictions: Not lift anything greater than 10 pounds for 3 days. Additional Activity Instructions:: No tub baths for 5 days. Dressing / Incision Call your doctor if your incision/area has: Continuous Slow Oozing, Sudden Increased Bleeding, Increased Pain/ Swelling, Increased Redness, Foul Smelling Discharge and Swelling at the incision site Call your doctor if you observe: Fever of 101 or Higher, Shortness of breath and Chest pain Remove Dressing in: 1 day Cleanse incision/area with: Soap & Water Follow Up Care Please Follow Up With: [facility] When: 04/13/2021 at 9:00 AM with Kristin Pacheco Physician Electric Container Tester. Test Results: Test results from this visit will be discussed in further detail at your follow-up appointment, if applicable. Discharge Plan Admission Primary Reason for Your Visit: [facility] Attending Provider: Mitesh Santillan Primary Care Provider: Luis Lyons Instructions Patient Instructions: CAD Discharge Orders/Prescriptions Prescriptions: New pantoprazole 40 mg Tablet,Delayed Release (Dr/Ec) 40 mg PO DAILY Qty: 30 RF: 11 Continued ropinirole 0.5 mg tablet 1 mg PO QHS 90 Days Qty: 180 RF: 0 alendronate 70 mg tablet 70 mg PO QWEEK RF: 0 nitroglycerin 0.4 mg tablet, sublingual 0.4 mg sublingual Q5M PRN (Reason: chest pain) Qty: 25 RF: 3 hydrocodone-acetaminophen 5-325 mg tablet 1 tab PO QHS PRN (Reason: Pain, Moderate) RF: 0 calcium carbonate [Calcium 500] 500 mg calcium (1,250 mg) tablet 1,200 mg PO DAILY RF: 0 clopidogrel [Plavix] 75 mg tablet 75 mg PO QDAY Qty: 30 RF: 11 valsartan 160 mg tablet 160 mg PO DAILY RF: 0 atorvastatin 80 MG tablet 80 mg PO DAILY RF: 0 aspirin 81 MG tablet,chewable 81 mg PO QHS RF: 0 trazodone 300 mg tablet 150 mg PO QHS RF: 0 amiodarone 200 mg tablet 200 mg PO QDAY Qty: 90 RF: 3 Discontinued amlodipine 2.5 mg tablet 2.5 mg PO DAILY Qty: 30 RF: 0 omeprazole 20 mg capsule,delayed release(DR/EC) 20 mg PO DAILY Qty: 90 RF: 3 Referrals / Follow Up: Luis Lyons DO [Primary Care Provider] - Kristin Aceves PA [PHYSICIAN RELINER] - 04/13/21 9:00 am Disposition Disposition (needs filled in before D/C Order can be placed): Home, Self Care
--- NOTE | 2021-03-25 11:08 | DS.PCM_ITS ---
Providers Primary Care Physician: Dr. Luis Lyons DO Reason For Visit: LISINOPRIL,SOTODOL Diagnosis Discharge Diagnosis (1) Angina pectoris: Status: Chronic Code(s): I20.9 - Angina pectoris, unspecified (2) Atherosclerotic heart disease of [place] coronary artery without angina pectoris: Status: Chronic Code(s): I25.10 - Atherosclerotic heart disease of [place] coronary artery without angina pectoris Qualifiers: [place] vs. transplanted heart: [place] heart Qualified Code(s): I25.10 - Atherosclerotic heart disease of [place] coronary artery without angina pectoris (3) Presence of stent in coronary artery: Status: Chronic Code(s): Z95.5 - Presence of coronary angioplasty implant and graft (4) Pure hypercholesterolemia: Status: Chronic Code(s): E78.00 - Pure hypercholesterolemia, unspecified (5) Essential hypertension: Status: Chronic Code(s): I10 - Essential (primary) hypertension Medications at Discharge Home Medications aspirin 81 mg PO QHS 09/16/14 atorvastatin 80 mg PO DAILY 09/16/14 ropinirole 0.5 mg tablet 1 mg PO QHS 90 Days #180 10/27/17 alendronate 70 mg tablet 70 mg PO QWEEK 11/05/18 nitroglycerin 0.4 mg sublingual tablet 0.4 mg SUBLINGUAL Q5M PRN #25 tab 01/09/20 trazodone 300 mg tablet 150 mg PO QHS tab 01/09/20 amiodarone 200 mg tablet 200 mg PO QDAY #90 tab 09/15/20 calcium carbonate 500 mg calcium (1,250 mg) tablet 1,200 mg PO DAILY tablet 0 10/23/20 clopidogrel 75 mg tablet 75 mg PO QDAY #30 tablet 10/27/20 hydrocodone-acetaminophen 5-325mg 5mg-325mg 1 tab PO QHS PRN 11/30/20 valsartan 160 mg tablet 160 mg PO DAILY 03/02/21 pantoprazole 40 mg PO DAILY #30 tab 03/25/21 Hospital Course Procedures Cardiac catheterization and - (Cardiac intervention: PTCA/cutting balloon angioplasty to the LAD in-stent restenosis) Summary of Care Provided Minutes Spent on Discharge: 45 Hospital Course: The patient presented to [facility] based upon concerns of worsening chest discomfort/worsening angina pectoris for reevaluation of her underlying CAD status with diagnostic cardiac catheteriz ation. Her cardiac catheterization was performed. There was concern of an element of LAD in-stent restenosis. She underwent PTCA/cutting balloon angioplasty under the direction of Dr. Rae with good angiographic results. She was monitored in the hospital following that procedure. During her hospitalization she did have, in the supine position, recurrent episodes of her chest discomfort. She was evaluated during those times. She had an ECG follow-up. She had no new acute ECG changes. She was treated with one episode with nitroglycerin sublingual x1 which she thought gave her some improvement. Another episode she did not feel the nitroglycerin sublingual x1 assisted her. She was treated with a GI cocktail. She felt that improved her symptoms and she was able to rest comfortably in sleep. She had follow-up ECG again this morning which demonstrated no acute ECG changes. Based upon her chest discomfort she did undergo further evaluation with a chest CTA to evaluate for any obvious great vessel disease and/or thromboembolic disease-noting she had a history of a remote DVT. This was reported as negative for any great vessel disease or thromboembolic disease or any other acute changes. From a cardiovascular standpoint the patient was noted that if her LAD stent had any concerns of future in-stent restenosis it may no longer be amenable to revascularization therapy from a percutaneous standpoint and she would need to be considered for CABG which may include a DAVID graft to the LAD. She will need to continue cardiovascular risk factor modification medical therapy as deemed appropriate. From a noncardiac standpoint there were concerns that her recurrent symptoms, which she noted predominantly in the supine position, may be related to underlying gastrointestinal and/or esophageal etiologies noting how she improved especially after a GI cocktail. She stated that she has been evaluated with EGD a long time ago and was told she had some evidence of irritation. She was transiently on either an H2 antagonist or PPI. She does not recall the name of the medication she took at the time. At the present time it was felt she could have a trial of a PPI. It was also thought that depending upon her response to medical therapy she should have follow-up with her PCP as well as possible gastroenterology for reassessment of GI related etiologies that may be related to her chest discomfort. Overall was felt the patient could be released home for continued outpatient cardiovascular follow-up. Physical Exam Const alert, oriented x3 and no apparent distress Orientation / Consciousness: awake HEENT normocephalic, head/scalp atraumatic and hearing grossly normal bilaterally Eyes PERRL, EOMs intact bilaterally and conjunctivae normal Neck full ROM, supple and no JVD Resp clear to auscultation bilaterally Cardio regular rate, regular rhythm, S1 normal heart sound and S2 normal heart sound GI normal to inspection, nondistended, normoactive bowel sounds Extremity no pedal edema Peripheral Pulses: Yes radial pulses present right (No bruits: No hematoma) 2+ Skin no rashes or lesions noted Psych mental status grossly normal Weight / BMI Weight Weight: 137 lb 2.04 oz Body Mass Index (BMI) 25.0 ABG / Lab / Microbiology Data Result Diagrams: 03/25/21 06:10 03/25/21 06:10 Laboratory: Laboratory Results - last 24 hr 03/25/21 06:10: WBC 6.8, RBC 3.74 L, Hgb 12.1, Hct 37.7, MCV 100.8 H, MCH 32.4 H , MCHC 32.1, RDW Std Deviation 47.7 H, RDW Coeff of Adeola 12.8, Plt Count 239, MPV 10.0, Immature Gran % (Auto) 0.300, Neut % (Auto) 62.6, Lymph % (Auto) 27.8, [place] % (Auto) 7.4, Eos % (Auto) 1.6, Baso % (Auto) 0.3, Absolute Neuts (auto) 4.3, Absolute Lymphs (auto) 1.89, Nucleated RBC % 0 03/25/21 06:10: Sodium 143, Potassium 3.8, Chloride 111 H, Carbon Dioxide 26.0, Anion Gap 6, BUN 17, Creatinine 0.56, Estim Creat Clear Calc 39.04, Est GFR (MDRD) Af Amer 135, Est GFR (MDRD) Non-Af 111, BUN/Creatinine Ratio 30.1 H, Glucose 92, Calcium 8.1 L, Total Bilirubin 0.50, AST 13 L, ALT 27, Alkaline Phosphatase 29 L, Total Protein 6.1 L, Albumin 3.4, Globulin 2.7, Albumin/Globulin Ratio 1.3 Radiography Diagnostic Testing: Radiology Impression Chest CTA 03/25/21 08:23 IMPRESSION: Negative CTA chest. Individualized dose optimization techniques were used for this CT. at 0929 Reported and signed by: Braden Kearney MD Electronically Signed: Braden Kearney MD at 9:28 EDT Tel , Service support , D/C Instructions Discharge Diet: Low fat / Low cholesterol May shower in (days): 1 May resume sexual activity in: 1-2 weeks Additional Activity Instructions: No tub baths for 5 days. Call your doctor if your incision/area has: Continuous Slow Oozing, Sudden Increased Bleeding, Increased Pain/ Swelling, Increased Redness, Foul Smelling Discharge and Swelling at the incision site Call your doctor if you observe: Fever of 101 or Higher, Shortness of breath and Chest pain Cleanse incision/area with: Soap & Water Please Follow Up With: [facility] When: 04/13/2021 at 9:00 AM with Kristin Pacheco Physician Wire Preparation Machine Tender. Meaningful Use Info Meaningful Use Diagnoses (Choose all that apply): None applicable Discharge Plan Admission Primary Reason for Your Visit: [facility] Attending Provider: Mitesh Santillan Primary Care Provider: Luis Lyons Instructions Patient Instructions: CAD Discharge Orders/Prescriptions Prescriptions: New pantoprazole 40 mg Tablet,Delayed Release (Dr/Ec) 40 mg PO DAILY Qty: 30 RF: 11 Continued ropinirole 0.5 mg tablet 1 mg PO QHS 90 Days Qty: 180 RF: 0 alendronate 70 mg tablet 70 mg PO QWEEK RF: 0 nitroglycerin 0.4 mg tablet, sublingual 0.4 mg sublingual Q5M PRN (Reason: chest pain) Qty: 25 RF: 3 hydrocodone-acetaminophen 5-325 mg tablet 1 tab PO QHS PRN (Reason: Pain, Moderate) RF: 0 calcium carbonate [Calcium 500] 500 mg calcium (1,250 mg) tablet 1,200 mg PO DAILY RF: 0 clopidogrel [Plavix] 75 mg tablet 75 mg PO QDAY Qty: 30 RF: 11 valsartan 160 mg tablet 160 mg PO DAILY RF: 0 atorvastatin 80 MG tablet 80 mg PO DAILY RF: 0 aspirin 81 MG tablet,chewable 81 mg PO QHS RF: 0 trazodone 300 mg tablet 150 mg PO QHS RF: 0 amiodarone 200 mg tablet 200 mg PO QDAY Qty: 90 RF: 3 Discontinued amlodipine 2.5 mg tablet 2.5 mg PO DAILY Qty: 30 RF: 0 omeprazole 20 mg capsule,delayed release(DR/EC) 20 mg PO DAILY Qty: 90 RF: 3 Referrals / Follow Up: Luis Lyons DO [Primary Care Provider] - Kristin Aceves PA [PHYSICIAN LACE AND TEXTILES RESTORER] - 04/13/21 9:00 am Disposition Disposition (needs filled in before D/C Order can be placed): Home, Self Care
== END 2021-03-25 12:42 | disposition home or self-care (01) ==
LOC: CLSP 06:53 → PCU 12:10
PROVIDERS: Specialist; PCP Preventive Medicine Occupational Medicine; Referring Provider Internal Medicine Cardiovascular Disease; Visit Provider Internal Medicine Cardiovascular Disease
DX: I25.119 Atherosclerotic heart disease of native coronary artery with unspecified angina pectoris (principal); I10 Essential (primary) hypertension; E78.5 Hyperlipidemia, unspecified; I34.1 Nonrheumatic mitral (valve) prolapse; E78.00 Pure hypercholesterolemia, unspecified; G57.60 Lesion of plantar nerve, unspecified lower limb; Z95.5 Presence of coronary angioplasty implant and graft; Z79.82 Long term (current) use of aspirin; Z79.02 Long term (current) use of antithrombotics/antiplatelets; Z79.899 Other long term (current) drug therapy
CPT/HCPCS: 36415; 71275; 80053; 80299; 85025; 92920; 93005; 93458; 99152; 99153; C1725; J0153; J7030; J7040; Q9967; A4216; C1769; C1887; C1894; J2405

== ENCOUNTER 2021-09-03 06:07 | Outpatient (CLI) | payer MEDICARE, OTHER, SELFPAY ==
--- NOTE | 2021-09-03 08:15 | STRESSREP_ITS ---
Stress Test Report Date: 09-03-2021 Procedure: Pharmacologic stress nuclear imaging study Indications: Chest pain; CAD; PCI Consent: Per the patient Procedure: The patient underwent pharmacologic (Regadenoson 0.4mg ) evaluation with a peak heart rate of 103 beats per minute (71%predicted maximal heart rate) and a peak blood pressure of 148/82 mmHg. The baseline ECG demonstrated sinus rhythm. The peak pharmacologic ECG demonstrated no obvious ECG changes. There were no cardiac dysrhythmias pretest, during pharmacologic infusion, or recovery. There was no complaint of chest discomfort during pharmacologic infusion or recovery. The examination was discontinued secondary to completion of protocol. Impression: 1. Pharmacologic (Regadenoson) evaluation 2. Peak pharmacologic ECG with no obvious ECG change. 3. There were no cardiac dysrhythmias pretest, during pharmacologic infusion, or recovery. 4. Nuclear images pending Myocardial perfusion imaging study: Technique: The patient was injected with 11.1 millicuries of technetium 99m Cardiolite and subsequently rest SPECT Cardiolite nuclear imaging was obtained in the horizontal long, vertical long, and short axis views. The patient underwent pharmacologic (Regadenoson) evaluation with a peak heart rate of 103 beats per minute (71% percent predicted maximal heart rate) and a peak blood pressure of 148/82 mmHg. The patient was injected with 32.8 millicuries of technetium 99m Cardiolite and subsequently stress SPECT Cardiolite nuclear imaging was obtained in the horizontal long, vertical long, and short axis views. A gated Cardiolite study at peak stress was obtained. Interpretation: Rest and stress SPECT Cardiolite nuclear imaging status post realignment, normalization, and attenuation correction demonstrate relative uniform tracer uptake and myocardial perfusion appearing within normal limits. There is end systolic thickening and brightening. The gated Cardiolite study demonstrates myocardial thickening and inward wall motion. The reported LVEF is 71%. Impression: 1. Rest and stress SPECT Cardiolite nuclear imaging demonstrate relative uniform tracer uptake and myocardial perfusion appearing within normal limits. 2. The gated Cardiolite study reports an LVEF of 71%. This note was generated with [employer] software. It may contain incorrect words, spelling, and punctuation that were not noted in checking the note before signing.
== END 2021-09-03 23:59 | disposition home or self-care (01) ==
LOC: CVS 06:08
PROVIDERS: PCP Preventive Medicine Occupational Medicine; Referring Provider Physician Assistant Medical; Visit Provider Physician Assistant Medical
DX: I20.9 Angina pectoris, unspecified (principal); R07.9 Chest pain, unspecified
CPT/HCPCS: 78452; 93017; A9500; A4216; J2785

== ENCOUNTER → 2021-11-17 | Outpatient (CLI) | payer MEDICARE, OTHER, SELFPAY ==
--- NOTE | 2021-11-17 13:05 | PFTCOMP_ITS ---
COMPLETE PULMONARY FUNCTION TEST INTERPRETATION Brief HPI: Patient is a 76 year old female, currently under the care of Kristin Aceves, who presents to [facility] for complete pulmonary function tests secondary to diagnosis of high risk med use. Respiratory therapist reports good effort and reproducible results. Interpretation: Forced expiration spirometry shows no large airways obstructive ventilatory defect with an FEV1 of 142% predicted. There is no significant bronchodilator response by strict ATS criteria. Spirograms are of good quality and plateau normally. The respiratory flow volume loop shows a normal pattern. Lung volumes by body plethysmography show a normal total lung capacity at 4.37 L, 100% predicted. All other lung volumes are within normal limits. Diffusion capacity by carbon monoxide is normal at 103% predicted. The airway resistance is normal. Compared to previous pulmonary function tests from 04/10/2020, there has been improvement in air trapping with some decrease in DLCO. Impression: These pulmonary function tests are within normal limits.
== END | disposition home or self-care (01) ==
LOC: PSN 08:10
PROVIDERS: PCP Preventive Medicine Occupational Medicine; Visit Provider Physician Assistant Medical
DX: I49.3 Ventricular premature depolarization (principal); Z79.899 Other long term (current) drug therapy
CPT/HCPCS: 93225; 93226; 94060; 94726; 94729

== ENCOUNTER 2021-11-24 09:33 | Emergency (ER) | payer MEDICARE, OTHER, SELFPAY ==
[2021-11-24 09:34] VITALS: BP 159/115; PULSE 85; RESP 20; TEMP 36.4; O2SAT 99; BMI 26.6
[2021-11-24 09:38] VITALS: RESP 13
--- NOTE | 2021-11-24 10:20 | RAD_ITS ---
STUDY: X-RAY CHEST REASON FOR EXAM: Female, 76 years old. Syncope TECHNIQUE: Single AP portable view of the chest. COMPARISON: Comparison is made with prior study dated 10/28/2020. FINDINGS: EKG electrodes are seen. Spinal cord stimulator electrodes are seen. These are unchanged. Hyperinflation. The lungs are clear. There is no demonstrated pleural abnormality. Normal size heart. Normal mediastinum and bailey. Normal visualized pulmonary arteries. There is atherosclerotic tortuosity of the aortic arch and descending thoracic aorta. Normal visualized thoracic spine. Prior fusion in the lower cervical spine. There is no demonstrated abnormality of the visualized soft tissue structures of the upper abdomen. RAD/Chest 1 View (Portable) IMPRESSION: Hyperinflation. The lungs are clear. Electronically Signed: Boris Pina MD at 10:44 EDT ,
[2021-11-24 10:30] LABS: Absolute Lymphocyte Count 1.23 X10^3/uL (0.83-4.51); Absolute Neutrophil Count 4.8 X10^3/uL (2.0-7.7); Basophil# 0.02 X10^3/uL; Basophil% 0.3 % (0-1); Eosinophil# 0.06 X10^3/uL; Eosinophils% 0.9 % (0-5); Hematocrit 39.8 % (37-47); Hemoglobin 13.2 g/dL (12.0-15.0); Lymphocyte # 1.23 X10^3/ul (0.83-4.51); Lymphocyte % 19.1 % (19-41); Mean Corp Hgb Conc 33.2 g/dL (32-36); Mean Corpuscular Hgb 33.6 pg (27.0-32.0); Mean Corpuscular Volume 101.3 fL (81-99); Mean Platelet Vol. 9.7 fl (6.2-12.0); Monocyte# 0.28 X10^3/uL; Monocyte% 4.3 % (0-10); NRBC Flagged by Analyzer 0 % (0-5); Neutrophil # 4.82 X10^3/uL (2.7-7.7); Neutrophil % 74.9 % (47-70); Platelet Count 274 K/mm3 (150-450); RBC Distribution Width CV 12.2 % (11.6-14.6); RBC Distribution Width SD 46.3 fl (35.1-43.9); Red Blood Count 3.93 M/mm3 (4.2-5.4); White Blood Count 6.4 K/mm3 (4.4-11.0)
[2021-11-24 10:44] LABS: Anion Gap 3 (5-15); BUN 16 mg/dL (7-18); BUN/Creat Ratio 23.4 RATIO (10-20); Calcium,Total 8.9 mg/dL (8.5-10.1); Chloride 110 mmol/L (98-107); Creatinine, Serum 0.68 mg/dL (0.55-1.02); EST Glomerular Filtration Rate 89 mL/min (>60); Est Glom Filt Rate - Afr Amer 108 mL/min (>60); Estimated Creatinine Clearance 38.44 ml/min; Glucose 103 mg/dL (74-106); Potassium 4.1 mmol/L (3.5-5.1); Sodium Level 141 mmol/L (136-145); Troponin-I HS < 3 pg/mL (3.0-54.0)
--- NOTE | 2021-11-24 11:08 | EDS_ITS ---
HPI History of Present Illness Chief Complaint: Dizziness Informant: patient Narrative Narrative: Patient presents from outpatient procedures department for syncopal episode. Status post lumbar ablation by Dr. Gordon under anesthesia. Denies chest pain states feels fluttering. This was done under general anesthesia. This done an hour prior to arrival. Patient states she is getting ready to be discharged when she felt lightheaded and had a syncopal episode. History of coronary disease with 1 stent then followed by Dr. Santillan. Prior similar symptoms: No PFSH PFSH Medical History Angina pectoris Atherosclerotic heart disease of [place] coronary artery without angina pectoris Body mass index (bmi) 27.0-27.9, adult Essential hypertension Hyperlipidemia Hypertension Merino's neuroma Nonrheumatic mitral (valve) insufficiency Nonrheumatic mitral (valve) prolapse Palpitations Presence of stent in coronary artery (~11/06/20) Pure hypercholesterolemia Ventricular premature depolarization Home Medications aspirin 81 mg PO QHS 09/16/14 [History Last Taken 03/24/21] atorvastatin 80 mg PO DAILY 09/16/14 [History Last Taken 01/29/18] ropinirole 0.5 mg tablet 0.5 mg PO BID 90 Days #180 10/27/17 [History Last Taken 01/28/18] alendronate 70 mg tablet 70 mg PO QWEEK 11/05/18 [History Last Taken Unknown] nitroglycerin 0.4 mg sublingual tablet 0.4 mg SUBLINGUAL Q5M PRN #25 tab 01/09/20 [Rx Last Taken Unknown] trazodone 300 mg tablet 150 mg PO QHS tab 01/09/20 [History Last Taken Unknown] calcium carbonate 500 mg calcium (1,250 mg) tablet 1,200 mg PO DAILY tablet 10/23/20 [History Last Taken Unknown] amiodarone 200 mg tablet 200 mg PO QDAY #90 tab 06/25/21 [Rx Last Taken Unknown] omeprazole 20 mg capsule,delayed release 20 mg PO DAILY 08/25/21 [History Last Taken Unknown] oxycodone-acetaminophen 1 tab PO BID 11/24/21 [History Last Taken Unknown] valsartan 160 mg PO DAILY 11/24/21 [History Last Taken Unknown] Allergy/AdvReac Type Severity Reaction Status Date / Time amlodipine Allergy allergy Verified 11/24/21 09:34 lisinopril Allergy Unknown Verified 11/24/21 09:34 isosorbide AdvReac Intermediate STEPHENS Verified 11/24/21 09:34 sotalol AdvReac Upset Verified 11/24/21 09:34 Stomach Family History Father CAD (coronary artery disease) Cancer Rheumatoid arthritis Mother Cancer Brother Cancer prostate Surgical History H/O foot surgery H/O total hip arthroplasty H/O: hysterectomy History of left hip replacement History of percutaneous transluminal coronary angioplasty (~03/24/21) Postsurgical percutaneous transluminal coronary angioplasty (PTCA) status Presence of coronary angioplasty implant and graft (~11/06/20) Social History Smoking Status: Never smoker alcohol intake: never substance use type: does not use caffeine: Yes Type: coffee Number of servings: 1 what type of physical activity do you participate in: walking frequency: 3-4 times per week duration: 15-30 minutes/day seatbelt use: always do you feel safe at home: Yes ROS ROS ED Constitutional Constitutional ED: Denies chills, fever(s) or sweats Eyes Eyes: Denies change in vision ENT ENT ED: Denies dysphagia or sore throat Cardiovascular Cardiovascular: Reports palpitations; Denies chest pain, leg edema or racing heartbeat Respiratory/Chest Respiratory/Chest: Denies cough, dyspnea or dyspnea on exertion Gastrointestinal Gastrointestinal: Denies abdominal pain, diarrhea, nausea or vomiting Genitourinary Genitourinary ED: Denies dysuria, hematuria or urinary frequency Musculoskeletal Musculoskeletal: Denies back pain, extremity pain or neck pain Integumentary Denies rash or wounds Neurologic Neurologic: Denies headache(s), paresthesias or weakness EXAM Physical Exam Narrative Exam Narrative: Nontoxic, had shaking of the legs during my evaluation however states she was cold. Const Vital Signs: 11/24/21 09:34 11/24/21 09:37 11/24/21 09:38 Temperature 97.5 F L Temperature Source Oral Pulse Rate 85 Respiratory Rate 20 H 13 Respiratory Effort Non-Labored Blood Pressure 159/115 H Blood Pressure Mean 129 Pulse Ox 99 Oxygen Delivery Method Room Air 11/24/21 11:46 Temperature Temperature Source Pulse Rate 74 Respiratory Rate 16 Respiratory Effort Blood Pressure 146/82 H Blood Pressure Mean 103 Pulse Ox 98 Oxygen Delivery Method Room Air Positive well nourished and well developed General Appearance ED: well developed and NAD HEENT Reports moist mucous membranes normocephalic and atraumatic Eyes PERRL, EOMs intact bilaterally and conjunctivae normal General Eye ED: Yes normal appearance of both eyes Neck no lymphadenopathy and supple General: Negative for tenderness Chest Wall Chest: Negative for tenderness Resp normal respiratory effort and normal air movement Effort and Inspection: symmetric chest movement; Negative for respiratory distress Cardio regular rate, regular rhythm and no murmurs Peripheral Pulses: pulses 2+ throughout GI normal to inspection, nondistended, normoactive bowel sounds and non-tender Palpation: Negative for guarding or rebound tenderness present Back/Spine no CVA tenderness and no thoracic nor lumbar tenderness Extremity normal to inspection General Extremety ED: Negative for edema or tenderness General Extremity: Negative for edema Neuro oriented x3 and no sensory deficits noted Sensorium / Orientation: awake and alert Skin no rashes or lesions noted and no wounds MDM MDM MDM Narrative Medical decision making narrative: Normal sinus rhythm on the monitor. Patient was cold and shivering, he was turned up extra blankets. I check labs stable troponin negative. Reevaluation he had improving symptoms. Ordered for ambulation per nursing she was slight unsteady. Plan was to admit the patient, however reevaluate patient, she was standing in the room states she is feeling much better and wanted to go home. Therefore with her clinically improving, she discharged home with return precautions. All questions were answered. Lab Data Attestation: I reviewed the patient's lab results. Labs: Laboratory Results - last 24 hr 11/24/21 11/24/21 10:18 10:18 WBC 6.4 RBC 3.93 L Hgb 13.2 Hct 39.8 MCV 101.3 H MCH 33.6 H MCHC 33.2 RDW Std Deviation 46.3 H RDW Coeff of Ade[place] 12.2 Plt Count 274 MPV 9.7 Immature Gran % (Auto) 0.500 Neut % (Auto) 74.9 H Lymph % (Auto) 19.1 [place] % (Auto) 4.3 Eos % (Auto) 0.9 Baso % (Auto) 0.3 Absolute Neuts (auto) 4.8 Absolute Lymphs (auto) 1.23 Nucleated RBC % 0 Sodium 141 Potassium 4.1 Chloride 110 H Carbon Dioxide 28.0 Anion Gap 3 L BUN 16 Creatinine 0.68 Estim Creat Clear Calc 38.44 Est GFR (MDRD) Af Amer 108 Est GFR (MDRD) Non-Af 89 BUN/Creatinine Ratio 23.4 H Glucose 103 Calcium 8.9 Troponin I High Sens < 3 L Radiography Diagnostic Testing: Clinical Impression(s) from Imaging Studies Chest X-Ray 11/24/21 10:20 IMPRESSION: Hyperinflation. The lungs are clear. Electronically Signed: Boris Pina MD at 10:44 EDT , Discharge Plan Triage Chief Complaint: Dizziness ED Provider: Aram Marin Dx/Rx/DC Orders Clinical Impression: CAD (coronary artery disease), Syncope Instructions: ED Fainting, Uncertain Cause Prescriptions: No Action ropinirole 0.5 mg tablet 0.5 mg PO BID 90 Days Qty: 180 RF: 0 alendronate 70 mg tablet 70 mg PO QWEEK RF: 0 nitroglycerin 0.4 mg tablet, sublingual 0.4 mg sublingual Q5M PRN (Reason: chest pain) Qty: 25 RF: 3 calcium carbonate [Calcium 500] 500 mg calcium (1,250 mg) tablet 1,200 mg PO DAILY RF: 0 omeprazole 20 mg capsule,delayed release(DR/EC) 20 mg PO DAILY RF: 0 atorvastatin 80 MG tablet 80 mg PO DAILY RF: 0 aspirin 81 MG tablet,chewable 81 mg PO QHS RF: 0 trazodone 300 mg tablet 150 mg PO QHS RF: 0 oxycodone-acetaminophen 5-325 mg Tablet 1 tab PO BID RF: 0 valsartan 160 mg tablet 160 mg PO DAILY RF: 0 amiodarone 200 mg tablet 200 mg PO QDAY Qty: 90 RF: 3 Primary Care Provider: Luis Lyons Referrals: Mitesh Santillan MD [STAFF PHYSICIAN] - 3-5 Days Luis Lyons DO [Primary Care Provider] - Activity Restrictions/Additional Instructions: labs troponin negative. Symptoms likely from sedated medications. Follow-up with Dr. Santillan, return if any worsening symptoms. Disposition Disposition: Home, Self Care Discharge Date/Time: 11/24/21 12:52
[2021-11-24 11:46] VITALS: BP 146/82; PULSE 74; RESP 16; O2SAT 98
--- NOTE | 2021-11-24 11:56 | ED.RN ---
pt was dizzy and unsteady. provider aware.
[2021-11-24 12:41] VITALS: BP 147/75; PULSE 71; RESP 16; O2SAT 98
== END 2021-11-24 12:52 | disposition home or self-care (01) ==
PROVIDERS: Emergency Provider Emergency Medicine; PCP Preventive Medicine Occupational Medicine; Visit Provider Emergency Medicine
DX: R55 Syncope and collapse (principal); I25.10 Atherosclerotic heart disease of native coronary artery without angina pectoris; I10 Essential (primary) hypertension; E78.5 Hyperlipidemia, unspecified; G57.60 Lesion of plantar nerve, unspecified lower limb; Z95.1 Presence of aortocoronary bypass graft; E78.00 Pure hypercholesterolemia, unspecified; I34.1 Nonrheumatic mitral (valve) prolapse; Z79.82 Long term (current) use of aspirin; Z79.899 Other long term (current) drug therapy
CPT/HCPCS: 71045; 80048; 84484; 85025; 99285

== ENCOUNTER → 2022-05-20 | Outpatient (CLI) | payer MEDICARE, OTHER, SELFPAY ==
[2022-05-20 15:50] LABS: Absolute Lymphocyte Count 2.44 X10^3/uL (0.83-4.51); Absolute Neutrophil Count 3.2 X10^3/uL (2.0-7.7); Basophil# 0.03 X10^3/uL; Basophil% 0.5 % (0-1); Eosinophil# 0.12 X10^3/uL; Eosinophils% 1.9 % (0-5); Hematocrit 38.3 % (37-47); Hemoglobin 12.5 g/dL (12.0-15.0); Lymphocyte # 2.44 X10^3/ul (0.83-4.51); Lymphocyte % 37.9 % (19-41); Mean Corp Hgb Conc 32.6 g/dL (32-36); Mean Corpuscular Hgb 32.4 pg (27.0-32.0); Mean Corpuscular Volume 99.2 fL (81-99); Mean Platelet Vol. 9.8 fl (6.2-12.0); Monocyte# 0.62 X10^3/uL; Monocyte% 9.6 % (0-10); NRBC Flagged by Analyzer 0 % (0-5); Neutrophil # 3.22 X10^3/uL (2.7-7.7); Neutrophil % 49.9 % (47-70); Platelet Count 284 K/mm3 (150-450); RBC Distribution Width CV 11.9 % (11.6-14.6); RBC Distribution Width SD 43.5 fl (35.1-43.9); Red Blood Count 3.86 M/mm3 (4.2-5.4); White Blood Count 6.4 K/mm3 (4.4-11.0)
[2022-05-20 16:57] LABS: ALB/GLOB Ratio 1.2 RATIO (0.9-2.4); AST(SGOT) 9 U/L (15-37); Alanine Aminotransfer ALT/SGPT 17 U/L (13-56); Albumin, Serum 3.5 g/dL (3.2-5.0); Alkaline Phosphatase 34 U/L (45-117); Anion Gap 4 (5-15); BUN 18 mg/dL (7-18); BUN/Creat Ratio 32.4 RATIO (10-20); Calcium,Total 8.5 mg/dL (8.5-10.1); Chloride 108 mmol/L (98-107); Creatinine, Serum 0.56 mg/dL (0.55-1.02); EST Glomerular Filtration Rate 113 mL/min (>60); Est Glom Filt Rate - Afr Amer 137 mL/min (>60); Glucose 95 mg/dL (74-106); Potassium 3.8 mmol/L (3.5-5.1); Protein, Total 6.5 g/dL (6.4-8.2); Sodium Level 141 mmol/L (136-145); Thyroid Stim Hormone (TSH) < 0.01 uIU/mL (0.358-3.74)
== END | disposition home or self-care (01) ==
LOC: LAB 14:14
PROVIDERS: PCP Preventive Medicine Occupational Medicine; Visit Provider Physician Assistant Medical
DX: I49.3 Ventricular premature depolarization (principal); R00.2 Palpitations; I25.10 Atherosclerotic heart disease of native coronary artery without angina pectoris; E78.00 Pure hypercholesterolemia, unspecified; I34.0 Nonrheumatic mitral (valve) insufficiency; I10 Essential (primary) hypertension; Z79.899 Other long term (current) drug therapy
CPT/HCPCS: 36415; 80053; 83735; 84443; 85025

== ENCOUNTER → 2022-07-26 | Outpatient (CLI) | payer MEDICARE, OTHER, SELFPAY ==
[2022-07-26 12:29] LABS: Thyroid Stim Hormone (TSH) 2.93 uIU/mL (0.358-3.74)
== END | disposition home or self-care (01) ==
LOC: LAB 11:26
PROVIDERS: PCP Preventive Medicine Occupational Medicine; Referring Provider Physician Assistant Medical; Visit Provider Physician Assistant Medical
DX: E05.80 Other thyrotoxicosis without thyrotoxic crisis or storm (principal); T46.2X5A Adverse effect of other antidysrhythmic drugs, initial encounter
CPT/HCPCS: 36415; 84443

== ENCOUNTER → 2022-09-01 | Outpatient (CLI) | payer MEDICARE, OTHER, SELFPAY ==
--- NOTE | 2022-09-01 07:52 | RDU_ITS ---
Reason For Study: HTN Right Renal Artery Left Renal Artery Right renal artery ostium Left renal artery ostium 100.1/25.5 144.0/36.4 RSV/EDV. PSV/EDV. Right renal artery proximal Left renal artery proximal PSV/EDV 91.3/21.1 PSV/EDV. 135.2/34.2 . Right renal artery mid 150.6/36.4 Left renal artery mid 126.4/36.4 PSV/EDV. PSV/EDV . Right renal artery distal Left renal artery distal 127.1/37.6 130.8/41.3 PSV/EDV. PSV/EDV. Right RAR 2.2. Left RAR 2.0. Right Renal Parenchyma Left Renal Parenchyma Upper Pole Medula 34.1/10.2 Left upper pole medulla 24.3/8.8 PSV/EDV. PSV/EDV . Right upper pole medulla EDR .3 . Left upper pole medulla EDR .36 . Right upper pole medulla R.I. .7 . Left upper pole medulla R.I. .64 . [place] Cortx 29.2/8.4 PSV/EDV. UP Cortex 35.0/9.1 PSV/EDV. Right upper pole cortex EDR .29 . Left upper pole cortex EDR .26 . Right upper pole cortex R.I. .71 . Left upper pole cortex R.I. .74 . Right lower Pole medulla 37.2/10.8 Left lower Pole medulla 38.2/10.8 PSV/EDV . PSV/EDV . Right lower pole medulla EDR .29 . Left lower pole medulla EDR .28 . Right lower pole medulla R.I. .71 . Left lower pole medulla R.I. .72 . Lower Pole Cortex 35.4/10.2 Lower Pole Cortx 17.4/5.8 PSV/EDV. PSV/EDV. Left lower pole cortex EDR .34 . Right lower pole cortex EDR .29 . Left lower pole cortex R.I. .66 . Right lower pole cortex R.I. .71 . Left Renal Hilar Right Renal Hilar LT Hilar avg 47.1/12.4 PSV/EDV . Right Hilar avg 53.5/17.9 PSV/EDV. Left hilar acceleration time 50 Right hilar acceleration time 50 m/sec. m/sec. Left Renal Dimensions Right Renal Dimensions Left kidney size 10.19 cm . Right kidney size 10.2 cm . Left cortical dimension 1.78 cm . Right cortical dimension 1.88 cm . Aorta Proximal abdominal aorta 1.61 x 1.67 cm . Proximal abdominal aorta peak systolic velocity is 68.6 cm/sec . Distal abdominal aorta 1.19 x 1.18 cm . Distal abdominal aorta peak systolic velocity is 70.5 cm/sec . Normal renal veins bilat. VL/Renal Artery Duplex Ultrasound Interpretation Summary Right renal artery patent with normal velocities and no evidence of stenosis. Left renal artery patent with normal velocities and no evidence of stenosis. Right renal vein patent Left renal vein patent Right kidney normal in size Left kidney normal in size Ordering Physician: Kristin Aceves Performed By: Sherwin Juárez, RVT
[2022-09-01 09:25] LABS: Anion Gap 7 (5-15); BUN 22 mg/dL (7-18); Calcium,Total 8.5 mg/dL (8.5-10.1); Chloride 108 mmol/L (98-107); Creatinine, Serum 0.73 mg/dL (0.55-1.02); EST Glomerular Filtration Rate 82 mL/min (>60); Est Glom Filt Rate - Afr Amer 99 mL/min (>60); Glucose 88 mg/dL (74-106); Sodium Level 145 mmol/L (136-145)
[2022-09-07 22:07] LABS: Aldosterone, Serum 4.4 ng/dL (0.0-30.0)
[2022-09-09 18:57] LABS: Renin, Plasma 0.601 ng/mL/hr (0.167-5.380)
== END | disposition home or self-care (01) ==
PROVIDERS: PCP Preventive Medicine Occupational Medicine; Referring Provider Physician Assistant Medical; Visit Provider Physician Assistant Medical
DX: I10 Essential (primary) hypertension (principal)
CPT/HCPCS: 36415; 80048; 82088; 84244; 93975

== ENCOUNTER 2023-01-11 06:58 | Day surgery (SDC) | payer MEDICARE, OTHER, SELFPAY ==
--- NOTE | 2023-01-05 09:55 | RAD_ITS ---
STUDY: X-RAY CHEST REASON FOR EXAM: Female, 77 years old. Pre-op TECHNIQUE: PA and lateral views of the chest. COMPARISON: November 24, 2021 FINDINGS: The lungs are clear and expanded. There are granulomatous calcifications. There is no demonstrated pleural abnormality. There are coronary endovascular stent(s) present. Normal mediastinum and bailey. Normal visualized pulmonary arteries. Normal visualized aortic arch and descending thoracic aorta. There is demineralization of the osseous structures. There is an increased kyphosis of the thoracic spine. There are diffuse degenerative changes of the visualized thoracic spine. Stimulator device extends to the mid thoracic spine. Normal visualized ribs, clavicles, and shoulders. There is no demonstrated abnormality of the visualized soft tissue structures of the upper abdomen. RAD/Chest PA and Lateral IMPRESSION: Degenerative changes, as described above. No demonstrated acute cardiopulmonary process. Electronically Signed: Zachary Lake MD at 18:39 EDT ,
[2023-01-05 11:00] LABS: Hematocrit 40.4 % (37-47); Hemoglobin 13.2 g/dL (12.0-15.0); Mean Corp Hgb Conc 32.7 g/dL (32-36); Mean Corpuscular Hgb 33.8 pg (27.0-32.0); Mean Corpuscular Volume 103.3 fL (81-99); Mean Platelet Vol. 9.7 fl (6.2-12.0); Platelet Count 278 K/mm3 (150-450); RBC Distribution Width SD 48.9 fl (35.1-43.9); Red Blood Count 3.91 M/mm3 (4.2-5.4); White Blood Count 6.3 K/mm3 (4.4-11.0)
[2023-01-05 11:57] LABS: Anion Gap 4 (5-15); BUN 16 mg/dL (7-18); BUN/Creat Ratio 20.8 RATIO (10-20); Calcium,Total 9.3 mg/dL (8.5-10.1); Chloride 110 mmol/L (98-107); Creatinine, Serum 0.77 mg/dL (0.55-1.02); EST Glomerular Filtration Rate 78 mL/min (>60); Est Glom Filt Rate - Afr Amer 94 mL/min (>60); Glucose 97 mg/dL (74-106); Potassium 4.5 mmol/L (3.5-5.1); Sodium Level 141 mmol/L (136-145)
[2023-01-10 07:37] VITALS: BMI 24.7
--- NOTE | 2023-01-11 08:22 | CL.IE_ITS ---
Patient: JACKIE BAUTISTA Study Date: 01/11/2023 Performing: Sterling Rodriguez MD : 1945 Age: 77 Gender: female PROCEDURES PERFORMED LP01-([id number])INSERTION OF LOOP RECORDER INDICATIONS Palpitations R00.2, Ventricular premature depolarization I49.3 PROCEDURE DETAILS The patient was brought to the Catheterization Lab in the postabsorptive nonsedated state. Informed consent was obtained prior to the procedure. Local anesthetic was given subcutaneously to the left upper chest area with Lidocaine 2%. Incision was made to the left upper chest. ICM Loop Recorder was inserted. Steri-strips applied to Lt chest area. The patient tolerated the procedure well. Estimated Blood Loss: 2 ml's IMPLANTED / EX-PLANTED DEVICES IMPLANTED DEVICE(S): ICM Loop Recorder - Network Operations Lead: [email or web address], Model # [id number] DX [id number] , Serial # [id number] DEVICE PARAMETERS CONCLUSIONS / RECOMMENDATIONS Device Conclusions: Successful implantation of a patient activated loop recorder. Device Recommendations: Follow up with Primary Care Physician PROCEDURE MEDICATIONS Fentanyl 50 mcg IV Versed 1 mg IV Oxygen: 2 L/min via nasal cannula Antibiotic given in appropriate timeframe. Ancef 1 Gm IV @ 01/11/2023 07:56:40 Signed By Sterling Rodriguez MD On 01/11/2023 08:21:21 Sterling Rodriguez MD
== END 2023-01-11 09:50 | disposition home or self-care (01) ==
PROVIDERS: Physician Assistant Medical; PCP Preventive Medicine Occupational Medicine; Referring Provider Internal Medicine Cardiovascular Disease; Visit Provider Internal Medicine Cardiovascular Disease
DX: I49.3 Ventricular premature depolarization (principal); R00.2 Palpitations; I25.10 Atherosclerotic heart disease of native coronary artery without angina pectoris; Z95.5 Presence of coronary angioplasty implant and graft; Z79.82 Long term (current) use of aspirin; E78.00 Pure hypercholesterolemia, unspecified; I10 Essential (primary) hypertension; I34.0 Nonrheumatic mitral (valve) insufficiency; Z82.49 Family history of ischemic heart disease and other diseases of the circulatory system
CPT/HCPCS: 33285; 36415; 71046; 80048; 85027; 99152; 99153; J7040

== ENCOUNTER 2023-01-20 10:52 | Day surgery (SDC) | payer MEDICARE, OTHER, SELFPAY ==
[2023-01-19 07:28] VITALS: BMI 24.7
--- NOTE | 2023-01-19 19:17 | PCM.HP.BLA ---
History and Physical Shala Gupta is a 77-year-old white female who presents today for a a loop recorder explant and reimplant. She has a history of underlying CAD status post previous PCI (most recent 10/2020), mitral valve disorder with mitral valve prolapse, palpitations but secondary to PVCs, hyperlipidemia, and hypertension. She underwent a diagnostic heart catheterization which then revealed that she required stenting to her ISR of proximal LAD. She underwent on 01/13/2023. She presented back to the office on 01/18/2023 with concerns over an infection at the insertion site. She was started on antx and will have the device explanted and reimplanted today. Pt notes that she does have palpitations, these occur a few times a month. They can last up to 15 minutes. She does feel lightheaded and weak with these. this is different that what she had noted. In the past she did have a 30 day event monitor which did demonstrate PVCs. She has had not had any chest pain. Her Bp has been controlled. She complains that her nose feels cold to where she needs to put a face make to make warm. [facility] Medical History Angina pectoris Atherosclerotic heart disease of [place] coronary artery without angina pectoris Body mass index (bmi) 27.0-27.9, adult Essential hypertension Hyperlipidemia Hypertension Merino's neuroma Nonrheumatic mitral (valve) insufficiency Nonrheumatic mitral (valve) prolapse Palpitations Presence of stent in coronary artery (~11/06/20) Pure hypercholesterolemia Ventricular premature depolarization Surgical History H/O foot surgery H/O total hip arthroplasty H/O: hysterectomy History of left hip replacement History of percutaneous transluminal coronary angioplasty (~03/24/21) Postsurgical percutaneous transluminal coronary angioplasty (PTCA) status Presence of coronary angioplasty implant and graft (~11/06/20) Family History Father CAD (coronary artery disease) Cancer Rheumatoid arthritisMother CancerBrother Cancer prostate Social History Smoking Status: Never smoker alcohol intake: never substance use type: does not use caffeine: Yes Type: coffee Number of servings: 1 what type of physical activity do you participate in: walking frequency: 3-4 times per week duration: 15-30 minutes/day seatbelt use: always do you feel safe at home: Yes ROS Const Const: Negative for fatigue, weakness, headache(s), frequent falls, excessive sweating, weight gain or weight loss Eyes Eyes: Negative for blind spots, loss of peripheral vision, transient loss of vision, blurry vision, change in vision or double vision ENT ENT: Positive for dizziness; Negative for headache(s), tinnitus, Nosebleed/epistaxis or balance problems Cardio Chest Pain: No Palpitations: Yes Edema: None Muscle aches with walking: None Resp Respiratory: Negative for SOB with activity, SOB at rest, SOB orthopnea\SOB lying down or Cough GI GI: Negative nausea, vomiting, heartburn, bloating, vomiting blood/hematemesis, bright, red blood in stools or black,tarry stools : Negative for hematuria Musc Musc: Negative for muscle aches/ myalgia, muscle weakness, joint pain or balance problems Skin Skin: Negative rash or wounds Neuro Neuro: Positive for dizziness, lightheadedness and near syncope; Negative for syncope, orthostatic symptoms, frequent falls, headache(s), weakness, confusion, memory loss, restless legs, blurry vision or double vision Maikel Hematologic/Lymphatic: Negative for easy bleeding or easy bruising Endo Endo: Negative for fatigue, cold intolerance, heat intolerance or excessive sweating Psych Psych: Negative for anxiety or depression Allergy Allergy/Immunology: Negative for rash Cardiology Exam Const Appearance: cooperative, healthy appearing, comfortable, no acute distress and well developed Orientation: alert, awake and oriented x3 Head Head: normal to inspection Ears: hearing grossly normal bilaterally Nose: external nose normal Face and Sinus: face symmetric Mouth: oral mucosae normal, lip normal and moist mucous membranes Eyes General: appearance normal, both eyes and all related structures Eyelids: eyelids normal Conjunctivae: conjunctivae normal Pupils: PERRL EOM: EOM intact bilaterally Neck Neck: normal visual inspection and trachea midline; Negative no JVD Carotids: Negative bruit Chest Chest inspection: normal inspection of the chest Auscultation: Bilateral: Clear to Auscultation Cardio Palpation: normal PMI Rate: regular rate Rhythm: regular rhythm Heart sounds: S1 normal and S2 normal; Negative rub, gallop or murmur GI GI: soft, no hepatosplenomegaly and bowel sounds present Neuro General: patient alert, patient awake, patient oriented x3 and CN's II-XI intact bilaterally Extremities Pulses: Normal: Right Posterior Tibial Pulse, Left Posterior Tibial Pulse, Right Radial Pulse and Left Radial Pulse Lower Extremity Edema: None: Bilateral Psych Psychological: normal affect Supplemental Info Supplemental Information Transthoracic echocardiogram: 03-13-2014 Interpretation Summary The estimated ejection fraction is 65 %. Stage 1 diastolic dysfunction. Mild (1+) mitral valve insufficiency. Mild (1+) tricuspid valve insufficiency. Right ventricular systolic pressure estimated to be 29 mmHg. There is no comparison study available. Stress Test Report Date: 09-03-2021 Procedure: Pharmacologic stress nuclear imaging study Indications: Chest pain; CAD; PCI Consent: Per the patient Procedure: The patient underwent pharmacologic (Regadenoson 0.4mg ) evaluation with a peak heart rate of 103 beats per minute (71%predicted maximal heart rate) and a peak blood pressure of 148/82 mmHg. The baseline ECG demonstrated sinus rhythm. The peak pharmacologic ECG demonstrated no obvious ECG changes. There were no cardiac dysrhythmias pretest, during pharmacologic infusion, or recovery. There was no complaint of chest discomfort during pharmacologic infusion or recovery. The examination was discontinued secondary to completion of protocol. Impression: 1. Pharmacologic (Regadenoson) evaluation 2. Peak pharmacologic ECG with no obvious ECG change. 3. There were no cardiac dysrhythmias pretest, during pharmacologic infusion, or recovery. 4. Nuclear images pending Myocardial perfusion imaging study: Technique: The patient was injected with 11.1 millicuries of technetium 99m Cardiolite and subsequently rest SPECT Cardiolite nuclear imaging was obtained in the horizontal long, vertical long, and short axis views. The patient underwent pharmacologic (Regadenoson) evaluation with a peak heart rate of 103 beats per minute (71% percent predicted maximal heart rate) and a peak blood pressure of 148/82 mmHg. The patient was injected with 32.8 millicuries of technetium 99m Cardiolite and subsequently stress SPECT Cardiolite nuclear imaging was obtained in the horizontal long, vertical long, and short axis views. A gated Cardiolite study at peak stress was obtained. Interpretation: Rest and stress SPECT Cardiolite nuclear imaging status post realignment, normalization, and attenuation correction demonstrate relative uniform tracer uptake and myocardial perfusion appearing within normal limits. There is end systolic thickening and brightening. The gated Cardiolite study demonstrates myocardial thickening and inward wall motion. The reported LVEF is 71%. Impression: 1. Rest and stress SPECT Cardiolite nuclear imaging demonstrate relative uniform tracer uptake and myocardial perfusion appearing within normal limits. 2. The gated Cardiolite study reports an LVEF of 71%. Cardiac catheterization: 11-06-2020 CONCLUSIONS Elevated Left Ventricular End Diastolic Pressure Normal LV size, wall motion,and systolic function LVEF: by LV gram 65 % [place] Multivessel CAD LAD: stent: patent: distal to the stent: eccentric: calcified: 90 % stenosis RECOMMENDATIONS Medical therapy Risk factor modification Referred for immediate PCI DESCRIPTION OF? PROCEDURE The patient arrived to the procedure lab. The risks and benefits of the procedure as well as a full description of our services here and current unavailability of surgical backup were fully explained to the patient and/or their significant other prior to the catheterization. The Timeout was completed, verifying the correct patient and procedure. The patient's procedural site was prepped and draped in the usual fashion. Local anesthetic was given subcutaneously to right radial region with Lidocaine 2%. Using a modified Seldinger technique, and ultrasound guidance,arterial access was obtained via the right radial artery, a 6Fr sheath was inserted.? Left Coronary Artery selective angiography was performed in multiple views using a 5 Fr. 4.0 [place] catheter. Right Coronary Artery selective angiography was then performed in multiple views using a 5 Fr. 4.0 [place] catheter. Left Ventriculography was performed in BERMEO projection using a 5 Fr. Pigtail catheter. LV to AO pullback pressures were then recorded.The arterial sheath was pulled and a TR Band was applied for hemostasis 15cc air CORONARY ANGIOGRAPHY LEFT HEART ASSESSMENT Left Ventricular Ejection Fraction: by LV Gram 65 % Normal LV wall motion Elevated Left Ventricular End Diastolic Pressure LVEDP: 17 mmHg LEFT MAIN: Angiographically normal LEFT ANTERIOR DESCENDING ARTERY: PROX LAD: Previously placed stent is patent MID LAD: just distal to the stent: eccentric: calcified: 90 % Stenosis CIRCUMFLEX ARTERY: Mild calcification, Mild luminal irregularities RIGHT CORONARY ARTERY: Mild luminal irregularities PROX RCA: Mild calcification DISTAL RCA: 25 % Stenosis AORTIC ROOT: Angiographically normal PCI Cardiac Cath Report: 11/06/2020 PCI Report: Procedure performed; 1.? Successful PCI of high-grade eccentric calcified 90% stenosis/mid LAD distal to prior stent With predilatation multiple times using NC balloon 3 x 15 mm followed by placement of drug-eluting stent in synergy MR drug-eluting stent 3 x 16 mm overlap with the prior stent and postdilated using 3 x 15 mm NC balloon and achievement of 0% stenosis post procedure and maintaining MEMO-3 flow in the LAD. 2.? Placement of TR band to the right radial artery arteriotomy site. Consent; Risk and benefits of the procedure explained detail to the patient elected to proceed informed consent obtained. Preprocedure diagnosis 75-year-old patient underwent cardiac catheterization by her primary records management specialist Dr. Saw marin, patient had symptoms of increasing angina with chest pain and syncopal episode She is known to have history of CAD with prior PCI and stent of the proximal/mid LAD Angiographic views were restarted, patient has preserved LV systolic function Left main normal angiographically, left circumflex is no obstructive atherosclerosis, RCA is large dominant with mid nonobstructive atherosclerosis The target lesion involve severe eccentric stenosis distal to the mid LAD stent 90%.? With increasing angina and symptoms of chest pain with syncopal episode. Interventional plan and guide catheters, wires and balloon; We used 6 [place] 3.5 XB guide, engaged the left coronary ostium without difficulty, then will proceed with 0.014 run-through extra floppy 180 cm straight wire Then will proceed with the balloon dilatation using 2.5 x 12 mm emerge MR balloon still the lesion is very calcified and difficult to dilate with rupture of the balloon, we change the plan and then will proceed with the placement of another wire 0.014 BMW universal straight 190 cm wire and then will proceed with the using the cutting balloon which was unable to deliver therefore we changed to 2.5 x 50 mm NC Emerge balloon and we are unable to deliver the stent with that and we proceed with another NC Emerge 3 x 15 mm balloon and were able to dilate the stent as well as the lesion still there is eccentric calcification, then we are able to deliver the Synergy drug-eluting stent 3 x 16 with no evidence of dissection or limitation of flow still were able to maintain MEMO-3 flow and were able to reduce the stenosis to 0. Anticoagulation use in this case is heparin is accepted ACT due to the prior stent and overlapping of the stent and the risk of in-stent thrombosis we will start the patient on Integrilin patient was given 2 doses of Integrilin Renal function creatinine is within normal Followed with 2 mcg of Integrilin infusion. Patient was given a total of 300 Plavix in the Fret Saw Operator as well as the regular aspirin and will continue on dual antiplatelets with Plavix and aspirin in addition to the rest of the medication atorvastatin and amlodipine and rest of her cardiac medication. Following this a TR band applied to right radial artery arteriotomy site with no complication in the Fret Saw Operator Conclusion recommendations; 1 patient will continue medical treatment with dual antiplatelet as a specified Plavix/aspirin 2.? Patient will be admitted to progressive care unit overnight. 2.? We will follow up with the primary records management specialist Dr. Santillan as outpatient for continuation of cardiac care. Elodia Peters MD,[facility] Cardiac catheterization March 24, 2021 Elevated Left Ventricular End Diastolic Pressure Normal LV size, wall motion,and systolic function LVEF: by LV gram 65 % [place] Multivessel CAD RECOMMENDATIONS Risk factor modification Medical therapy Referred for immediate PCI DESCRIPTION OF PROCEDURE The patient arrived to the procedure lab. The risks and benefits of the procedure as well as a full description of our services here and current unavailability of surgical backup were fully explained to the patient and/or their significant other prior to the catheterization. The Timeout was completed, verifying the correct patient and procedure. The patient's procedural site was prepped and draped in the usual fashion. Local anesthetic was given subcutaneously to right radial region with Lidocaine 2%. Using a modified Seldinger technique, arterial access was obtained via the right radial artery, a 6Fr sheath was inserted. Left Coronary Artery selective angiography was performed in multiple views using a 5 Fr. 4.0 [place] catheter. Right Coronary Artery selective angiography was then performed in multiple views using a 5 Fr. 4.0 [place] catheter. Left Ventriculography was performed in BERMEO projection using a 5 Fr. Pigtail catheter. LV to AO pullback pressures were then recorded.The arterial sheath was pulled and a TR Band was applied for hemostasis CORONARY ANGIOGRAPHY DOMINANCE: Right Dominant LEFT HEART ASSESSMENT Left Ventricular Ejection Fraction: by LV Gram 65 % Normal LV wall motion Elevated Left Ventricular End Diastolic Pressure LVEDP: 17 mmHg LEFT MAIN: Angiographically normal LEFT ANTERIOR DESCENDING ARTERY: PROX LAD: Previously placed stent has an instent hazy: 75 % restenosis MID LAD: Previously placed stent has an instent eccentric: 25 % restenosis CIRCUMFLEX ARTERY: Mild luminal irregularities RIGHT CORONARY ARTERY: Mild luminal irregularities AORTIC ROOT: Angiographically normal PCI LESION SITE: LAD (Proximal) Lesion Complexity: High/C, chronic total occlusion: No, lesion at bifurcation: No, thrombus present: No, lesion length: 28 mm, culprit lesion: Yes, Previously treated lesion: Yes, In-stent restenosis: Yes, Timeframe of previous treatment: >2 years, Previously treated with a stent: Yes Stent Type: with stent type unknown Pre Stenosis: 80 % Pre intervention MEMO flow: 3 PROCEDURE: Balloon Angioplasty, Cutting Balloon Angioplasty The lesion was predilated multiple times with initially a compliant balloon and then a noncompliant balloon and then with a cutting balloon. The proximal part of the prior stent did not fully expand.So we felt that it will be better to treat this lesion with just PTCA and cutting balloon angioplasty without deploying another stent that would also end up being underexpanded increasing the risk of stent thrombosis. If patient has restenosis then she may need CABG. Post Stenosis: 30 % Post intervention MEMO flow: 3 Lesion Devices: Cardinal 6 Fr XB3.0 100cm Guide Catheter Us .014 BMW [place] Straight 190cm Francisco Sci EMERGE MR 3.00x12 BALLOON Francisco Sci [place] EMERGE MR 3.00x12 BALLOON [employer] Sci [place] cutting balloon 3.0x10 Assessment and Plan Assessment and Plan (1) Palpitations: (2) Ventricular premature depolarization: With her palpitations and her negative monitors would like to obtain a loop recorder to further evaluate for underlying atrial fibrillation and or ventricular tachycardia.
== END 2023-01-20 23:59 | disposition home or self-care (01) ==
LOC: CLSP 10:55
PROVIDERS: PCP Preventive Medicine Occupational Medicine; Referring Provider Internal Medicine Cardiovascular Disease; Visit Provider Internal Medicine Cardiovascular Disease
DX: R00.2 Palpitations (principal); I49.3 Ventricular premature depolarization; I10 Essential (primary) hypertension; Z79.82 Long term (current) use of aspirin; I34.1 Nonrheumatic mitral (valve) prolapse; E78.5 Hyperlipidemia, unspecified; I25.10 Atherosclerotic heart disease of native coronary artery without angina pectoris; Z95.5 Presence of coronary angioplasty implant and graft; Z79.02 Long term (current) use of antithrombotics/antiplatelets; E78.00 Pure hypercholesterolemia, unspecified

== ENCOUNTER → 2023-12-29 | Outpatient (CLI) | payer MEDICARE, OTHER, SELFPAY ==
[2023-12-29 14:51] LABS: Absolute Lymphocyte Count 3.11 X10^3/uL (0.83-4.51); Absolute Neutrophil Count 2.8 X10^3/uL (2.0-7.7); Basophil# 0.03 X10^3/uL; Basophil% 0.5 % (0-1); Eosinophils% 1.5 % (0-5); Hematocrit 34.1 % (37-47); Lymphocyte # 3.11 X10^3/ul (0.83-4.51); Lymphocyte % 46.9 % (19-41); Mean Corp Hgb Conc 32.3 g/dL (32-36); Mean Corpuscular Hgb 31.8 pg (27.0-32.0); Mean Corpuscular Volume 98.6 fL (81-99); NRBC Flagged by Analyzer 0 % (0-5); Neutrophil # 2.78 X10^3/uL (2.7-7.7); Neutrophil % 41.9 % (47-70); Platelet Count 285 K/mm3 (150-450); RBC Distribution Width CV 13.1 % (11.6-14.6); RBC Distribution Width SD 46.4 fl (35.1-43.9); Red Blood Count 3.46 M/mm3 (4.2-5.4); White Blood Count 6.6 K/mm3 (4.4-11.0)
[2023-12-29 15:39] LABS: Anion Gap 6 (5-15); BUN 26 mg/dL (7-18); BUN/Creat Ratio 27.2 RATIO (10-20); Chloride 104 mmol/L (98-107); Creatinine, Serum 0.96 mg/dL (0.55-1.02); EST Glomerular Filtration Rate 60 mL/min (>60); Est Glom Filt Rate - Afr Amer 73 mL/min (>60); Glucose 99 mg/dL (74-106); Potassium 3.9 mmol/L (3.5-5.1); Sodium Level 136 mmol/L (136-145)
== END | disposition home or self-care (01) ==
LOC: LAB 14:00
PROVIDERS: PCP Preventive Medicine Occupational Medicine; Referring Provider Nurse Practitioner Gerontology; Visit Provider Nurse Practitioner Gerontology
DX: I10 Essential (primary) hypertension (principal); R42 Dizziness and giddiness
CPT/HCPCS: 36415; 80048; 85025

== ENCOUNTER → 2024-11-27 | Outpatient (CLI) | payer MEDICARE, OTHER, SELFPAY ==
[2024-11-27 12:52] LABS: Hematocrit 36.1 % (37-47); Hemoglobin 11.8 g/dL (12.0-15.0); Mean Corp Hgb Conc 32.7 g/dL (32-36); Mean Corpuscular Volume 97.8 fL (81-99); Mean Platelet Vol. 10.4 fl (6.2-12.0); Platelet Count 253 K/mm3 (150-450); RBC Distribution Width CV 12.5 % (11.6-14.6); RBC Distribution Width SD 44.9 fl (35.1-43.9); Red Blood Count 3.69 M/mm3 (4.2-5.4); White Blood Count 5.9 K/mm3 (4.4-11.0)
[2024-11-27 13:35] LABS: Anion Gap 10 (5-15); BUN 16 mg/dL (4-19); BUN/Creat Ratio 26.8 RATIO (10-20); Calcium,Total 9.2 mg/dL (7.6-11.0); Carbon Dioxide 24.9 mmol/L (21.0-32.0); Chloride 107 mmol/L (98-108); EST Glomerular Filtration Rate 92 (>60); Glucose 98 mg/dL (70-99); Potassium 4.1 mmol/L (3.3-5.1); Sodium Level 142 mmol/L (133-145)
== END | disposition home or self-care (01) ==
LOC: BIMLAB 11:28
PROVIDERS: PCP Preventive Medicine Occupational Medicine; Referring Provider Internal Medicine Cardiovascular Disease; Visit Provider Internal Medicine Cardiovascular Disease
DX: Z95.818 Presence of other cardiac implants and grafts (principal); R00.2 Palpitations
CPT/HCPCS: 36415; 80048; 85027

== ENCOUNTER 2024-12-04 10:23 | Day surgery (SDC) | payer MEDICARE, OTHER, SELFPAY ==
--- NOTE | 2024-11-25 09:08 | HP.PCM_ITS ---
History and Physical Date of Admission: 12/04/24 Shala Gupta is a 79-year-old white female who presents today to have her Loop Recorder explanted. She has a history of underlying CAD status post previous PCI (most recent 10/2020), mitral valve disorder with mitral valve prolapse, palpitations but secondary to PVCs, hyperlipidemia, and hypertension. She underwent a diagnostic heart catheterization which then revealed that she required stenting to her ISR of proximal LAD. She underwent a ILR, however she did develop an infection and needed to have this removed. She did have a second one placed. From a cardiac standpoint, the patient is doing well. She denies any palpitations, chest pain, pressure or heaviness. She denies SOB, Orthopnea, and PND. She does not have bleeding issues; no blood in urine, stool or nosebleeds. She does acknowledge a decrease in energy level. She denies myalgias, or claudication. She does not have edema, or sudden weight gain. She does acknowledge lightheadedness with quick positional changes. She denies dizziness, syncopal or near syncopal episodes, and headaches. Intake Vital Signs See EMR Allergies See EMR Medications See EMR [facility] Medical History Infection and inflammatory reaction due to other cardiac and vascular devices, implants and grafts, initial encounter Implantable loop recorder present Nonrheumatic mitral (valve) prolapse Presence of stent in coronary artery (~11/06/20) Nonrheumatic mitral (valve) insufficiency Pure hypercholesterolemia Essential hypertension Merino's neuroma Body mass index (bmi) 27.0-27.9, adult Hypertension Hyperlipidemia Atherosclerotic heart disease of [place] coronary artery without angina pectoris Angina pectoris Palpitations Ventricular premature depolarization Surgical History History of total left knee replacement (TKR) (~08/2023) History of percutaneous transluminal coronary angioplasty (~03/24/21) Presence of coronary angioplasty implant and graft (~11/06/20) History of left hip replacement H/O total hip arthroplasty H/O foot surgery H/O: hysterectomy Postsurgical percutaneous transluminal coronary angioplasty (PTCA) status Family History Father CAD (coronary artery disease) Cancer Rheumatoid arthritisMother CancerBrother Cancer prostate Social History Smoking Status: Never smoker alcohol intake: never substance use type: does not use caffeine: Yes Type: coffee Number of servings: 1 what type of physical activity do you participate in: walking frequency: 3-4 times per week duration: 15-30 minutes/day seatbelt use: always do you feel safe at home: Yes ROS Const Const: Positive for fatigue; Negative for weakness, fever(s), headache(s), chills, frequent falls, weight gain or weight loss Eyes Eyes: Negative for blind spots, loss of peripheral vision, transient loss of vision, blurry vision, change in vision, double vision, floaters or tunnel vision ENT ENT: Negative for headache(s), dizziness, Nosebleed/epistaxis, balance problems or neck pain Cardio Chest Pain: No Palpitations: No Edema: None Muscle aches with walking: None Resp Respiratory: Negative for SOB with activity, SOB at rest or SOB orthopnea\SOB lying down GI GI: Negative nausea, vomiting, heartburn, bloating, vomiting blood/hematemesis, bright, red blood in stools or black,tarry stools Musc Musc: Negative for muscle aches/ myalgia, muscle weakness, joint pain or balance problems Neuro Neuro: Positive for lightheadedness (with positional changes); Negative for dizziness, near syncope, syncope, orthostatic symptoms, frequent falls, headache(s), weakness, blurry vision or double vision Maikel Hematologic/Lymphatic: Negative for easy bleeding or easy bruising Endo Endo: Positive for fatigue Cardiology Exam Const Appearance: cooperative, healthy appearing, comfortable, no acute distress and well developed Nutritional Appearance: average body habitus Orientation: alert, awake and oriented x3 Head Head: normal to inspection Ears: hearing grossly normal bilaterally Nose: external nose normal Face and Sinus: face symmetric Eyes General: appearance normal, both eyes and all related structures Eyelids: eyelids normal Conjunctivae: conjunctivae normal Pupils: PERRL EOM: EOM intact bilaterally Neck Neck: normal visual inspection and trachea midline; Negative no JVD Carotids: Negative bruit Chest Chest inspection: normal inspection of the chest Auscultation: Bilateral: Clear to Auscultation Cardio Palpation: normal PMI Rate: regular rate Rhythm: regular rhythm Heart sounds: S1 normal and S2 normal; Negative rub, gallop or murmur GI GI: normal to inspection and soft Neuro General: patient alert, patient awake, patient oriented x3 and CN's II-XI intact bilaterally Skin Skin: ecchymosis (to the back of lower extremities) Extremities Pulses: Normal: Right Posterior Tibial Pulse, Left Posterior Tibial Pulse, Right Radial Pulse and Left Radial Pulse Lower Extremity Edema: None: Bilateral Psych Psychological: normal affect Supplemental Info Supplemental Information Transthoracic echocardiogram: 03-13-2014 Interpretation Summary The estimated ejection fraction is 65 %. Stage 1 diastolic dysfunction. Mild (1+) mitral valve insufficiency. Mild (1+) tricuspid valve insufficiency. Right ventricular systolic pressure estimated to be 29 mmHg. There is no comparison study available. Stress Test Report Date: 09-03-2021 Impression: 1. Pharmacologic (Regadenoson) evaluation 2. Peak pharmacologic ECG with no obvious ECG change. 3. There were no cardiac dysrhythmias pretest, during pharmacologic infusion, or recovery. 4. Nuclear images pending Interpretation: Rest and stress SPECT Cardiolite nuclear imaging status post realignment, normalization, and attenuation correction demonstrate relative uniform tracer uptake and myocardial perfusion appearing within normal limits. There is end systolic thickening and brightening. The gated Cardiolite study demonstrates myocardial thickening and inward wall motion. The reported LVEF is 71%. Impression: 1. Rest and stress SPECT Cardiolite nuclear imaging demonstrate relative uniform tracer uptake and myocardial perfusion appearing within normal limits. 2. The gated Cardiolite study reports an LVEF of 71%. Cardiac catheterization: 11-06-2020 CONCLUSIONS Elevated Left Ventricular End Diastolic Pressure Normal LV size, wall motion,and systolic function LVEF: by LV gram 65 % [place] Multivessel CAD LAD: stent: patent: distal to the stent: eccentric: calcified: 90 % stenosis RECOMMENDATIONS Medical therapy Risk factor modification Referred for immediate PCI CORONARY ANGIOGRAPHY LEFT HEART ASSESSMENT Left Ventricular Ejection Fraction: by LV Gram 65 % Normal LV wall motion Elevated Left Ventricular End Diastolic Pressure LVEDP: 17 mmHg LEFT MAIN: Angiographically normal LEFT ANTERIOR DESCENDING ARTERY: PROX LAD: Previously placed stent is patent MID LAD: just distal to the stent: eccentric: calcified: 90 % Stenosis CIRCUMFLEX ARTERY: Mild calcification, Mild luminal irregularities RIGHT CORONARY ARTERY: Mild luminal irregularities PROX RCA: Mild calcification DISTAL RCA: 25 % Stenosis AORTIC ROOT: Angiographically normal PCI Cardiac Cath Report: 11/06/2020 PCI Report: Procedure performed; 1.? Successful PCI of high-grade eccentric calcified 90% stenosis/mid LAD distal to prior stent With predilatation multiple times using NC balloon 3 x 15 mm followed by placement of drug-eluting stent in synergy MR drug-eluting stent 3 x 16 mm o verlap with the prior stent and postdilated using 3 x 15 mm NC balloon and achievement of 0% stenosis post procedure and maintaining MEMO-3 flow in the LAD. 2.? Placement of TR band to the right radial artery arteriotomy site. Consent; Risk and benefits of the procedure explained detail to the patient elected to proceed informed consent obtained. Preprocedure diagnosis 75-year-old patient underwent cardiac catheterization by her primary lens grinder rough Dr. Saw marin, patient had symptoms of increasing angina with chest pain and syncopal episode She is known to have history of CAD with prior PCI and stent of the proximal/mid LAD Angiographic views were restarted, patient has preserved LV systolic function Left main normal angiographically, left circumflex is no obstructive atherosclerosis, RCA is large dominant with mid nonobstructive atherosclerosis The target lesion involve severe eccentric stenosis distal to the mid LAD stent 90%.? With increasing angina and symptoms of chest pain with syncopal episode. Interventional plan and guide catheters, wires and balloon; We used 6 [place] 3.5 XB guide, engaged the left coronary ostium without difficulty, then will proceed with 0.014 run-through extra floppy 180 cm straight wire Then will proceed with the balloon dilatation using 2.5 x 12 mm emerge MR balloon still the lesion is very calcified and difficult to dilate with rupture of the balloon, we change the plan and then will proceed with the placement of another wire 0.014 BMW universal straight 190 cm wire and then will proceed with the using the cutting balloon which was unable to deliver therefore we changed to 2.5 x 50 mm NC Emerge balloon and we are unable to deliver the stent with that and we proceed with another NC Emerge 3 x 15 mm balloon and were able to dilate the stent as well as the lesion still there is eccentric calcification, then we are able to deliver the Synergy drug-eluting stent 3 x 16 with no evidence of dissection or limitation of flow still were able to maintain MEMO-3 flow and were able to reduce the stenosis to 0. Anticoagulation use in this case is heparin is accepted ACT due to the prior ping nt and overlapping of the stent and the risk of in-stent thrombosis we will start the patient on Integrilin patient was given 2 doses of Integrilin Renal function creatinine is within normal Followed with 2 mcg of Integrilin infusion. Patient was given a total of 300 Plavix in the Airconditioning Drafting Officer as well as the regular aspirin and will continue on dual antiplatelets with Plavix and aspirin in addition to the rest of the medication atorvastatin and amlodipine and rest of her cardiac medication. Following this a TR band applied to right radial artery arteriotomy site with no complication in the Airconditioning Drafting Officer Conclusion recommendations; 1 patient will continue medical treatment with dual antiplatelet as a specified Plavix/aspirin 2.? Patient will be admitted to progressive care unit overnight. 2.? We will follow up with the primary lens grinder rough Dr. Santillan as outpatient for continuation of cardiac care. Elodai Peters MD,[facility] Cardiac catheterization March 24, 2021 Elevated Left Ventricular End Diastolic Pressure Normal LV size, wall motion,and systolic function LVEF: by LV gram 65 % [place] Multivessel CAD RECOMMENDATIONS Risk factor modification Medical therapy Referred for immediate PCI CORONARY ANGIOGRAPHY DOMINANCE: Right Dominant LEFT HEART ASSESSMENT Left Ventricular Ejection Fraction: by LV Gram 65 % Normal LV wall motion Elevated Left Ventricular End Diastolic Pressure LVEDP: 17 mmHg LEFT MAIN: Angiographically normal LEFT ANTERIOR DESCENDING ARTERY: PROX LAD: Previously placed stent has an instent hazy: 75 % restenosis MID LAD: Previously placed stent has an instent eccentric: 25 % restenosis CIRCUMFLEX ARTERY: Mild luminal irregularities RIGHT CORONARY ARTERY: Mild luminal irregularities AORTIC ROOT: Angiographically normal PCI LESION SITE: LAD (Proximal) Lesion Complexity: High/C, chronic total occlusion: No, lesion at bifurcation: No, thrombus present: No, lesion length: 28 mm, culprit lesion: Yes, Previously treated lesion: Yes, In-stent restenosis: Yes, Timeframe of previous treatment: >2 years, Previously treated with a stent: Yes Stent Type: with stent type unknown Pre Stenosis: 80 % Pre intervention MEMO flow: 3 PROCEDURE: Balloon Angioplasty, Cutting Balloon Angioplasty The lesion was predilated multiple times with initially a compliant balloon and then a noncompliant balloon and then with a cutting balloon. The proximal part of the prior stent did not fully expand.So we felt that it will be better to treat this lesion with just PTCA and cutting balloon angioplasty without deploying another stent that would also end up being underexpanded increasing the risk of stent thrombosis. If patient has restenosis then she may need CABG. Post Stenosis: 30 % Post intervention MEMO flow: 3 Lesion Devices: Cardinal 6 Fr XB3.0 100cm Guide Catheter Us .014 BMW [place] Straight 190cm [employer] Sci EMERGE MR 3.00x12 BALLOON Francisco Sci NC EMERGE MR 3.00x12 BALLOON [employer] [place] cutting balloon 3.0x10 Assessment and Plan Assessment and Plan (1) Implantable Loop Recorder Present: Status: Chronic Plan: Patient wishes to have her loop recorder removed. Will proceed with removal.
--- NOTE | 2024-11-26 17:19 | HP.PCM_ITS ---
History and Physical Date of Admission: 12/04/24 Shala Gupta is a 79-year-old white female with a history of underlying CAD status post previous PCI (most recent 10/2020), mitral valve disorder with mitral valve prolapse, palpitations but secondary to PVCs, hyperlipidemia, and hypertension. She underwent a diagnostic heart catheterization which then revealed that she required stenting to her ISR of proximal LAD. She underwent a ILR, however she did develop an infection and needed to have this removed. She did have a second one placed. She is wanting this removed. From a cardiac standpoint, the patient is doing well. She denies any palpitations, chest pain, pressure or heaviness. She denies SOB, Orthopnea, and PND. She does not have bleeding issues; no blood in urine, stool or nosebleeds. She does acknowledge a decrease in energy level. She denies myalgias, or claudication. She does not have edema, or sudden weight gain. She does acknowledge lightheadedness with quick positional changes. She denies dizziness, syncopal or near syncopal episodes, and headaches. [facility] Medical History Infection and inflammatory reaction due to other cardiac and vascular devices, implants and grafts, initial encounter Implantable loop recorder present Nonrheumatic mitral (valve) prolapse Presence of stent in coronary artery (~11/06/20) Nonrheumatic mitral (valve) insufficiency Pure hypercholesterolemia Essential hypertension Merino's neuroma Body mass index (bmi) 27.0-27.9, adult Hypertension Hyperlipidemia Atherosclerotic heart disease of [place] coronary artery without angina pectoris Angina pectoris Palpitations Ventricular premature depolarization Surgical History History of total left knee replacement (TKR) (~08/2023) History of percutaneous transluminal coronary angioplasty (~03/24/21) Presence of coronary angioplasty implant and graft (~11/06/20) History of left hip replacement H/O total hip arthroplasty H/O foot surgery H/O: hysterectomy Postsurgical percutaneous transluminal coronary angioplasty (PTCA) status Family History Father CAD (coronary artery disease) Cancer Rheumatoid arthritis Mother Cancer Brother Cancer prostate Social History Smoking Status: Never smoker alcohol intake: never substance use type: does not use caffeine: Yes Type: coffee Number of servings: 1 what type of physical activity do you participate in: walking frequency: 3-4 times per week duration: 15-30 minutes/day seatbelt use: always do you feel safe at home: Yes ROS Const Const: Positive for fatigue; Negative for weakness, fever(s), headache(s), chills, frequent falls, weight gain or weight loss Eyes Eyes: Negative for blind spots, loss of peripheral vision, transient loss of vision, blurry vision, change in vision, double vision, floaters or tunnel vision ENT ENT: Negative for headache(s), dizziness, Nosebleed/epistaxis, balance problems or neck pain Cardio Chest Pain: No Palpitations: No Edema: None Muscle aches with walking: None Resp Respiratory: Negative for SOB with activity, SOB at rest or SOB orthopnea\SOB lying down GI GI: Negative nausea, vomiting, heartburn, bloating, vomiting blood/hematemesis, bright, red blood in stools or black,tarry stools Musc Musc: Negative for muscle aches/ myalgia, muscle weakness, joint pain or balance problems Neuro Neuro: Positive for lightheadedness (with positional changes); Negative for dizziness, near syncope, syncope, orthostatic symptoms, frequent falls, headache(s), weakness, blurry vision or double vision Maikel Hematologic/Lymphatic: Negative for easy bleeding or easy bruising Endo Endo: Positive for fatigue Cardiology Exam Const Appearance: cooperative, healthy appearing, comfortable, no acute distress and well developed Nutritional Appearance: average body habitus Orientation: alert, awake and oriented x3 Head Head: normal to inspection Ears: hearing grossly normal bilaterally Nose: external nose normal Face and Sinus: face symmetric Eyes General: appearance normal, both eyes and all related structures Eyelids: eyelids normal Conjunctivae: conjunctivae normal Pupils: PERRL EOM: EOM intact bilaterally Neck Neck: normal visual inspection and trachea midline; Negative no JVD Carotids: Negative bruit Chest Chest inspection: normal inspection of the chest Auscultation: Bilateral: Clear to Auscultation Cardio Palpation: normal PMI Rate: regular rate Rhythm: regular rhythm Heart sounds: S1 normal and S2 normal; Negative rub, gallop or murmur GI GI: normal to inspection and soft Neuro General: patient alert, patient awake, patient oriented x3 and CN's II-XI intact bilaterally Skin Skin: ecchymosis (to the back of lower extremities) Extremities Pulses: Normal: Right Posterior Tibial Pulse, Left Posterior Tibial Pulse, Right Radial Pulse and Left Radial Pulse Lower Extremity Edema: None: Bilateral Psych Psychological: normal affect Assessment & Plan Assessment/Plan (1) Atherosclerotic heart disease of [place] coronary artery without angina pectoris: QUALIFIERS: [place] vs. transplanted heart: [place] heart Qualified Code(s): I25.10 - Atherosclerotic heart disease of [place] coronary artery without angina pectoris (2) Presence of stent in coronary artery: (3) Essential hypertension: (4) Implantable loop recorder present: PLAN: Plan Pt is agreeable to undergo a loop recorder removal. Will follow-up in office accordingly.
[2024-12-03 09:04] VITALS: BMI 24.1
--- NOTE | 2024-12-07 20:38 | CL.IE_ITS ---
Patient: JACKIE BAUTISTA Study Date: 12/04/2024 Performing: Sterling Rodriguez MD : 1945 Age: 79 Gender: female PROCEDURES PERFORMED [id number])REMOVAL OF LOOP RECORDER INDICATIONS PROCEDURE DETAILS The patient was brought to the Catheterization Lab in the postabsorptive nonsedated state. Informed consent was obtained prior to the procedure. Local anesthetic was given subcutaneously to the left upper chest area with Lidocaine 2%. Incision was made to the left upper chest. ICM Loop Recorder was removed. The patient tolerated the procedure well. Estimated Blood Loss: 5 ml's IMPLANTED / EX-PLANTED DEVICES EXPLANTED DEVICE(S): ICM Loop Recorder Us DEVICE PARAMETERS CONCLUSIONS / RECOMMENDATIONS Device Conclusions: Successful removal of a patient activated loop recorder. Device Recommendations: Follow up with Primary Care Physician PROCEDURE MEDICATIONS Fentanyl 50 mcg IV Versed 1 mg IV Versed 1 mg IV Oxygen: 2 L/min via nasal cannula Antibiotic given in appropriate timeframe. Ancef 2 Gm IV @ 12/04/2024 12:02:44 Signed By Sterling Rodriguez MD On 12/07/2024 20:37:53 Sterling Rodriguez MD
== END 2024-12-04 13:35 | disposition home or self-care (01) ==
PROVIDERS: Referring Provider Internal Medicine Cardiovascular Disease; Visit Provider Internal Medicine Cardiovascular Disease
DX: Z45.09 Encounter for adjustment and management of other cardiac device (principal); I25.10 Atherosclerotic heart disease of native coronary artery without angina pectoris; Z82.49 Family history of ischemic heart disease and other diseases of the circulatory system; I10 Essential (primary) hypertension; E78.00 Pure hypercholesterolemia, unspecified; Z95.5 Presence of coronary angioplasty implant and graft; Z90.710 Acquired absence of both cervix and uterus; R53.83 Other fatigue; R42 Dizziness and giddiness
CPT/HCPCS: 33286; 99152

== ENCOUNTER → 2025-06-05 | Outpatient (CLI) | payer MEDICARE, OTHER, SELFPAY ==
--- NOTE | 2025-06-05 13:43 | ECHOD_ITS ---
Reason For Study Reason For Study: MURMUR Procedure This was a 2D Doppler, Color Flow transthoracic echocardiogram. Exam performed in department. Left Ventricle Normal LV size. The estimated ejection fraction is 55 %. No evidence for diastolic dysfunction. No regional wall motion abnormalities noted. Right Ventricle Normal RV size. Normal systolic function. Atria Normal left atrium. Normal right atrium. No doppler evidence for ASD. Mitral Valve There is no mitral valve stenosis. Trivial mitral valve insufficiency. Tricuspid Valve There is no tricuspid stenosis. Trivial tricuspid valve insufficiency. Pulmonary artery systolic pressure is 35 mmHg. Aortic Valve Trisinus/trileaflet aortic valve. There is no aortic stenosis. No aortic valve insufficiency. Pulmonic Valve There is no pulmonic valvular stenosis. No pulmonic valve insufficiency. Great Vessels Normal sized aortic root. Pericardium/Pleural Trivial pericardial effusion. MMode/2D Measurements & Calculations LVIDd: 4.5 cm IVSd: 1.2 cm Ao root diam: 3.2 cm LVIDs: 3.0 cm LVPWd: 1.1 cm RVDd: 3.1 cm FS: 32.0 % LAV(MOD-bp): 33.7 ml LVAd ap4: 20.7 cm2 SV(MOD-sp4): 32.9 ml LAV(MOD-bp) Indexed: 20.4 ml/m2 LVLd ap4: 7.3 cm SI(MOD-sp4): 19.9 ml/m2 LAV(MOD-sp2): 37.8 ml EDV(MOD-sp4): 49.4 ml LAV(MOD-sp4): 28.8 ml EDV(sp4-el): 49.8 ml LVAs ap4: 10.5 cm2 LVLs ap4: 5.9 cm ESV(MOD-sp4): 16.5 ml ESV(sp4-el): 15.7 ml EF(MOD-sp4): 66.5 % EF(sp4-el): 68.5 % SV(sp4-el): 34.1 ml LA A4 area: 12.2 cm2 LA dimension(2D): 2.9 cm RA A4 area: 10.2 cm2 Time Measurements MV dec time: 0.20 sec Doppler Measurements & Calculations MV E max shaheen: 71.9 cm/sec Lat Peak E' Shaheen: 6.3 cm/sec Med Peak E' Shaheen: 4.4 cm/sec MV A max shaheen: 96.7 cm/sec E/E' lat: 11.4 E/E' med: 16.4 MV E/A: 0.74 MV V2 max: 111.9 cm/sec Ao V2 max: 161.1 cm/sec MV max P.0 mmHg MV dec slope: 361.6 cm/sec2 Ao max P.4 mmHg MV V2 mean: 62.0 cm/sec Ao V2 mean: 111.4 cm/sec MV mean P.8 mmHg Ao mean P.7 mmHg MV V2 VTI: 32.5 cm Ao V2 VTI: 39.8 cm AV (velocity ratio): 0.93 LV V1 max: 145.0 cm/sec PA V2 max: 114.3 cm/sec TR max shaheen: 272.7 cm/sec LV V1 max P.4 mmHg PA V2 mean: 74.8 cm/sec TR max P.8 mmHg LV V1 mean P.1 mmHg LV V1 mean: 107.7 cm/sec LV V1 VTI: 37.0 cm ECHO/Echo Complete Interpretation Summary The estimated ejection fraction is 55 %. No evidence for diastolic dysfunction. Trivial mitral valve insufficiency. Trivial pericardial effusion. Ordering Physician: Nori Jacob Referring Physician: Nori Jacob Performed By: Ginny Rodrigues RCS
== END | disposition home or self-care (01) ==
LOC: CVS 13:39
PROVIDERS: Referring Provider Nurse Practitioner Gerontology; Visit Provider Nurse Practitioner Gerontology
DX: R01.1 Cardiac murmur, unspecified (principal)
CPT/HCPCS: 93306